=== PATIENT | female | born 1980 | race Caucasian/White ===

== ENCOUNTER 2025-04-09 23:18 | Emergency (ER) | payer BC, MEDICARE, SELFPAY ==
--- OUTSIDE RECORDS SUMMARY | 2024-07-14 05:30 | XMS_ITS ---
Author Organization The [facility] in [place] Address [address] [place] [address] Care Team Providers Care Payment Manager Name Role Phone Afshin Mclean MD Primary Care Provider Douglas Gilliam [phone] REASON FOR VISIT rt cath removal Encounters Encounter Location Date Provider Diagnosis [facility] [address] [place] [address] 07/14/2024 Douglas Morelos End stage chronic kidney disease N18.6 Assessments Encounter Date Diagnosis (ICD Code) Assessment Notes Treatment Notes Treatment Clinical Notes Section Notes 07/14/2024 End stage chronic kidney disease (ICD-10 - N18.6) Plan Of Treatment No Information Progress Notes * Sharifa MEHTA MDOB: (43 yo F)Acc No.[id number]:07/14/2024 Patient: Teetee KATZ Sharifa Luque Provider: Lala Morelos MD :1980 A ge:43 Y S ex:Female Date:07/14/2024 Address:[address] [place] [id number] Pcp:Afshin Mclean MD * * Sign off status: Completed Visit Status: P EN (Pending) true * Provider: Lala Morelos MD Date: 1 Generated for Printi ng/Faxing/eTransmitting on: 0 04/09/2025 11:32 PM EDT
--- OUTSIDE RECORDS SUMMARY | 2024-07-14 05:45 | XMS_ITS ---
Author Organization The [place] [facility] in [place] Address [address] [place] [address] Care Team Providers Care Fuller Brush Worker Name Role Phone Caridad TORREZ, Afshin Primary Care Provider Unavail able Provider, [facility] Unavailable [phone] Encounters Encounter Location Date Provider Diagnosis [facility] [address] [place] [address] 07/14/2024 [facility] Provider Plan Of Treatment No Information Progress Notes * Sharifa MEHTA MDOB: (44 yo F)Acc No.[id number]:07/14/2024 UNLOCKED PROGRESS NOTE Patient: Teetee BRITTONSharifa LUCIO Provider: Bashir PIPER Provider :1980 A ge:43 Y S ex:Female Date:07/14/2024 Address:[address] [place], [place] [phone] Pcp:Afshin Mclean MD Check In:08:47 AM EST * * Electronic signature of ASC Provider on 04/09/2025 at 11:31 PM EDT Sign off status: Pending Visit Status: A RR (Check-In) * Provider: A FELIZ Provider Date: Generated for Printi ng/Faxing/eTransmitting on: 0 04/09/2025 11:31 PM EDT
--- OUTSIDE RECORDS SUMMARY | 2024-08-28 10:12 | XMS_ITS ---
Author Organization The [facility] in [place] Address [address] [place] [address] Care Team Providers Care Mechanical Integrity Specialist Name Role Phone Afshin Mclean MD Primary Care Provider Yara Plaza [phone] REASON FOR VISIT Dialysis Discharge 07/24/24 Encounters Encounter Location Date Provider Diagnosis [facility] Nephrology [address] [address] 08/28/2024 Yara Church Plan Of Treatment No Information Progress Notes * Sharifa MEHTA MDOB: (43 yo F)Acc No.[id number]:08/28/2024 Patient: Sharifa PIKE :1980 A ge:43 Y S ex:Female Address:[address] [place] [address], [phone] * true * Date: Generated for Printi ng/Faxing/eTransmitting on: 0 04/09/2025 11:31 PM EDT
[2025-04-09 23:20] VITALS: BP 181/101; PULSE 82; TEMP 36.6; O2SAT 97; BMI 37.1
--- OUTSIDE RECORDS SUMMARY | 2025-04-09 23:31 | XMS_ITS | Encounter Summary ---
Author Organization [facility] Address [address] [place] [address] Care Team Providers Care Director Of Content And Programming Name Role Phone ChaoAfshin Primary Care Provider [phone] Teddy Diehl RN Unavailable Unavailable Kimberly Madrigal RN Unavailable Unavailable Source Comments In the event this information is protected by the Federal Confidentiality of Alcohol and Drug AbusePatient Records regulations: The Federal rules restrict any use of the information to criminally investigate or prosecute any alcohol or drug abuse patient.[facility] Encounter Details Date Type Department Care Team (Late st Contact Info) Description 09/03/2023 Patient Msg Transplant Center [address] [phone] Provider, [facility] Holiday updates! Happy Holidays! Social History Tobacco Use Types Packs/Day Years Used Date Smoking Tobacco: Former Cigarettes Smokeless Tobacco: Never Alcohol Use Standard Drinks/Week Comments Not Currently 0 (1 standard drink = 0.6 oz pur e alcohol) Area Deprivation Index Answer Date Justin rded National Score (1-100), lower number is lower ri sk 88 05/17/2023 State Score (1-10), lower number is lower risk 8 05/17/2023 Data from: https://www.neighborhoodatlas.medicine.[facility].edu/. Last address used for calculation [address] [facility] 05/17/2023 Comments No Sex and Gender Information Value Date Recorded Sex Assigned at Not on file Legal Sex Female 2:40 AM EDT Gender Identity Not on file Sexual Orientation Not on file documented as of this encounter Plan of Treatment Upcoming Encounters Date Type Department Care Team (Late st Contact Info) Description 05/06/2025 11:00 AM EDT Office Visit Transplant Center [address] [address] Clinic, Kidney Txp [address] [place] [address] Kid Txp - follow up appointment in Transplant clinic on 05/06/2025 documented as of this encounter Visit Diagnoses Not on filedocumented in this encounter Care Teams Director Of Content And Programming Relationship Specialty Start Date End Date Afshin Chao [address] [place] [address] PCP - General Family Medicine 05/14/23 Teddy Diehl, RN Registered Nurse Transplant Center 06/29/23 Kimberly Madrigal, RN Registered Nurse Transplant Center 03/12/25 [facility] 06/07/23 documented as of this encounter
--- OUTSIDE RECORDS SUMMARY | 2025-04-09 23:31 | XMS_ITS | Encounter Summary ---
Author Organization [facility] Address [address] [place] [address] Care Team Providers Care Medical Claims Assistant Name Role Phone arron Afshin Gavin Primary Care Provider [phone] Teddy iDehl RN Unavailable Unavailable Kimberly Madrigal RN Unavailable Unavailable Source Comments In the event this information is protected by the Federal Confidentiality of Alcohol and Drug AbusePatient Records regulations: The Federal rules restrict any use of the information to criminally investigate or prosecute any alcohol or drug abuse patient.[facility] Encounter Details Date Type Department Care Team (Late st Contact Info) Description 09/22/2024 Abstract Kidney Medicine [facility] [address] [phone] Cayla Pacheco MD [address] [place] [address] Social History Tobacco Use Types Packs/Day Years Used Date Smoking Tobacco: Former Cigarettes Smokeless Tobacco: Never Alcohol Use Standard Drinks/Week Comments Not Currently 0 (1 standard drink = 0.6 oz pur e alcohol) [facility] Utilities Answer Date Recorded In the past 12 months has [employer] electric, gas, oil, or water company threatened to shut off services in your home? No 08/11/2024 PHQ-2 Answer Date Recorded PHQ-2 score 0 01/02/2024 Hunger Vital Sign Answer Date Recorded Within the past 12 months, y ou worried that your food would run out before you got the money to buy more. Never true 08/11/20 24 Within the past 12 months, t he food you bought just didn't last and you didn't have money to get more. Never true 08/11/2024 PRAPARE - Transportation Answer Date Re corded In the past 12 months, has l ack of transportation kept you from medical appointments or from getting medications? No 07/19 In the past 12 months, has l ack of transportation kept you from meetings, work, or from getting things needed for daily living? No 08/11/2024 Housing Stability Vital Sign Answer Vinnie e Recorded In the last 12 months, was t here a time when you were not able to pay the mortgage or rent on time? No 08/11/2024 In the past 12 months, how m any times have you moved where you were living? 0 08/11/2024 At any time in the past 12 m [facility], were you homeless or living in a skilled nursing (including now)? No 08/11/2024 Area Deprivation Index Answer Date Justin rded National Score (1-100), lower number is lower ri sk 88 05/17/2023 State Score (1-10), lower number is lower risk 8 05/17/2023 Data from: https://www.neighborhoodatlas.medicine.[facility].edu/. Last address used for calculation [address] [place] [address] 05/17/2023 Comments No Sex and Gender Information Value Date Recorded Sex Assigned at Not on file Legal Sex Female 2:40 AM EDT Gender Identity Not on file Sexual Orientation Not on file documented as of this encounter Functional Status * Are you deaf or do you have serious difficulty hearing? Answer Date of Assessment Author No 08/12/2024 4:29 PM Sylwia Espinoza RN * Are you blind or do you have serious difficulty seeing, even when wearing glasses? Answer Date of Assessment Author No 08/12/2024 4:29 PM Sylwia Espinoza RN * Do you have serious difficulty walking or climbing stairs? Answer Date of Assessment Author No 08/12/2024 4:29 PM Sylwia Espinoza RN * Do you have difficulty dressing or bathing? Answer Date of Assessment Author No 08/12/2024 4:29 PM Sylwia Espinoza RN * Because of a physical, mental, or emotional condition, do you have difficulty doing errands alone such as visiting a doctor's office or shopping? Answer Date of Assessment Author No 08/12/2024 4:29 PM Sylwia Espinoza RN documented as of this encounter Mental Status * Because of a physical, mental, or emotional condition, do you have serious difficulty concentrating, remembering, or making decisions? Answer Entry Date Author No 08/12/2024 4:29 PM Sylwia Espinoza RN documented in this encounter Plan of Treatment Upcoming Encounters Date Type Department Care Team (Late st Contact Info) Description 05/06/2025 11:00 AM EDT Office Visit Transplant Center [address] [address] Clinic, Kidney Txp [address] [place] [address] Kid Txp - follow up appointment in Transplant clinic on 05/06/2025 documented as of this encounter Visit Diagnoses Not on filedocumented in this encounter Care Teams Medical Claims Assistant Relationship Specialty Start Date End Date Afshin Chao [address] [place] [address] PCP - General Family Medicine 05/14/23 Teddy Diehl, RN Registered Nurse Transplant Center 06/29/23 Kimberly Madrigal, MINAL Registered Nurse Transplant Center 03/12/25 [facility] [employer] [facility] 06/07/23 documented as of this encounter
--- OUTSIDE RECORDS SUMMARY | 2025-04-09 23:31 | XMS_ITS | Clinical Summary ---
Author Organization [employer] Address [id number] [address] [place] [address] Care Team Providers Care Mold Washer Name Role Phone Eric Malave MD Primary Care Provider [phone] Allergies Active Allergy Reactions Criticality Noted Date Comments Lisinopril Swelling Medium 11/29/2017 Medications blood-glucose meter [facility] Accu Chek Glucometer, Diagnosis: E11.9 1 each 11/06/19 19 Active blood sugar diagnostic (TRUE METRIX GLUCOSE TEST STRIP) strip USE TO TEST 2 TIMES DAILY. 100 strip 5 07/13/20 22 Active acetaminophen (TYLENOL EXTRA STRENGTH) 500 mg tablet Take 1 tablet (500 mg total) by mouth every 6 (six) hours as needed for pain or fever (For mild to moderate pain, fevers). Active tacrolimus (PROGRAF) 1 mg capsuleIndicat ions:preventio n of liver transplant rejection Take 3 capsules (3 mg total) by mouth every 12 (twelve) hours Indications: liver transplant rejection prevention. Take a total of 3 mg capsules in the morning and 3 capsules at bedtime Activ e ursodioL (ACTIGALL) 300 mg capsuleIndicat ions:cholelith iasis prevention Take 1 capsule (300 mg total) by mouth in the morning and 1 capsule (300 mg total) at noon and 1 capsule (300 mg total) in the evening. Take with meals. Indications: treatment to prevent gallstones. 270 capsule 3 09/18/19 24 Active magnesium oxide (MAGOX) 400 mg tablet Take 1 tablet (400 mg total) by mouth in the morning. 08/15/20 Active mycophenolate (CELLCEPT) 250 mg capsule Take 3 capsules (750 mg total) by mouth in the morning and 3 capsules (750 mg total) before bedtime. 08/15/20 Active predniSONE (DELTASONE) 5 mg tablet Take 1 tablet (5 mg total) by mouth in the morning and 1 tablet (5 mg total) before bedtime. 07/28/20 Active SITagliptin phosphate (JANUVIA) 100 mg tabletIndicati ons:Type 2 diabetes mellitus with obesity (CMS-HCC) Take 1 tablet (100 mg total) by mouth in the morning. 90 tablet 3 11/29/19 25 Active escitalopram (LEXAPRO) 10 mg tablet Take 1 tablet (10 mg total) by mouth in the morning. 90 tablet 3 11/29/19 25 Active pantoprazole (PROTONIX) 40 mg EC tabletIndicati ons:gastroesop hageal reflux disease Take 1 tablet (40 mg total) by mouth in the morning and 1 tablet (40 mg total) in the evening. Take before meals. Indications: gastroesophageal reflux disease. 180 tablet 3 11/29/19 Active metoprolol tartrate (LOPRESSOR) 25 mg tablet Take 1 tablet (25 mg total) by mouth in the morning and 1 tablet (25 mg total) before bedtime. 180 tablet 3 11/29/19 Active Active Problems Problem Noted Date Diagnosed Date Stage 5 chronic kidney disease on chronic dialys is 2024 Immunocompromised 2024 Malnutrition of mild degree 2024 Focal (segmental) acute (rev ersible) ischemia of small intestine 2024 Chronic heart failure with preserved ejection fr action 2024 Respiratory failure, post-operative 2024 Alcohol use disorder, severe, in early remission 2024 S/P kidney transplant 2024 S/P liver transplant 2024 NADER (acute kidney injury) 05/11/2023 Acute on chronic anemia 05/11/2023 Thrombocytopenia 05/11/2023 Coagulopathy 05/11/2023 Hyperammonemia 05/11/2023 Hypoproteinemia 05/11/2023 Anemia 10/21/2018 Prolonged emergence from general anesthesia 12/2018 Overview (10/21/2018): says had trouble waking up after GB surgery at [facility] 01/04/2018 Obstructive sleep apnea syndrome 01/04/2018 Diabetes mellitus type 2 in obese 01/04/2018 Overview (12/17/2023): replacing diagnoses that were inactivated after the 12/16 regulatory import Essential hypertension 11/29/2017 Tachycardia 11/29/2017 Resolved Problems Problem Noted Date Diagnosed Date Resolved Date Hepatic encephalopathy 11/28/202411/28 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/11/2023 2024 Gastroesophageal reflux dise ase without esophagitis 01/04/2018 05/16/2019 Diabetes mellitus without complication 11/29/2017 01/04/2018 Body mass index (BMI) 50.0-59.9, adult 11/29/2017 2024 Heart abnormality 11/29/2017 Encounters Date Type Department Care Team Description 03/18/2025 10:55 AM EDT - 03/18/2025 11:59 PM EDT Hospital Encounter [facility] - Mammography/DEXA Imaging [address] [place] [phone] Encounter for screening mammogram for malignant neoplasm of breast Discharge Disposition: Home 03/17/2025 Travel 02/13/2025 Orders Only [facility] [address] [place] [id number] External, Scanning Provider from Last 3 Months Immunizations Immunization Administration Dates Next Due Influenza Whole 07/18/2010,07/08/2009 Influenza, Injectable, Quadrivalent 08/16/2023 Influenza, Injectable, quadrivalent (PF) 020 Influenza, Unspecified 07/09/2018 Pneumococcal Conjugate 20-valent 05/19/2023 Tdap 05/19/2023,11/19/2013 Zoster Vaccine Recombinant 05/22/2023 Family History Medical History Relation Name Comments Diabetes Father Carlo Roberts Hypertension Father Carlo Roberts Anesthesia problems Mother Priti Roberts prolonge d emergence and N/V Arthritis Mother Priti Roberts Hypertension Mother Priti Roberts Breast cancer Neg Hx Relation Name Status Comments Father Carlo Roberts Alive Mother Priti Roberts Alive Paternal Grandfather Alive Paternal Grandmother Alive Social History Tobacco Use Types Packs/Day Years Used Date Smoking Tobacco: Former Cigarettes Smokeless Tobacco: Never Tobacco Cessation:Counseling Given: Not Answered Comments:quit 05/2018 occasional cigarette 2 per week Alcohol Use Standard Drinks/Week Comments Not Currently 0 (1 standard drink = 0.6 oz pure alcohol) Last drink December 23 2022 per patient report AUDIT-C Answer Date Recorded Frequency of Alcohol Consumption Monthly or less 12/19/2018 Average Number of Drinks 1 or 2 019 Frequency of Binge Drinking Never 12/2018 PHQ-2 Answer Date Recorded Total Score 0 2024 Childcare Answer Date Recorded Childcare Unknown 02/24/2019 Employment Answer Date Recorded Employment Unknown 02/24/2019 Hunger Screening Answer Date Recorded Within the past 12 months we worried whether our food would run out before we got money to buy more. Never True 2024 Within the past 12 months th e food we bought just didn't last and we didn't have money to get more. Never True 2024 Purpose - Life Answer Date Recorded Purpose and direction in life Unknown Comments No Sex and Gender Information Value Date Recorded Sex Assigned at Female 02/15/2025 1:29 PM EDT Legal Sex Female 11:25 AM EDT Gender Identity Female 02/15/2025 1:29 PM EDT Sexual Orientation Choose not to disclose 2024 1:29 PM EDT Last Filed Vital Signs Vital Sign Reading Time Taken Comments Blood Pressure 132/70 2024 9:58 AM EDT Pulse 55 2024 9:58 AM EDT Temperature 36.9 C (98.5 F) 05/14/2023 11:59 AM EDT Respiratory Rate 18 2024 9:58 AM EDT Oxygen Saturation 99% 2024 9:58 AM EDT Inhaled Oxygen Concentration - - Weight 99.8 kg (220 lb) 2024 9:58 AM EDT Height 165.1 cm (5' 5 ) 08/26/2024 10:10 AM EST Body Mass Index 36.61 08/26/2024 10:10 AM EST Plan of Treatment Upcoming Encounters Date Type Department Care Team (Late st Contact Info) Description 06/08/2025 9:30 AM EDT Office Visit [facility] [address] [place] [phone] Eric Malave MD [address] [place] [address] Health Maintenance Due Date Last Done Comments Adult BMI Follow Up Plan 11/27/1997 Diabetic Foot Exam 11/29/2018 11/29/2017 COVID-19 Vaccine (3 - 2023-2 5 season) 2024 03/03/2021, 02/10/2021 Influenza Vaccine 05/18/2025 08/16/2023, , 07/09/2018, Additional history exists Colonoscopy 10/30/2025 10/30/2022 Adult BMI Screening 2025 2024 Depression Screening 2025 2024 Tobacco Screening 2025 2024 Diabetic Ophthalmology Exam 02/13/2026 02/13/2025, 0 01/24/2021 Mammogram 03/18/2026 03/18/2025, 11/16, 04/24/2020 DTaP,Tdap and Td Vaccines (3 - Td or Tdap) 05/19/2033 05/19/2023, 11/19/2013 Pap Smear Discontinued 05/18/2023 Goals Goal Patient Goal Type Associated Problems Recent Progress Patient-Stated? Author abstain from alcohol General Yes Gaviota Wilson, LENORA Note: Evaluation of progress towards goal: Maintain sobriety Medical Devices Not on file Procedures Procedure Name Priority Date/Time Associated Diagnosis Comments MAMM SCREENING BILATERAL W CAD Routine 03/18/2025 11:08 AM EDT Encounter for screening mammogram for malignant neoplasm of breast DIABETES EYE EXAM Routine 02/13/2025 HM COLONOSCOPY WITH EGD Routine 10/30/2022 from Last 3 Months or Most Recently Relevant to Health Maintenance Results * Mammography screening bilateral with CAD (03/18/2025 11:08 AM EDT) Anatomical Region Laterality Modality Breast Bilateral Mammography 03/23/2025 8:18 AM EDT Narrative 03/23/2025 8:22 AM EDT SHARIFA Luque JANINE 1980 [id number] EXAM: MAMM SCREENING BILATERAL W CAD, 03/18/2025 10:56 AM CLINICAL INDICATIONS: Screening, Encounter for screening mammogram for malignant neoplasm of breast COMPARISON: 04/24/2020 and 12/10/2023 TECHNIQUE: Bilateral digital tomosynthesis MLO and CC views of the breasts were obtained, with creation of synthetic 2D views. Computer aided detection was utilized. FINDINGS: There are scattered areas of fibroglandular density. There are no suspicious masses, calcifications, or areas of architectural distortion. IMPRESSION: No mammographic evidence of malignancy. BI-RADS: BI-RADS 1 - Negative RECOMMENDATION: Routine screening mammogram in 1 year. RISK ASSESSMENT: TC Lifetime risk: 9.37%. The patient's reported personal and family medical history was used calculate their Tyrer-Cuzick lifetime risk of malignancy. Scores less than 20% are not considered high risk per ACR guidelines and patient should continue with the above recommendation. Finalized by Cristopher Shelley MD on 03/23/2025 8:22 AM 1 b MAMM 1 YR FDA Accredited Performing Facility: [facility] - Mammography/DEXA Imaging [address] [address] Procedure Note Cristopher Shelley MD - 03/23/2025 SHARIFA Luque JANINE 1980 [id number] EXAM: MAMM SCREENING BILATERAL W CAD, 03/18/2025 10:56 AM CLINICAL INDICATIONS: Screening, Encounter for screening mammogram formalignant neoplasm of breast COMPARISON: 04/24/2020 and 12/10/2023 TECHNIQUE: Bilateral digital tomosynthesis MLO and CC views of the breastswere obtained, with creation of synthetic 2D views. Computer aideddetection was utilized. FINDINGS: There are scattered areas of fibroglandular density. There are no suspicious masses, calcifications, or areas of architecturaldistortion. IMPRESSION: No mammographic evidence of malignancy. BI-RADS: BI-RADS 1 - Negative RECOMMENDATION: Routine screening mammogram in 1 year. RISK ASSESSMENT: TC Lifetime risk: 9.37%. The patient's reported personal and family medical history was usedcalculate their [facility] lifetime risk of malignancy. Scores less than20% are not considered high risk per ACR guidelines and patient shouldcontinue with the above recommendation. Finalized by Cristopher Shelley MD on 03/23/2025 8:22 AM 1 b MAMM 1 YR FDA Accredited Performing Facility: [facility] - Mammography/DEXA Imaging [address] [facility] [address] [place] Afshin Mclean MD IMG MAMMOGRAPHY ORDERABLES F inal Result * DIABETES EYE EXAM (02/13/2025) 02/13/2025 us Scanning Provider External HEALTH MAINTENANCE Fi nal Result Performing Organization Address [facility] Co de Phone Number MANUALLY TRANSCRIBED RESULTS * COLONOSCOPY WITH EGD (10/30/2022) 10/30/2022 Impressions MANUALLY TRANSCRIBED RESULTS - 10/30/2022 Per office repeat cscope in 3 yrs us Scanning Provider External HEALTH MAINTENANCE Ed ited Result - Final Performing Organization Address [facility] Co de Phone Number MANUALLY TRANSCRIBED RESULTS from Last 3 Months or Most Recently Relevant to Health Maintenance [place] [address] [place] [address] MEDICARE Advance Directives * Full Code (Latest Code Status on File) Date Activated Date Inactivated Comments 05/11/2023 12:44 PM 05/14/2023 5:32 PM * Full Code Date Activated Date Inactivated Comments 10/30/2018 6:40 PM 10/31/2018 7:52 PM Care Teams Mold Washer Relationship Specialty Start Date End Date Eric Malave MD [address] [place] [address] PCP - General Internal Medicine 02/13/25
--- OUTSIDE RECORDS SUMMARY | 2025-04-09 23:31 | XMS_ITS | Encounter Summary ---
Author Organization [facility] Address [id number] [address] [place] [address] Care Team Providers Care Senior Licensing Manager Name Role Phone Eric Malave MD Primary Care Provider [phone] Encounter Details Date Type Department Care Team (Late st Contact Info) Description 08/09/2020 [facility]phone [facility] [address] [place] [address] Afshin Mclean MD [address]. Provider retired 12/16/24 [place], [place] [id number] Social History Tobacco Use Types Packs/Day Years Used Date Smoking Tobacco: Some Days Cigarettes Smokeless Tobacco: Never Comments:quit 05/2018 occasio nal cigarette 2 per week Alcohol Use Standard Drinks/Week Comments Yes 1 (1 standard drink = 0.6 oz pur e alcohol) AUDIT-C Answer Date Recorded Frequency of Alcohol Consumption Monthly or less 12/19/2018 Average Number of Drinks 1 or 2 019 Frequency of Binge Drinking Never 12/2018 PHQ-2 Answer Date Recorded PHQ-2 Score 0 09/06/2018 Childcare Answer Date Recorded Childcare Unknown 02/24/2019 Employment Answer Date Recorded Employment Unknown 02/24/2019 Comments No Sex and Gender Information Value Date Recorded Sex Assigned at Female 02/15/2025 1:29 PM EDT Legal Sex Female 11:25 AM EDT Gender Identity Female 02/15/2025 1:29 PM EDT Sexual Orientation Choose not to disclose 2024 1:29 PM EDT COVID-19 Exposure Response Date Recorded In the last month, have you been in contact with someone who was confirmed or suspected to have Coronavirus / COVID-19? No / Unsure 07/21/2020 8:16 AM EST documented as of this encounter Plan of Treatment Upcoming Encounters Date Type Department Care Team (Late st Contact Info) Description 06/08/2025 9:30 AM EDT Office Visit [facility] [address] [place] [phone] Eric Malave MD [address] [place] [phone] documented as of this encounter Visit Diagnoses Not on filedocumented in this encounter Additional Health Concerns Infection Onset Date Last Indicated Resolved Time COVID-19 Rule-Out 07/05/2021 07/05/2021 07/06/2021 5:20 PM EDT Enteric Rule-Out 09/05/2023 09/05/2023 09/12/2023 11:12 PM EST Assessment Noted Time PHQ-9 Depression Total Score: 0 10/03/19 9:00 AM EST A Body Mass Index follow-up plan has been documented for the patient 12/19/2018 3:58 PM EDT documented as of this encounter Care Teams Senior Licensing Manager Relationship Specialty Start Date End Date Eric Malave MD [address] [place] [phone] PCP - General Internal Medicine 02/13/25 documented as of this encounter
--- OUTSIDE RECORDS SUMMARY | 2025-04-09 23:31 | XMS_ITS | Encounter Summary ---
Author Organization [facility] Address [address] [place] [id number] Care Team Providers Care Manager Imaging Name Role Phone ChaoAfshin Primary Care Provider [phone] Teddy Diehl RN Unavailable Unavailable Kimberly Madrigal RN Unavailable Unavailable Source Comments In the event this information is protected by the Federal Confidentiality of Alcohol and Drug AbusePatient Records regulations: The Federal rules restrict any use of the information to criminally investigate or prosecute any alcohol or drug abuse patient.[facility] Encounter Details Date Type Department Care Team (Late st Contact Info) Description 09/03/2023 Patient Msg Transplant [facility] [address] [phone] Provider, [facility] Holiday updates! Happy Holidays! Social [...] is lower risk 8 05/17/2023 Data from: https://www.neighborhoodatlas.medicine.[facility].edu/. Last address used for calculation [address] [facility] 05/17/2023 Comments No Sex and Gender Information Value Date Recorded Sex Assigned at Not on file Legal Sex Female 2:40 AM EDT Gender Identity Not on file Sexual Orientation Not on file documented as of this encounter Plan of Treatment Upcoming Encounters Date Type Department Care Team (Late st Contact Info) Description 05/06/2025 11:00 AM EDT Office Visit [facility] [address] [address] Clinic, Kidney Txp [address] [place] [address] Kid Txp - follow up appointment in Transplant clinic on 05/06/2025 documented as of this encounter Visit Diagnoses Not on filedocumented in this encounter Care Teams Manager Imaging Relationship Specialty Start Date End Date Afshin Chao [address] [place] [address] PCP - General Family Medicine 05/14/23 Teddy Diehl, RN Registered Nurse Trans[facility] Center 06/29/23 Kimberly Madrigal, RN Registered Nurse [facility] 03/12/25 [facility] [employer] [facility] 06/07/23 documented as of this encounter
--- OUTSIDE RECORDS SUMMARY | 2025-04-09 23:31 | XMS_ITS | Encounter Summary ---
Author Organization [email or web address] Address [id number] [address] [place] [address] Care Team Providers Care Groover And Striper Operator Name Role Phone Eric Malave MD Primary Care Provider [phone] Reason for Visit * Reason Onset Date Comments Med Refill 04/27/2020 Encounter Details Date Type Department Care Team (Late st Contact Info) Description 04/27/2020 Refill [facility] [address] [place] [phone] Keysha Calderon LPN Social History Tobacco Use Types Packs/Day Years [...] have Coronavirus / COVID-19? No / Unsure 04/24/2020 9:55 AM EDT documented as of this encounter Plan of Treatment Upcoming Encounters Date Type Department Care Team (Late st Contact Info) Description 06/08/2025 9:30 AM EDT Office Visit [facility] [address] [place] [phone] Eric Malave MD [address] [place] [address] [phone] documented as of this encounter Visit Diagnoses [...] documented as of this encounter Care Teams Groover And Striper Operator Relationship Specialty Start Date End Date Eric Malave MD [address] [place] [address] [phone] PCP - General Internal Medicine 02/13/25 documented as of this encounter
--- OUTSIDE RECORDS SUMMARY | 2025-04-09 23:31 | XMS_ITS | Encounter Summary ---
Author Organization [facility] Address [address] [place] [address] Care Team Providers Care Manager Coding Name Role Phone arron Afshin Gavin Primary Care Provider [phone] Teddy Diehl RN Unavailable Unavailable Kimberly Madrigal RN Unavailable Unavailable Source Comments In the event this information is protected by the Federal Confidentiality of Alcohol and Drug AbusePatient Records regulations: The Federal rules restrict any use of the information to criminally investigate or prosecute any alcohol or drug abuse patient.[facility] Encounter Details Date Type Department Care Team (Late st Contact Info) Description 08/13/2023 Lab Requisition [facility] [address] [place], [place] [phone] [place] [address] [place] [address] Social History Tobacco Use Types Packs/Day Years Used Date Smoking Tobacco: Former Cigarettes Smokeless Tobacco: Never Alcohol Use Standard Drinks/Week Comments Not Currently 0 (1 standard drink = 0.6 oz pur e alcohol) Area Deprivation Index Answer Date Justin rded National Score (1-100), lower number is lower ri sk 88 05/17/2023 State Score (1-10), lower number is lower risk 8 05/17/2023 Data from: https://www.neighborhoodatlas.[facility]/. Last address used for calculation [address] [facility] 05/17/2023 Comments No Sex and Gender Information Value Date Recorded Sex Assigned at Not on file Legal Sex Female 2:40 AM EDT Gender Identity Not on file Sexual Orientation Not on file documented as of this encounter Plan of Treatment Upcoming Encounters Date Type Department Care Team (Late st Contact Info) Description 05/06/2025 11:00 AM EDT Office Visit [facility] [address] [address] Clinic, Kidney Txp [address] [place] [address] Kid Txp - follow up appointment in Transplant clinic on 05/06/2025 documented as of this encounter Procedures Procedure Name Priority Date/Time Associated Diagnosis Comments COVID NAAT, UPPER RESPIRATORY, ROUTINE Routine 08/13/2023 12:01 AM EST documented in this encounter Results * COVID NAAT, UPPER RESPIRATORY, ROUTINE (08/13/2023 12:01 AM EST) SARS-CoV-2 (Agent of COVID-19) RNA Not detected See comment [facility] 08/14/2023 3:17 PM EST [facility] Comment: The method used is RT-PCR or an equivalent NAAT method. Reference Range (the expected result in uninfected individuals): Not detected Swab NASOPHARYNGEAL SWAB / Unknown 08/13/2023 12:01 AM EST 08/13/2023 9:36 AM EST Narrative [facility] - 08/14/2023 3:17 PM EST For upper respiratory tract samples, this test has been authorized by FDA under Emergenecy Use Authorization (EUA). For lower respiratory tract samples, this test was developed and its performance characteristics determined by [facility]'s [facility] ([facility]). It has not been cleared or approved by the FDA. [facility] is regulated under CLIA as qualified to perform high-complexity testing. This test is used for clinical purposes. It should not be regarded as investigational or for research. Test performed by [facility], [facility], [address] [place] [address]. [place] Judson Perez DO MICROBIOLOGY Final Result [facility] [address] [place] [address] [place] [address], documented in this encounter Visit Diagnoses Not on filedocumented in this encounter Care Teams Manager Coding Relationship Specialty Start Date End Date Afshin Chao [address] [place] [address] PCP - General Family Medicine 05/14/23 Teddy Diehl, RN Registered Nurse [facility] 06/29/23 Kimberly Madrigal, RN Registered Nurse [facility] Center 03/12/25 [facility] [employer] [facility] 06/07/23 documented as of this encounter
--- OUTSIDE RECORDS SUMMARY | 2025-04-09 23:31 | XMS_ITS | Encounter Summary ---
Author Organization [facility] Address [address] [place] [address] Care Team Providers Care Passenger Interline Clerk Name Role Phone arron Afshin Gavin Primary Care Provider [phone] Teddy Diehl RN Unavailable Unavailable Kimberly Madrigal RN Unavailable Unavailable Source Comments In the event this information is protected by the Federal Confidentiality of Alcohol and Drug AbusePatient Records regulations: The Federal rules restrict any use of the information to criminally investigate or prosecute any alcohol or drug abuse patient.[facility] Encounter Details Date Type Department Care Team (Late st Contact Info) Description 07/06/2023 Lab Requisition [facility] [address] [place], [place] [phone] [place] [address] [place] [address] Social History Tobacco Use Types [...] is lower risk 8 05/17/2023 Data from: https://www.neighborhoodatlas.[facility].edu/. Last address used for calculation [address] 05/17/2023 Comments No Sex and Gender Information Value Date Recorded Sex Assigned at Not on file Legal Sex Female 2:40 AM EDT Gender Identity Not on file Sexual Orientation Not on file documented as of this encounter Plan of Treatment Upcoming Encounters Date Type Department Care Team (Late st Contact Info) Description 05/06/2025 11:00 AM EDT Office Visit [facility] [address] [address] Clinic, Kidney Txp [address] [place] [address] Kid Txp - follow up appointment in Transplant clinic on 05/06/2025 documented as of this encounter Procedures Procedure Name Priority Date/Time Associated Diagnosis Comments BACTERIAL CULTURE, BLOOD Routine 07/06/2023 12:18 PM EDT CDIFF PCR W/RFLX EIA IF POSITIVE Routine 07/06/2023 6:00 AM EDT URINALYSIS, WITH MICROSCOPIC STAT 07/06/2023 3:20 AM EDT documented in this encounter Results * BLOOD CULTURE (07/06/2023 12:18 PM EDT) Culture, Blood No growth 5 days 07/11/2023 12:52 PM EDT [facility] Blood BLOOD SPECIMEN / Unknown Port - Continuous Access Dev. / Unknown 07/06/2023 12:18 PM EDT 07/06/2023 2:47 PM EDT Judson Perez DO MICROBIOLOGY Final Result [facility] [address] [facility] Desk [address] [address], * CDIFF PCR W/RFLX EIA IF POSITIVE (07/06/2023 6:00 AM EDT) C. difficile PCR Negative for C. difficile toxin by PCR Negative for C. difficile toxin by PCR [employer] GENEXPERT COVID19 07/06/2023 5:14 PM EDT [facility] Stool STOOL SPECIMEN / Unknown Non Blood / Unknown 07/06/2023 6:00 AM EDT 07/06/2023 9:52 AM EDT us Maura Cohen MD LABORATORY Final Result [facility] [address] [facility] Des[address] [id number], * (ABNORMAL) URINALYSIS, WITH MICROSCOPIC (07/06/2023 3:20 AM EDT) Color Yellow Yellow 07/06/2023 10:02 AM EDT [facility] Clarity Dense Turbid(A) Clear 07/06/2023 10:02 AM EDT [facility] Glucose, Urine Negative Trace, Negative 07/06/2023 10:02 AM EDT [facility] Bilirubin, Urine Negative Negative 07/06/20 10:02 AM EDT [facility] Ketones, Urine Negative Negative, Trace 07/06/2023 10:02 AM EDT [facility] Specific [place], Ur 1.010 1.005 - 1.030 07/06/2023 10:02 AM EDT [facility] Hemoglobin/Blood ,Ur 1+(A) Negative, Trace 07/06/2023 10:02 AM EDT [facility] pH, Urine 6.0 5.0 - 8.0 07/06/2023 10:02 AM EDT [facility] Protein, Urine Trace Trace, Negative 07/06/2023 10:02 AM EDT [facility] Urobilinogen Negative Negative 07/06/2023 10:02 AM EDT [facility] Nitrites Negative Negative 07/06/2023 10:02 AM EDT [facility] Leuk Esterase 500 Leonor/uL(A) Negative, 25 Leonor/uL 07/06/2023 10:02 AM EDT [facility] WBC, Urine >25 /HPF(A) 0-5 /HPF 07/06/2023 10:02 AM EDT [facility] RBC, Urine 0-3 /HPF 0-3 /HPF 07/06/2023 10:02 AM EDT [facility] Bacteria Few(A) None Seen /HPF 07/06/2023 10:02 AM EDT [facility] Urine Random URINE SPECIMEN OBTAINED BY CLEAN CATCH PROCEDURE / Unknown Non Blood / Unknown 07/06/2023 3:20 AM EDT 07/06/2023 9:20 AM EDT us Judson Perez DO LABORATORY Final Result [facility] [address] documented in this encounter Visit Diagnoses Not on filedocumented in this encounter Additional Health Concerns Infection Onset Date Last Indicated Resolved Time COVID-19 Rule-Out 07/23/2023 07/23/2023 07/23/2023 2:25 AM EST Respiratory Rule-Out 07/23/2023 07/23/2023 023 2:25 AM EST COVID-19 Confirmed 07/23/2023 07/23/2023 8:51 PM EST documented as of this encounter Care Teams Passenger Interline Clerk Relationship Specialty Start Date End Date Afshin Chao [address] [place] [address] PCP - General Family Medicine 05/14/23 Teddy Diehl, RN Registered Nurse [facility] 06/29/23 Kimberly Madrigal, RN Registered Nurse Transplant Center 03/12/25 [employer] [facility] 06/07/23 documented as of this encounter
--- OUTSIDE RECORDS SUMMARY | 2025-04-09 23:32 | XMS_ITS | Clinical Summary ---
Author Organization 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 endorses intolerance to adhesive telemetry adhesives Lisinopril Swelling High 11/29/2017 Medications acetaminophen (TYLENOL) 500 MG tablet Take 1 tablet (500 mg total) by mouth every 6 (six) hours as needed for mild pain, moderate pain or Temp > or equal to 101F (38.3C). 3 Active acyclovir (ZOVIRAX) 400 MG tabletIndications :Medical prophylaxis Take 1 tablet (400 mg total) by mouth in the morning and 1 tablet (400 mg total) before bedtime. Indications: Medical prophylaxis. 3 Active epoetin rubén-epbx (RETACRIT) 50982 UNIT/ML solution injection Inject 1 mL (10,000 Units total) under the skin once a week. AT DIALYSIS 3 Active midodrine (PROAMATINE) 5 MG tablet 1 tablet (5 mg total) by PO/Per Tube route 3 (three) times a day as needed (SBP less than 90). 3 Active pantoprazole (PROTONIX) 40 MG EC/DR tablet Take 1 tablet (40 mg total) by mouth in the morning and 1 tablet (40 mg total) in the evening. Take before meals. 3 Active renal multivitamin (renal MVI) Tab/Cap tab/cap Take 1 each (1 capsule total) by mouth nightly. 3 Active sulfamethoxazole- trimethoprim (BACTRIM) 800-160 MG per tabletIndications :Prophylaxis Take 1 tablet by mouth 3 (three) times a week Indications: Prophylaxis. 3 Active tacrolimus (PROGRAF) 1 MG capsule Take 3 capsules (3 mg total) by mouth in the morning and 3 capsules (3 mg total) before bedtime. 3 Active ursodiol (ACTIGALL) 300 MG capsule Take 1 capsule (300 mg total) by mouth in the morning and 1 capsule (300 mg total) at noon and 1 capsule (300 mg total) in the evening. Take with meals. 3 Active Active Problems Problem Noted Date Diagnosed Date Mycosis 07/28/2023 Overview (07/30/2023): Last Assessment & Plan: 07/22 UA : +250 LE 07/22 UCX: >100 K yeast (done via straight cath) Patient is asymptomatic for UTI, makes very little urine So symptoms of vaginal yeast infection Plan Discussed with Dr. Dailey, no need to treat given no symptoms of UTI or vaginal yeast infecton COVID-19 07/23/2023 Overview (07/30/2023): Last Assessment & Plan: Assessment: Patient admitted from [place] with reported fever, weakness, COVID positive Patient reports feeling OK - reports previous small cough and runny nose. Continues with no resp complaints, satting well on RA Plan: -Txp ID following, appreciate recs. Completed course of Remdesevir (last dose 07/25). Continue dapto/zosyn while awaiting cultures from abd collection that was aspirated on 07/26 Dependence on renal dialysis 07/10/2023 Overview (07/30/2023): Last Assessment & Plan: Assessment: NADER-D, dialysis M, W, F Last HD session; 07/27, 2L removed Plan: -Nephrology consulted, appreciate recommendations for management and dialysis. Critical illness myopathy 06/30/2023 At increased risk for falls 06/27/2023 Impaired mobility 06/27/2023 Fever 06/26/2023 Overview (07/30/2023): Last Assessment & Plan: Assessment: Tmax 37.4 RVP 06/26-negative CT chest 06/26- Mixed changes with overall increase of dependent and basilar consolidative opacities with volume loss suggesting atelectasis. Superimposed secondary process such as infection/aspiration pneumonitis is not excluded. Patchy perihilar groundglass opacities with volume loss increased as well, possibly atelectatic. Superimposed edema, inflammation or hemorrhage cannot be entirely excluded. Mild increase of partially loculated small right pleural effusion. Persistent elevation of right hemidiaphragm. No other significant interval change. CT abdomen 06/26- No significant change in the low-attenuation regions in the liver transplant likely secondary to infarction. Mildly increased fluid along the right paracolic gutter and increased loculated small volume fluid in the pelvis since 06/13/2023. No foci of gas present within the fluid. Stable to slightly increased size of the poorly organized right upper quadrant subcutaneous shantelle-incisional fluid with new internal foci of gas. Plan: blood cultures NGTD Follow-up wound culture from right lateral angie removed monitor vitals Abnormal gait 06/18/2023 Physical deconditioning 06/18/2023 Leukocytosis 06/14/2023 Tube feeding diet 06/12/2023 Complication of transplanted liver 06/11/2023 Encephalopathy 06/07/2023 Acute posthemorrhagic anemia 06/06/2023 Overview (07/30/2023): Last Assessment & Plan: Assessment: - Patient was transfused during the transplant with 9 PRBC, 5 cryo, 4 PLT, 732 cells saver, 2 L albumin - On 06/06, RTOR for hematoma evacuation, washout and closure of fascia and skin. Patient received 1 units PRBCs, 1 units PLTs, 250 cc albumin, 900 cc crystalloid ~ 2 hours prior to incision and closure. - After RTOR on 06/06, patient required increased dose of pressors and was started on IVF. Patient given a total of 3 units of PRBCs - On 06/08, patient required 1 units PRBCs and she responded appropriately. 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 MELD prior to transplant: 32 - Prior to transplant, patient had urinary colonization of enterobacter cloacae (Zosyn resistant). Per ID, patient started on Meropenem. Cultures from transplant surgery and the subsequent washout were both negative. - On 06/03, the patient returned to the OR for an abdominal washout. - 06/04 LVUS: patent hepatic vasculature with appropriately directed flow. Increased diastolic flow in the main hepatic artery and its right sided branches, similar to prior exam. Stable postoperative perihepatic collection. Small perisplenic collection. - 06/05 LVUS: patent hepatic vasculature with appropriately directed flow. Peritransplant and perisplenic collections, not significantly changed. - 06/06 LVUS: patent hepatic vasculature with appropriately directed flow. Similar high diastolic flow in the hepatic arteries. Stable peritransplant collections. - On 06/06, RTOR for hematoma evacuation, washout and closure of fascia and skin. Patient received 1 units PRBCs, 1 units PLTs, 250 cc albumin, 900 cc crystalloid ~ 2 hours prior to incision and closure. - 06/07 LVUS in AM: patent hepatic vasculature with appropriately directed flow. Tardus parvus hepatic arterial waveforms compatible with impaired arterial inflow, likely stenosis at the hepatic arterial anastomosis. (Of note, afternoon LVUS on 06/07 showed the same results) - Patient was extubated on 06/07 - 06/08 LVUS: patent hepatic vasculature with appropriately directed flow. Persistent tadus parvus arterial waveforms, compatible with anastomotic stenosis. - WBC count remains elevated following RTOR on 06/06. Lactate down-trended to 1.2 on 06/08. - Patient passed a bedside swallow evaluation on 06/08 - Started midodrine 5 mg TID po/feeding tube on 06/08 in view of hypotension. - Patient started on ursodiol 300 mg po TID on 06/10/23. - 06/11 LVUS: patent hepatic vasculature with appropriately directed flow. Slight decrease in size of perihepatic fluid collections - CMV DNA 06/11: not detected - 06/12, WBC count up-trended to 23.01 and CRP up-trended from 12.3 to 14.8. A blood culture was ordered to r/o infection in the setting of previous colonization of enterobacter cloacae - As of 06/14, WBC count has slightly increased to 24.46, CRP remains stagnant at 13.3. Blood cultures are negative to date. - 06/12 LVUS: patent vasculature with appropriately directed flow - CT abd, pelvis w/o IV contrast 06/13: heterogeneous low-attenuation in the transplant liver right hepatic dome and lateral left lobe, likely related to areas of hepatic infarction. Peritransplant high attenuation fluid/blood produces as described, similar to recent ultrasounds. Poorly organized 10.4 x 3.9 x 6.7 cm RUQ SQ shantelle-incisional fluid. No internal gas. US liver 06/26-PATENT HEPATIC VASCULATURE WITH APPROPRIATELY DIRECTED FLOW. STABLE SONOGRAPHIC APPEARANCE OF THE TRANSPLANT LIVER, WITH AREAS OF PARENCHYMAL INFARCT AND PERITRANSPLANT HEMATOMA Plan: - CMP qAM, trend LFTs - Continue Acyclovir, Bactrim. Micafungin prophylaxis completed on 06/23) - Continue Heparin prophylaxis and Aspirin 81 mg po daily - Continue midodrine 5 mg TID - Small portion of lateral incision opened at bedside today- sent for culture. Pack w/ wet to dry kerlix BID Last Assessment & Plan: Assessment: 06/02/23-DBD-OLT (organox perfusion), piggyback, dCHA (GDA patch) - rCHA (left/right KING patch), Main PV - Main PV, quia-cz-meul US liver 07/10-patent hepatic vasculature with elevated hepatic arterial velocity, heterogeneous liver transplant parenchyma likely related to ischemia/infarct Plan: monitor liver function daily reviewed US liver done on 07/10 and no further intervention, continue to monitor Last Assessment & Plan: Assessment: 06/02/23-DBD-OLT (organox perfusion), piggyback, dCHA (GDA patch) - rCHA (left/right KING patch), Main PV - Main PV, [id number] CT abdomen 07/08-small to moderate bilateral pleural effusions with right lower lobe consolidative airspace opacities and mild atelectasis/infiltrate. diffusely fatty and mildly heterogeneous transplant liver, small right posterior subcapsular fluid and mild perihepatic ascites, diffuse subcutaneous emphysema along the midline abdominal wall incision extending to the 2.5cm right mid anterolateral abdominal wall subcutaneous air fluid collection medial to the skin angie, 7.8 X 2.4 X 5.5 CM right mid lateral abdominal wall fluid collection. diffuse soft tissue anasarca of the abdomen and pelvic side caballero -->patient followed by ID during previous admission (07/08-07/12) and completed course of Cipro, Flagyl, Zyvox on 07/18. Was scheduled for Txp ID f/y with soft tissue abd US on 07/25. LVUS 07/23: Patent hepatic vasculature with appropriately directed flow. Improved main hep arterial velocity since the prior. Stable heterogenous liver transplant parenchyma, likely related to infarct. Stable peritransplant collection US soft tissue abd 07/24: Right abdominal wall heterogeneous collection, similar to CT 07/08/2023, possibly representing remote hematoma. 07/26 s/p image guided drainage right abdominal wall fluid collection, culture growing rare VRE LFTs stable Plan: -CMP qAM - right/lateral side of incision drained on 07/26, follow-up cultures -Wound care for right open part of incision--> aquacel dressing to be changed once daily -ID following, appreciate recs. Continue dapto/zosyn today and discuss final plan for oral antibiotics with ID tomorrow -Continue ppx acyclovir, bactrim, PPI Last Assessment & Plan: Assessment: prograf 4mg BID myfortic 360mg BID prograf level is pending Plan: no changes in immunosuppression monitor prograf levels daily Last Assessment & Plan: Assessment: Flow Cytometry T and B Cell crossmatches negative Donor Specific Antibody detected to B44. Current IS: FK 5 mg BID FK level: 13 Plan: -hold dose of tacrolimus tonight and start 4/4 tomorrow -Daily FK level -Myfortic on hold d/t Covid Acute postoperative pain 06/02/2023 Overview (07/30/2023): Last Assessment & Plan: Assessment: - Current pain regimen: - Tylenol 500 mg oral q6h PRN - Oxycodone 5 mg q6h prn Plan: - continue current pain medications Postprocedural respiratory failure 06/02/2023 Overview (07/30/2023): Last Assessment & Plan: Assessment: Arrived to SICU intubated post OLT 06/02. Back to OR 06/03 for continuous AMELIE drain output, hemodynamically unstable. 06/07: Extubated 06/09: 2L NC Plan: - BPH, OOB - Albuterol prn - Wean oxygen as able Irritant contact dermatitis 05/31/2023 Hypervolemia 05/27/2023 Adjustment disorder with mixed anxiety and depre ssed mood 05/25/2023 Overview (07/30/2023): Last Assessment & Plan: Assessment: - Patient has a hx of adjustment disorder with mixed anxiety and depression. - Home med: duloxetine - Txp Psych was consulted and diagnosed the patient with multifactorial encephalopathy. There were additional concerns for paranoia. Recommendations included Abilify 5 mg TID prn and Precedex for sleep if hemodynamically tolerable. - Patient was started on Quetiapine and Remeron at bedtime. Home med Duloxetine was resumed. - Duloxetine and Quetiapine discontinued and patient was started on Abilify 2 mg TID prn per Txp Psych. - On 06/12 Txp Psych recommended scheduled Abilify 2 mg TID for agitation/anxiety and to continue Abilify 2 mg TID prn for breakthrough agitation/anxiety. - CT abd, pelvis w/o IV contrast 06/13: heterogeneous low-attenuation in the transplant liver right hepatic dome and lateral left lobe, likely related to areas of hepatic infarction. Peritransplant high attenuation fluid/blood produces as described, similar to recent ultrasounds. Poorly organized 10.4 x 3.9 x 6.7 cm RUQ SQ shantelle-incisional fluid. No internal gas. - CT of chest w/o IV contrast 06/13: Extensive atelectasis with near complete collapse/volume loss of the right middle and lower lobes. Subsegmental atelectases in the lingula and left lower lobe. Interval resolution of previously seen bilateral upper lobe ground glass opacities. Trace right pleural effusion. No thoracic lymphadenopathy. - CT brain 06/16 negative for acute process Plan: - Continue to monitor patient for sxs - Continue scheduled Abilify 2 mg TID and Abilify 2 mg TID prn for breakthrough anxiety/agitation. Also on Remeron 7.5 mg qhs - Txp Psych is following, recommendations appreciated - BC 06/13-NTD Metabolic acidosis 05/25/2023 Overview (07/30/2023): Last Assessment & Plan: Resolved Liver disease 05/24/2023 Overview (07/30/2023): Last Assessment & Plan: Assessment: CT abdomen 07/08-small to moderate bilateral pleural effusions with right lower lobe consolidative airspace opacities and mild atelectasis/infiltrate. diffusely fatty and mildly heterogeneous transplant liver, small right posterior subcapsular fluid and mild perihepatic ascites, diffuse subcutaneous emphysema along the midline abdominal wall incision extending to the 2.5cm right mid anterolateral abdominal wall subcutaneous air fluid collection medial to the skin angie, 7.8 X 2.4 X 5.5 CM right mid lateral abdominal wall fluid collection. diffuse soft tissue anasarca of the abdomen and pelvic side caballero Plan: infectious disease on consult, appreciate recommendations wound care for open portion of incision no further surgical intervention at this time Adjustment disorder with anxious mood 05/23/2023 Alcohol use disorder, severe, in early remission 05/23/2023 Eruption 05/22/2023 Hepatorenal syndrome 05/22/2023 Pruritus 05/22/2023 Pulmonary hypertension 05/22/2023 Overview (07/30/2023): Last Assessment & Plan: Assessment: - 05/15/23 ECHO: estimated right ventricular systolic pressure of 48 mmHg consistent with mild pulmonary hypertension. - 05/24/23 Stress ECHO Dobutamine: major resting echocardiographic findings were comparable to 05/15/23 ECHO - ECHO on 06/12/23: RVSP unable to be measured. Consider repeat ECHO as an outpatient Plan: - Continue to monitor Body mass index 40+ - severely obese 05/18/2023 Heart failure with normal ejection fraction 09/2022 Overview (07/30/2023): Last Assessment & Plan: Assessment: Patient with HFpEF noted in problem list, on metoprolol and valsartan FIELD MANAGER ECHO 05/24/23: CONCLUSIONS: - Technically difficult exam due to suboptimal positioning. - Exam indication: Pre-op for liver transplant - The dobutamine stress echo was negative for ischemia at 86 % of MPHR. - The left ventricle is normal in size. Left ventricular systolic function is normal. EF = 70 5% (2D biplane) Definity contrast used for endocardial border detection. - The right ventricle is normal in size. Right ventricular systolic function is normal. - The left atrial cavity is dilated. - Exam was compared with the prior CC echocardiographic exam performed on 05/15/2023. On direct comparison, the major resting echocardiographic findings are comparable. ECHO 06/12/23 Left ventricular systolic function is normal. EF = 63 5% (2D 4-ch.) Left ventricular diastolic function was not evaluated. - The right ventricle is normal in size. Right ventricular systolic function is normal. Plan: -Continue to monitor Skin cancer screening 05/18/2023 Morbid obesity 05/16/2023 Dysphagia 05/15/2023 Malnutrition of moderate degree 05/15/2023 Overview (07/30/2023): Last Assessment & Plan: Assessment: alcohol cirrhosis s/p OLT. Plan: - Nutrition on board - Advance Tube feeds Acute nontraumatic kidney injury 05/11/2023 Overview (12/21/2023): Last Assessment & Plan: Assessment: - Baseline Cr 0.5-1.0 - On admission, Cr was 2.43. - US on 05/15 showed no hydronephrosis - On 05/26, the patient was started on CRRT. - On 06/09, the patient received 100 mg IV lasix and 50 g albumin - Hannon catheter was removed on 06/09 - Patient was on CVVHD following liver txp. CVVHD was discontinued and iHD was attempted. The patient failed to tolerate iHD d/t hypotension on 06/09. Per Nephrology, iHD will be attempted again with administration of midodrine 10 mg prn. - Patient tolerated iHD on 06/11 and remains on iHD. - Patient is currently not making much urine Plan: - Nephrology is following, appreciate recommendations and dialysis management -IHD Sunday, Sunday and Sunday - Midodrine 10 mg prn with dialysis per Nephrology recs - Continue Midodrine 5 mg TID - Daily CMP to continue monitoring electrolytes - Continue to monitor I/Os Last Assessment & Plan: Assessment: Baseline creatinine 0.5-1.0. Patient arrived to hospital with Cr 2.43. - 05/15 US kidney showed no hydronephrosis - Started on CRRT 05/26 - Did not tolerate iHD on 06/08 or 06/09 Plan: - Listed for PIRRT vs iHD per nephrology - Nephrology on board - Monitor electrolytes - Midodrine with dialysis per nephrology December SNOMED Diagnostic import Blood coagulation disorder 05/11/2023 Cirrhosis of liver 05/11/2023 Hyperammonemia 05/11/2023 Hypoproteinemia 05/11/2023 Thrombocytopenia 05/11/2023 Chronic anemia 10/21/2018 Weakness 01/04/2018 Obstructive sleep apnea syndrome 01/04/2018 Overview (07/30/2023): Last Assessment & Plan: Assessment: Patient with hx of REGINALD, reportedly no CPAP at home on room air Plan: -monitor respiratory status -See resp insufficiency Type 2 diabetes mellitus 01/04/2018 Overview (07/30/2023): Last Assessment & Plan: Assessment: - Home meds: Metformin and Novolog 7 units TID with meals. - 05/14 A1C was 4.3% Plan: - Continue to hold home meds - endocrinology consulted, signed off on 06/16/23 - hold SSI and monitor AM BS level (06/22) Essential hypertension 11/29/2017 Tachycardia 11/29/2017 Immunizations Immunization Administration Dates Next Due Pfizer SARS-CoV-2 Vaccination (Bivalent) Pfizer SARS-CoV-2 Vaccination (Vivar Cap) 021 Social History Tobacco Use Types Packs/Day Years Used Date Smoking Tobacco: Former Cigarettes Smokeless Tobacco: Never Tobacco Cessation:Counseling Given: Not Answered Alcohol Use Standard Drinks/Week Comments Not Currently 0 (1 standard drink = 0.6 oz pur e alcohol) Comments Unknown Sex and Gender Information Value Date Recorded Sex Assigned at Not on file Legal Sex Female 11:03 AM EDT Gender Identity Not on file Sexual Orientation Not on file Last Filed Vital Signs Vital Sign Reading Time Taken Comments Blood Pressure 118/76 08/16/2023 8:00 AM EST Pulse 119 08/16/2023 8:00 AM EST Temperature 35.9 C (96.6 F) 08/16/2023 8:00 AM EST Respiratory Rate 16 08/16/2023 8:00 AM EST Oxygen Saturation 100% 08/16/2023 8:00 AM EST Inhaled Oxygen Concentration - - Weight 91.1 kg (200 lb 14.4 oz) 08/16/2023 4:00 AM EST Height 165.1 cm (5' 5 ) 08/01/2023 11:4 9 AM EST Body Mass Index 33.43 08/01/2023 11:49 AM EST Plan of Treatment Health Maintenance Due Date Last Done Comments CT Colonography 1979 Colonoscopy 1979 Colorectal Cancer Screening 1979 FIT-DNA (Cologuard) 1979 FIT 1979 FOBT 1979 HPV/PAP 1979 Hemoglobin A1C 1979 Sigmoidoscopy 1979 Annual Visit Topic 11/27/1980 MMR Vaccines (1 of 1 - Standard series) 11/27/1980 Ophthalmology Exam 11/27/1989 Urine Microalbumin 11/27/1989 Hepatitis A Vaccines (1 of 2 - Risk 2-dose series) 11/27/1998 Hepatitis B Vaccines (1 of 3 - 19+ 3-dose series) 11/27/1998 08/13/2023, 07/05/2023 Pap Smear 11/27/2000 Cervical Cancer Screening 11/27/2009 HPV/Cotest 11/27/2009 HPV 11/27/2009 Mammogram 2019 DTaP/Tdap/Td Vaccines (3 - T d or Tdap) 05/19/2033 05/19/2023, 11/19/2013 Hepatitis C Screening Completed 07/05/2023 HIB Vaccines Aged Out No longer eligi ble based on patient's age to complete this topic HPV Vaccines Aged Out No longer eligi ble based on patient's age to complete this topic IPV Vaccines Aged Out No longer eligi ble based on patient's age to complete this topic Meningococcal Vaccine Aged Out No kathia jarod eligible based on patient's age to complete this topic Pneumococcal Vaccine: Pediatrics (0 to 5 years) and At-Risk Patients (6 to 64 Years) Aged Out No longer eligible b ased on patient's age to complete this topic Procedures Procedure Name Priority Date/Time Associated Diagnosis Comments HEPATITIS B CORE ANTIBODY, IGM Routine 08/13/2023 5:40 AM EST HEPATITIS C RNA, QUANTITATIVE, PCR Routine 07/05/2023 5:50 AM EDT from Last 3 Months or Most Recently Relevant to Health Maintenance Results * Hepatitis B core antibody, IgM (08/13/2023 5:40 AM EST) Hep B C IgM Interp Negative Negative 08/13/2023 5:09 PM EST [facility] Comment:No evidence of recen t infection with Hepatitis B virus. Should recent infection be suspected, repeat testing may be considered 3-4 weeks after this draw. Blood (Blood, Venous) 08/13/2023 5:40 AM EST 08/13/2023 1:18 PM EST [facility] BLOOD ORDERABLES Final R esult Performing Organization Address [facility] Co de Phone Number [facility] [employer] [address] [place] [address] [facility] [address] [address] * HEPATITIS C RNA, QUANTITATIVE, PCR (07/05/2023 5:50 AM EDT) HCV RNA Quant by PCR, interp HCV RNA not detected by PCR. HCV RNA not detected by PCR. 07/06/2023 5:29 AM EDT [facility] Blood (Blood, Venous) 07/05/2023 5:50 AM EDT 07/05/2023 5:32 PM EDT [facility] BLOOD ORDERABLES Final R esult Performing Organization Address City/[facility] Co de Phone Number [facility] [employer] [address] [place] [address] [facility] [address] [place] [phone] from Last 3 Months or Most Recently Relevant to Health Maintenance Advance Directives * Full Resuscitation (Latest Code Status on File) Date Activated Date Inactivated Comments 07/31/2023 5:24 PM 08/16/2023 11:08 AM Will asse ss at admit. Full code in hospital. Question Answer Comments I have discussed this order with the patient or his/her surrogate and have received informed consent. Yes * Full Resuscitation Date Activated Date Inactivated Comments 07/12/2023 6:45 PM 07/23/2023 4:33 AM Question Answer Comments I have discussed this order with the patient or his/her surrogate and have received informed consent. Yes * Full Resuscitation Date Activated Date Inactivated Comments 06/30/2023 2:45 PM 07/08/2023 10:43 PM Question Answer Comments I have discussed this order with the patient or his/her surrogate and have received informed consent. Yes
--- OUTSIDE RECORDS SUMMARY | 2025-04-09 23:32 | XMS_ITS | Encounter Summary ---
Author Organization [facility] Address [facility] [place] [address] Care Team Providers Care Him Coder Name Role Phone ChaoAfshin Primary Care Provider [phone] Teddy Diehl RN Unavailable Unavailable Kimberly Madrigal RN Unavailable Unavailable Source Comments In the event this information is protected by the Federal Confidentiality of Alcohol and Drug AbusePatient Records regulations: The Federal rules restrict any use of the information to criminally investigate or prosecute any alcohol or drug abuse patient.[facility] Encounter Details Date Type Department Care Team (Late st Contact Info) Description 09/16/2024 Patient Msg Angio [address] [id number] Provider, Ccf Instructions for Sanjuanita removal scheduled on Sunday09/23/23 Social History Tobacco Use Types Packs/Day Years Used Date Smoking Tobacco: Former Cigarettes Smokeless Tobacco: Never Alcohol Use Standard Drinks/Week Comments Not Currently 0 (1 standard drink = 0.6 oz pur e alcohol) [facility] Utilities Answer Date Recorded In the past 12 months has e electric, gas, oil, or water company threatened [...] any time in the past 12 m [facility], were you homeless or living in a group home (including now)? No 08/11/2024 Area Deprivation Index Answer Date Justin rded National Score (1-100), lower number is lower [place] 88 05/17/2023 State Score (1-10), lower number is lower risk 8 05/17/2023 Data from: https://www.neighborhoodatlas.medicine.[facility].edu/. Last address used for calculation [address] [facility] 05/17/2023 Comments No Sex and Gender [...] Assessment Author No 08/12/2024 4:29 PM Sylwia Espinoza, MINAL * Do you have serious difficulty walking [...] AM EDT Office Visit Transplant Center [address] [address] Clinic, Kidney Txp [address] [place] [employer], [place] [id number] Kid Txp - follow up appointment in Transplant clinic on 05/06/2025 documented as of this encounter Visit Diagnoses Not on filedocumented in this encounter Care Teams Him Coder Relationship Specialty Start Date End Date Afshin Chao [address] [place] [address] PCP - General Family Medicine 05/14/23 Teddy Diehl, RN Registered Nurse Transplant Center 06/29/23 Kimberly Madrigal, RN Registered Nurse Transplant Center 03/12/25 YAIR Muniz [facility] Community Resource 06/07/23 documented as of this encounter
--- OUTSIDE RECORDS SUMMARY | 2025-04-09 23:32 | XMS_ITS | Encounter Summary ---
Author Organization [facility] Address [address] [place] [address] Care Team Providers Care Fur Blower Operator Name Role Phone arron Afshin Gavin Primary Care Provider [phone] [phone] Teddy Diehl RN Unavailable Unavailable Kimberly Madrigal RN Unavailable Unavailable Source Comments In the event this information is protected by the Federal Confidentiality of Alcohol and Drug AbusePatient Records regulations: The Federal rules restrict any use of the information to criminally investigate or prosecute any alcohol or drug abuse patient.[facility] Encounter Details Date Type Department Care Team (Late st Contact Info) Description 07/22/2023 Lab Requisition [facility] [address] [place] [address] Maura Cohen MD [address] [facility] [address] [place] [address] Social History Tobacco Use Types Packs/Day Years Used Date Smoking Tobacco: Former Cigarettes Smokeless Tobacco: Never Alcohol Use Standard Drinks/Week Comments Not Currently 0 (1 standard drink = 0.6 oz pur e alcohol) Area Deprivation Index Answer Date Justin rded National Score (1-100), lower number is lower [place] [address] 05/17/2023 State Score (1-10), lower number is lower risk 8 05/17/2023 Data from: https://www.neighborhoodatlas.medicine.[facility].edu/. Last address used for calculation [address] 05/17/2023 Comments No Sex and Gender Information Value Date Recorded Sex Assigned at Not on file Legal Sex Female 2:40 AM EDT Gender Identity Not on file Sexual Orientation Not on file documented as of this encounter Plan of Treatment Upcoming Encounters Date Type Department Care Team (Late st Contact Info) Description 05/06/2025 11:00 AM EDT Office Visit Transplant Center [address] [address] Clinic, Kidney Txp [address] [place], [place] [id number] Kid Txp - follow up appointment in Transplant clinic on 05/06/2025 documented as of this encounter Procedures Procedure Name Priority Date/Time Associated Diagnosis Comments PROCALCITONIN STAT 07/22/2023 7:52 AM EST RENAL FUNC PANL STAT 07/22/2023 7:52 AM EST HEP FUNC PANL STAT 07/22/2023 7:52 AM EST CBC + DIFF STAT 07/22/2023 7:52 AM EST URINALYSIS AUTO WO SCPE STAT 07/22/2023 12:59 AM EDT BACTERIAL CULTURE, URINE STAT 07/22/2023 12:59 AM EDT documented in this encounter Results * (ABNORMAL) CBC + DIFF (07/22/2023 7:52 AM EST) WBC 8.29 3.70 - 11.00 k/uL 07/22/2023 9:58 AM EST [facility] RBC 3.18(L) 3.90 - 5.20 m/uL 07/22/2023 9:58 AM EST [facility] Hemoglobin 10.1(L) 11.5 - 15.5 g/dL 07/22/2023 9:58 AM [facility] Hematocrit 31.6(L) 36.0 - 46.0 % 07/22/2023 9:58 AM [facility] MCV 99.4 80.0 - 100.0 fL 07/22/2023 9:58 AM [facility] MCH 31.8 26.0 - 34.0 pg 07/22/2023 9:58 AM [facility] MCHC 32.0 30.5 - 36.0 g/dL 07/22/2023 9:58 AM [facility] RDW-CV 19.6(H) 11.5 - 15.0 % 07/22/2023 9:58 AM [facility] Platelet Count 162 150 - 400 k/uL 07/22/2023 9:58 AM [facility] MPV 10.2 9.0 - 12.7 fL 07/22/2023 9:58 AM [facility] Neutrophils % 52.8 % 07/22/2023 9:58 AM [facility] Abs Neut 4.38 1.45 - 7.50 k/uL 07/22/2023 9:58 AM [facility] Lymphocytes % 18.0 % 07/22/2023 9:58 AM [facility] Abs Lymph 1.49 1.00 - 4.00 k/uL 07/22/2023 9:58 AM [facility] Monocytes % 19.3 % 07/22/2023 9:58 AM [facility] Abs Limestone 1.60(H) <0.87 k/uL 07/22/2023 9:58 AM [facility] Eosinophils % 7.2 % 07/22/2023 9:58 AM [facility] Abs Eosin 0.60(H) <0.46 k/uL 07/22/2023 9:58 AM [facility] Basophils % 1.6 % 07/22/2023 9:58 AM [facility] Abs Baso 0.13(H) <0.11 k/uL 07/22/2023 9:58 AM [facility] Immature Granulocytes % 1.1 % 07/22/2023 9:58 AM [facility] Abs Immature Gran 0.09 <0.10 k/uL 07/22/2023 9:58 AM [facility] NRBC 0.0 /100 WBC 07/22/2023 9:58 AM [facility] Absolute nRBC <0.01 <0.01 k/uL 07/22/2023 9:58 AM [facility] Diff Type Auto 07/22/2023 9:58 AM [facility] Blood BLOOD SPECIMEN / Unknown Venipuncture / Unknown 07/22/2023 7:52 AM EST 07/22/2023 9:52 AM EST us Wagner Crews MD LABORATORY Final Result Performing Organization Address City/[facility]/ZIP Co de Phone Number [facility] [address] [facility] [place] [address], [place] * (ABNORMAL) HEPATIC FUNCTION PNL (07/22/2023 7:52 AM EST) Albumin 2.8(L) 3.9 - 4.9 g/dL 07/22/2023 10:11 AM [facility] Bilirubin, Total 0.7 0.2 - 1.3 mg/dL 07/22/2023 10:11 AM [facility] Bilirubin, Direct 0.4(H) <0.2 mg/dL 07/22/2023 10:11 AM [facility] Alkaline Phosphatase 240(H) 34 - 123 U/L 07/22/2023 10:11 AM [facility] AST 29 13 - 35 U/L 07/22/2023 10:11 AM [facility] ALT 8 7 - 38 U/L 07/22/2023 10:11 AM [facility] Protein, Total 6.0(L) 6.3 - 8.0 g/dL 07/22/2023 10:11 AM [facility] Blood BLOOD SPECIMEN / Unknown 07/22/2023 7:52 AM EST 07/22/2023 9:52 AM EST us Wagner Crews MD LABORATORY Final Result [facility] [address] [facility] [place] [address], [place] * (ABNORMAL) PROCALCITONIN (LAB) (07/22/2023 7:52 AM EST) Procalcitonin 1.42(H) <0.09 ng/mL 07/22/2023 10:24 AM EST [facility] Comment:For a guided interpr etation of test results, please visit the Change in Procalcitonin Calculator, [email or web address]. Blood BLOOD SPECIMEN / Unknown 07/22/2023 7:52 AM EST 07/22/2023 9:52 AM EST us Wagner Crews MD LABORATORY Final Result Performing Organization Address [facility]/ZIP Co de Phone Number [facility] [address] [facility] [place] [address], [place] * (ABNORMAL) RENAL FUNCTION PANEL (07/22/2023 7:52 AM EST) Albumin 2.8(L) 3.9 - 4.9 g/dL 07/22/2023 10:11 AM [facility] Calcium, Total 8.5 8.5 - 10.2 mg/dL 07/22/2023 10:11 AM [facility] Phosphorus 2.2(L) 2.7 - 4.8 mg/dL 07/22/2023 10:11 AM [facility] Glucose 101(H) 74 - 99 mg/dL 07/22/2023 10:11 AM [facility] Comment: The [place] Diabetes Association (ADA) provides guidance for cutoff values for fasting glucose and random glucose. The ADA defines fasting as no caloric intake for at least 8 hours. Fasting plasma glucose results between 100 to 125 mg/dL indicate increased risk for diabetes (prediabetes). Fasting plasma glucose results greater than or equal to 126 mg/dL meet the criteria for diagnosis of diabetes. In the absence of unequivocal hyperglycemia, results should be confirmed by repeat testing. In a patient with classic symptoms of hyperglycemia or hyperglycemic crisis, random plasma glucose results greater than or equal to 200 mg/dL meet the criteria for diagnosis of diabetes. Reference: Standards of Medical Care in Diabetes 2016, [place] Diabetes Association. Diabetes Care. 2016.39(Suppl 1). BUN 12 7 - 21 mg/dL 07/22/2023 10:11 AM [facility] Creatinine 3.58(H) 0.58 - 0.96 mg/dL 07/22/2023 10:11 AM [facility] Sodium 136 136 - 144 mmol/L 07/22/2023 10:11 AM [facility] Potassium 3.7 3.7 - 5.1 mmol/L 07/22/2023 10:11 AM [facility] Chloride 98 97 - 105 mmol/L 07/22/2023 10:11 AM [facility] CO2 25 22 - 30 mmol/L 07/22/2023 10:11 AM [facility] Anion Gap 13 9 - 18 mmol/L 07/22/2023 10:11 AM [facility] Estimated Glomerular Filtration Rate 16(L) >=60 mL/min/1. 73m 07/22/2023 10:11 AM [facility] Comment:Estimated Glomerular Filtration Rate (eGFR) is calculated using the 2020 CKD-EPI creatinine equation. This equation utilizes serum creatinine, sex, and age as parameters. The creatinine assay has traceable calibration to isotope dilution- mass spectrometry. Refer to KDIGO guidelines for clinical interpretation. In patients with unstable renal function, e.g. those with acute kidney injury, the eGFR may not accurately reflect actual GFR. Blood BLOOD SPECIMEN / Unknown 07/22/2023 7:52 AM EST 07/22/2023 9:52 AM EST us Wagner Crews MD LABORATORY Final Result [facility] [address] [facility] [place] [address], [place] * (ABNORMAL) URINE CULTURE (07/22/2023 12:59 AM EDT) Culture, Urine >=100,000 CFU/ml Yeast(A) 07/31/2023 11:14 AM EST [facility] Comment: ITS2 and D2 sequencing identified this yeast as most closely related to the genus Groenewaldozyma tartarivorans (previously known as Lacie tartarivorans). It is considered to be an environmental yeast and is not typically described as an agent of h uman disease. Culture, Urine 50,000-<1 00,000 CFU/ml Yeast(A) 07/31/2023 11:14 AM EST [facility] Comment: ITS2 and D2 sequencing identified this yeast as most closely related to the genus Groenewaldozyma tartarivorans (previously known as Lacie tartarivorans). It is considered to be an environmental yeast and is not typically described as an agent of h uman disease. Morphology 2 Urine Random URINE SPECIMEN / Unknown 07/22/2023 12:59 AM EDT 07/22/2023 4:59 AM EST Narrative [facility] - 07/31/2023 11:14 AM EST No susceptibility testing done. This test was developed and its performance characteristics determined by the [facility] [place] ([facility]). It has not been cleared or approved by the FDA. [facility] is regulated under CLIA as qualified to perform high-complexity testing. This test is used for clinical purposes. It should not be regarded as investigational or for research. Maura Cohen MD MICROBIOLOGY Final Result [facility] [address] [place] [address], [place] * (ABNORMAL) URINALYSIS, DIPSTICK ONLY (07/22/2023 12:59 AM EDT) Color Mcintosh(A) Yellow 07/22/2023 5:20 AM EST [facility] Clarity Turbid(A) Clear 07/22/2023 5:20 AM EST [facility] Glucose, Urine Negative Trace, Negative 07/22/2023 5:20 AM [facility] Bilirubin, Urine Negative Negative 07/22/20 5:20 AM [facility] Ketones, Urine Negative Negative, Trace 07/22/2023 5:20 AM [facility] Specific Donnellson, Ur 1.027 1.005 - 1.030 07/22/2023 5:20 AM EST [facility] Hemoglobin/Blood ,Ur 1+(A) Negative, Trace 07/22/2023 5:20 AM EST [facility] pH, Urine 5.5 5.0 - 8.0 07/22/2023 5:20 AM EST [facility] Protein, Urine 2+(A) Trace, Negative 07/22/2023 5:20 AM EST [facility] Urobilinogen Negative Negative 07/22/2023 5:20 AM EST [facility] Nitrites Negative Negative 07/22/2023 5:20 AM EST [facility] Leuk Esterase 250 Leonor/uL(A) Negative, 25 Leonor/uL 07/22/2023 5:20 AM EST [facility] Urine Random URINE SPECIMEN / Unknown 07/22/2023 12:59 AM EDT 07/22/2023 4:59 AM EST us Maura Cohen MD LABORATORY Final Result Performing Organization Address City/State/[facility] Co de Phone Number [facility] [address] documented in this encounter Visit Diagnoses Not on filedocumented in this encounter Additional Health Concerns Infection Onset Date Last Indicated Resolved Time COVID-19 Rule-Out 07/23/2023 07/23/2023 07/23/2023 2:25 AM EST Respiratory Rule-Out 07/23/2023 07/23/2023 023 2:25 AM EST COVID-19 Confirmed 07/23/2023 07/23/2023 3 8:51 PM EST documented as of this encounter Care Teams Fur Blower Operator Relationship Specialty Start Date End Date Afshin Chao [address] [place] [address] PCP - General Family Medicine 05/14/23 Teddy Diehl, RN Registered Nurse Transplant Center 06/29/23 Kimberly Madrigal, RN Registered Nurse Transplant Center 03/12/25 YAIR Muniz [facility] Community Resource 06/07/23 documented as of this encounter
--- OUTSIDE RECORDS SUMMARY | 2025-04-09 23:32 | XMS_ITS | Encounter Summary ---
Author Organization [facility] Address [address] [place] [address] Care Team Providers Care Eeo Officer Name Role Phone Chao Afshin Ugarte Primary Care Provider [phone] Teddy Diehl RN Unavailable Unavailable Kimberly Madrigal RN Unavailable Unavailable Source Comments In the event this information is protected by the Federal Confidentiality of Alcohol and Drug AbusePatient Records regulations: The Federal rules restrict any use of the information to criminally investigate or prosecute any alcohol or drug abuse patient.[facility] Encounter Details Date Type Department Care Team (Late st Contact Info) Description 09/15/2024 Patient Msg Infectious Disease [address] [id number] Provider, Ccf central line removal Social History Tobacco Use Types Packs/Day Years Used Date Smoking Tobacco: Former Cigarettes Smokeless Tobacco: Never Alcohol Use Standard Drinks/Week Comments Not Currently 0 (1 standard drink = 0.6 oz pur e alcohol) [facility] Utilities Answer Date Recorded In the [...] any time in the past 12 m [facility], were you homeless or living in a longterm (including now)? No 08/11/2024 Area Deprivation Index Answer Date Justin rded National Score (1-100), lower number is lower [place] 88 05/17/2023 State Score (1-10), lower number is lower risk 8 05/17/2023 Data from: https://www.neighborhoodatlas.medicine.[facility].edu/. Last address used for calculation [address] [facility] 05/17/2023 Comments No Sex and [...] AM EDT Office Visit Transplant Center [address] [address] Clinic, Kidney Txp [address] [place], [place] [id number] Kid Txp - follow up appointment in Transplant clinic on 05/06/2025 documented as of this encounter Visit Diagnoses Not on filedocumented in this encounter Care Teams Eeo Officer Relationship Specialty Start Date End Date Afshin Chao [address] [place] [address] PCP - General Family Medicine 05/14/23 Teddy Diehl, RN Registered Nurse Transplant Center 06/29/23 Kimberly Madrigal, RN Registered Nurse Transplant Center 03/12/[address] [facility] Community Resource 06/07/23 documented as of this encounter
--- OUTSIDE RECORDS SUMMARY | 2025-04-09 23:32 | XMS_ITS ---
Author Organization [facility] Address [address] [place], [place] [id number] Care Team Providers Care Button Reclaimer Name Role Phone Afshin Chao Primary Care Provider [phone] [phone] Teddy Diehl RN Unavailable Unavailable Kimberly Madrigal RN Unavailable Unavailable Transplant Episode Kidney Recipient [facility] ([place], [place]) [facility] Organ Received: Left Kidney Transplanted on 07/24/2024 Marked as Active Follow-up on 07/24/2024 Kidney CoordinatorKimberly Madrigal RN Phone: N/A Fax: N/A Email: N/A [place] Organ Diagnosis Organ Primary Contributory Kidney Hepatorenal Syndrome Infection History Noted Survival Infection Treatment Organism Resolved 08/08/2024 15 days Staph aureus infection Donor Information Organ ABO Source Meets Risk Criteria HLA Match Mismatches Cross Match Left Kidney Transplanted O DBD No A: B: DR: Left Kidney Donor Serology Results Anti-CMV CMV IgG: Negative EBV IgG EBV VCA IgG: Negative Anti-HBcAb HBC Total: Negative HBsAg HBsAg: Negative HBV DNA No results on file Anti-HCV HCV: Negative Anti-HIV I/II HIV-1: Negative HIV Ag/Ab Combo Assay: Not Done Anti-HTLV I/II HTLV: Not Done RPR/VDRL RPR: Negative EBV IgM EBV VCA IgM: Negative HBsAb HBsAb: Not Done EBNA No results on file Toxoplasma Toxoplasma IgG: Positive Quantiferon TB No results on file HSV 1 No results on file HSV 2 No results on file Care Team Name Role Phone Fax Email Kimberly Madrigal RN Kidney Coordinator N/A N/A N/A Wenceslao Sabillon MD Referring [phone] N/A Events Post-Transplant Pre-Transplant Admitted: 07/24/2024 Referred: 10/15/2023 Transplanted: 07/24/2024 Evaluation began: 4 Discharged: 07/28/2024 Committee: 02/01/2024 UNOS qualified: 09/18/2023 Center waitlisted: 4 Appointments (03/10/2025 - 05/10/2025) When With Visit Type Description 05/06/2025 [facility] [place] - Clinic, K Office Vst Kid Txp - follow up appointment in Transplant clinic on 05/06/2025 Dialysis History Dialysis History Start End Type Comments Center 09/18/2023 07/24/2024 In-center Hemodialysis t,th,sa [facility] Dialysis [facility] Information Center Phone Fax Address [facility] [phone] [address] [place] [address]
--- OUTSIDE RECORDS SUMMARY | 2025-04-09 23:32 | XMS_ITS | Encounter Summary ---
Author Organization [facility] Address [address] [place] [address] Care Team Providers Care Algorithm Design Engineer Name Role Phone arron Afshin Gavin Primary Care Provider [phone] Teddy Diehl RN Unavailable Unavailable Kimberly Madrigal RN Unavailable Unavailable Source Comments In the event this information is protected by the Federal Confidentiality of Alcohol and Drug AbusePatient Records regulations: The Federal rules restrict any use of the information to criminally investigate or prosecute any alcohol or drug abuse patient.[facility] Encounter Details Date Type Department Care Team (Late st Contact Info) Description 02/24/2025 Results Follow-Up Transplant Center [address] [place] [address] Dianne Naidu, MINAL Social History Tobacco Use Types Packs/Day Years Used Date Smoking Tobacco: Former Cigarettes Smokeless Tobacco: Never Alcohol Use Standard Drinks/Week Comments Not Currently 0 (1 standard drink = 0.6 oz pur e alcohol) [facility] Utilities Answer Date Recorded In the [...] any time in the past 12 m [facility], were you homeless or living in a long term (including now)? No 08/11/2024 Area Deprivation Index Answer Date Justin rded National Score (1-100), lower number is lower [place] 88 05/17/2023 State Score (1-10), lower number is lower risk 8 05/17/2023 Data from: https://www.neighborhoodatlas.medicine.[facility].edu/. Last address used for calculation [address] [facility] 05/17/2023 Comments No Sex and Gender [...] AM EDT Office Visit Transplant Center [address] [address] Clinic, Kidney Txp [address] [place], [place] [phone] Kid Txp - follow up appointment in Transplant clinic on 05/06/2025 documented as of this encounter Visit Diagnoses Not on filedocumented in this encounter Care Teams Algorithm Design Engineer Relationship Specialty Start Date End Date Afshin Chao [address] [place] [address] PCP - General Family Medicine 05/14/23 Teddy Diehl, RN Registered Nurse Transplant Center 06/29/23 Kimberly Madrigal, RN Registered Nurse Transplant Center 03/12/25 YAIR [place] Community Resource 06/07/23 documented as of this encounter
--- OUTSIDE RECORDS SUMMARY | 2025-04-09 23:32 | XMS_ITS | Encounter Summary ---
Author Organization [facility] Address [address] [place] [address] Care Team Providers Care Bakery Machine Mechanic Supervisor Name Role Phone Afshin Chao Primary Care Provider [phone] Teddy Diehl RN Unavailable Unavailable Kimberly Madrigal RN Unavailable Unavailable Source Comments In the event this information is protected by the Federal Confidentiality of Alcohol and Drug AbusePatient Records regulations: The Federal rules restrict any use of the information to criminally investigate or prosecute any alcohol or drug abuse patient.[facility] Encounter Details Date Type Department Care Team (Late st Contact Info) Description 12/01/2024 Patient Msg Transplant Center [address] [place] [address] Cassia Garrido, RN KIDNEY NIGHT- JOIN US ON ZOOM Social History Tobacco Use Types Packs/Day Years Used Date Smoking Tobacco: Former Cigarettes Smokeless Tobacco: Never Alcohol Use Standard Drinks/Week Comments Not Currently 0 (1 standard drink = 0.6 oz pur e alcohol) [facility] Utilities Answer Date Recorded In the [...] any time in the past 12 m [facility], were you homeless or living in a fdc (including now)? No 08/11/2024 Area Deprivation Index Answer Date Justin rded National Score (1-100), lower number is lower ri sk 88 05/17/2023 State Score (1-10), lower number is lower risk 8 05/17/2023 Data from: https://www.neighborhoodatlas.medicine.[facility].edu/. Last address used for calculation [address] [facility] 05/17/2023 Comments No Sex and Gender [...] AM EDT Office Visit Transplant Center [address] [address] Clinic, Kidney Txp [address] [place], [place] [phone] Kid Txp - follow up appointment in Transplant clinic on 05/06/2025 documented as of this encounter Visit Diagnoses Not on filedocumented in this encounter Care Teams Bakery Machine Mechanic Supervisor Relationship Specialty Start Date End Date Afshin Chao [address] [place] [address] PCP - General Family Medicine 05/14/23 Teddy Diehl, RN Registered Nurse Transplant Center 06/29/23 Kimberly Madrigal, MINAL Registered Nurse Transplant Center 03/12/25 Y[facility]IR [facility] 06/07/23 documented as of this encounter
--- OUTSIDE RECORDS SUMMARY | 2025-04-09 23:32 | XMS_ITS | Encounter Summary ---
Author Organization [facility] Address [address] [place] [address] Care Team Providers Care Biomedical Equipment Support Specialist Name Role Phone Chao Afshin Torito Primary Care Provider [phone] Teddy Diehl RN Unavailable Unavailable Kimberly Madrigal RN Unavailable Unavailable Source Comments In the event this information is protected by the Federal Confidentiality of Alcohol and Drug AbusePatient Records regulations: The Federal rules restrict any use of the information to criminally investigate or prosecute any alcohol or drug abuse patient.[facility] Encounter Details Date Type Department Care Team (Late st Contact Info) Description 08/25/2024 Patient Msg Endocrinology [address] [place] [phone] Provider, [facility] Approval Girma Social History Tobacco Use Types Packs/Day Years Used Date Smoking Tobacco: Former Cigarettes Smokeless Tobacco: Never Alcohol Use Standard Drinks/Week Comments Not Currently 0 (1 standard drink = 0.6 oz pur e alcohol) [facility] Utilities Answer Date Recorded In the [...] any time in the past 12 m [facility], were you homeless or living in a assisted (including now)? No 08/11/2024 Area Deprivation Index Answer Date Justin rded National Score (1-100), lower number is lower ri sk 88 05/17/2023 State Score (1-10), lower number is lower risk 8 05/17/2023 Data from: https://www.neighborhoodatlas.medicine.[facility].edu/. Last address used for calculation [address] [facility] 05/17/2023 Comments No Sex and Gender [...] AM EDT Office Visit Transplant Center [address] [address] Clinic, Kidney Txp [address] [place], [place] [phone] Kid Txp - follow up appointment in Transplant clinic on 05/06/2025 documented as of this encounter Visit Diagnoses Not on filedocumented in this encounter Care Teams Biomedical Equipment Support Specialist Relationship Specialty Start Date End Date Afshin Chao [address] [place] [address] PCP - General Family Medicine 05/14/23 Teddy Diehl, RN Registered Nurse Transplant Center 06/29/23 Kimberly Madrigal, RN Registered Nurse Transplant Center 03/12/[address] [facility] Community Resource 06/07/23 documented as of this encounter
--- OUTSIDE RECORDS SUMMARY | 2025-04-09 23:32 | XMS_ITS | Encounter Summary ---
Author Organization [employer] Address [id number] [address] [place] [address] Care Team Providers Care Guest Services Representative Name Role Phone Eric Malave MD Primary Care Provider [phone] Reason for Visit * Reason Onset Date Comments Transition Of Care 07/29/2024 Encounter Details Date Type Department Care Team (Late st Contact Info) Description 07/29/2024 Telephone [facility] [address] [place] [id number] Chinyere Stevens, MINAL Transition Of Care Social History Tobacco Use Types Packs/Day Years Used Date Smoking Tobacco: Former Cigarettes Smokeless Tobacco: Never Comments:quit 05/2018 occasio nal cigarette 2 per week Alcohol Use Standard Drinks/Week Comments Not Currently 1 (1 standard drink = 0.6 oz pure alcohol) Last drink December 23 2022 per patient report AUDIT-C Answer Date Recorded Frequency of Alcohol Consumption Monthly or less 12/19/2018 Average Number of Drinks 1 or 2 019 Frequency of Binge Drinking Never 12/2018 PHQ-2 Answer Date Recorded Total Score 14 07/11/2024 Childcare Answer Date Recorded Childcare Unknown 02/24/2019 Employment Answer Date Recorded Employment Unknown 02/24/2019 Hunger Screening Answer Date Recorded Within the past 12 months we worried whether our food would run out before we got money to buy more. Never True 07/11/2024 Within the past 12 months th e food we bought just didn't last and we didn't have money to get more. Never True 07/11/2024 Purpose - Life Answer Date Recorded Purpose and direction in life Unknown Comments No Sex and Gender Information Value Date Recorded Sex Assigned at Female 02/15/2025 1:29 PM EDT Legal Sex Female 11:25 AM EDT Gender Identity Female 02/15/2025 1:29 PM EDT Sexual Orientation Choose not to disclose 2024 1:29 PM EDT documented as of this encounter Miscellaneous Notes * Telephone Encounter - Chinyere Stevens RN - 07/29/2024 8:13 AM EST Transition of Care Additional Questions/Concerns Requiring PCP Follow-Up: EDGAR would need to be prior to 08/08/24. Patient has multiple follow up appts at [facility] with the transplant team. This documentation is being used for Transition of Care purposes: Yes Goal: Patient will demonstrate a safe transition from hospital to home. Diagnosis on Discharge: ESRD- Kidney Transplant Discharge Specialty: Nephrology Name of Discharging Facility: [facility] Date of Facility Discharge: 07/24/24 - 07/28/24 Date of Interactive Contact and Name of Cane Burner: Unable to reach x 2 Medication Review Completed: No Medication Reconciliation Questions/Concerns: Humalog 12 units with meals - hold if meal is skipped Humalog sliding scale as below three times daily If Blood Glucose (mg/dL) is <110 Give 0 units 111-150 Give 0 units 151-200 Give 2 unit 201-250 Give 4 units 251-300 Give 6 units 301-350 Give 8 units 351-400 Give 10 units Check blood sugars Three times a Day predniSONE (DELTASONE) 5 mg tablet Please follow the prednisone taper outlined in your discharge paperwork 200 tablet 3 07/28/2024 ferrous sulfate (IRON) 325 mg (65 mg iron) tablet Take 1 tablet by mouth every other day. 15 bsmsok9107/28/2024 08/27/2024 sulfamethoxazole-trimethoprim (BACTRIM DS) 800-160 mg per tablet Take 1 tablet by mouth every Sunday, Sunday, and Sunday. 12 tablet 2 07/30/2024 10/28/2024 mycophenolate mofetil (CELLCEPT) 250 mg capsule Take 3 capsules by mouth two times a day. 180 capsule 2 07/28/2024 10/26/2024 furosemide (LASIX) 40 mg tablet Take 1 tablet by mouth two times a day. 180 tablet 07/28/2024 10/26/2024 docusate sodium (COLACE) 100 mg capsule Take 1 capsule by mouth two times a day. 60 capsule 07/28/2024 08/27/2024 acyclovir (ZOVIRAX) 400 mg tablet Take 1 tablet by mouth two times a day. 60 tablet 07/28/2024 08/27/2024 tacrolimus IR (PROGRAF) 1 mg capsule Take 8 capsules by mouth two times a day. 480 capsule 2 07/28/2024 10/26/2024 acetaminophen (TYLENOL) 325 mg tablet Take 2 tablets by mouth every 6 hours as needed for pain for up to 14 days. 30 tablet 07/28/2024 08/11/2024 alcohol swabs (ALCOHOL PADS) Apply 120 Each to affected area three times a day. 13247 Each 2 07/28/2024 07/28/2024 Insulin [place], Disposable, (BD ULTRA-FINE YU PEN NEEDLE) 32 gauge x 5/32 Use 100 each three times a day. 9000 Each 2 07/28/2024 07/28/2024 Follow Up Appointments with Providers: Primary: Afshin Gonzalez MD Specialty: Future Appointments Date Time Provider Department Center 07/31/2024 9:00 AM Clinic, Kidney Txp [facility] 07/31/2024 10:00 AM Kellen Negron MD [facility] 08/04/2024 10:40 AM Clinic, Kidney Txp [facility] 08/04/2024 11:20 AM John Crews, [facility] 08/07/2024 8:20 AM Clinic, Kidney Txp [facility] 08/07/2024 8:40 AM Kellen Negron MD [facility] 08/11/2024 9:00 AM Clinic, Kidney Txp [facility] 08/11/2024 9:40 AM Sabrina Galindo, [facility] 08/13/2024 9:20 AM Clinic, Kidney Txp [facility] 08/18/2024 9:00 AM Clinic, Kidney Txp [facility] 08/18/2024 9:20 AM John Crews, RPh [facility] 08/21/2024 8:40 AM Clinic, Kidney Txp [facility] 08/21/2024 9:20 AM Kellen Negron MD [facility] Specialty: FUTURE scheduled with transplant team 12/04/2024 9:30 AM EDT [facility] Transplant Center [address] [address] [facility] 12/05/2024 8:45 AM EDT Office Visit Transplant Center [address] [place] [address] Coordinators, Kidney Txp [address] [place] [address] [facility] 12/05/2024 9:30 AM EDT Office Visit Transplant Center [address] [address] List, Urology Wait [address] [place] [address] [facility] 12/05/2024 10:00 AM EDT Office Visit Transplant Center [address] [place] [address] [facility] 12/05/2024 10:30 AM EDT Office Visit Transplant Center [address] [place] [address] Coordinators, Kidney Txp [address] [place] [address] [facility] 12/05/2024 11:15 AM EDT Social Work Transplant Center [address] [address] Mary Alice Garrido LISW [address] [place] [address] [facility] 12/05/2024 12:15 PM EDT Results Only Cardiology [address] [place] [address] [facility] 12/05/2024 12:40 PM EDT Appointment Radiology [address] [place] [address] [facility] 12/05/2024 1:00 PM EDT Results Only [place] [facility] [address] [place] [address] Review of Pending Lab/Diagnostic Tests and Plan for Completion: -Operations During Hospitalization: Kidney Transplant -BE SURE TO RECORD ALL OF THE FOLLOWING, DAILY, AND BRING WITH YOU TO YOUR FOLLOW UP APPOINTMENTS: Blood pressure, Weight, Temperature, ALL Output from Hannon Catheter & AMELIE Drain (if applicable) Assessment and Support of Treatment Regimen Adherence and Medication Management: Not able to assess Education Provided by ACN to Support Self-Management, Independent Living and ADLs: Extensive DC instructions provided to patient. Communication with Home Health Agencies and Other Services Utilized/Needed by the Patient: documented in this encounter Plan of Treatment Upcoming Encounters Date Type Department Care Team (Late st Contact Info) Description 06/08/2025 9:30 AM EDT Office Visit [facility] [address] [place] [phone] Eric Malave MD [address] [place] [address] documented as of this encounter Goals Goal Patient Goal Type Associated Problems Recent Progress Patient-Stated? Author abstain from alcohol General Yes Gaviota Wilson LSW Note: Evaluation of progress towards goal: Maintain sobriety documented as of this encounter Visit Diagnoses Not on filedocumented in this encounter Additional Health Concerns Assessment Noted Time PHQ-9 Depression Total Score: 14 024 7:00 AM EDT A Body Mass Index follow-up plan has been documented for the patient 12/19/2018 3:58 PM EDT documented as of this encounter Care Teams Guest Services Representative Relationship Specialty Start Date End Date Eric Malave MD [address] [place] [address] PCP - General Internal Medicine 02/13/25 documented as of this encounter
--- OUTSIDE RECORDS SUMMARY | 2025-04-09 23:32 | XMS_ITS | Patient Health Record ---
Author Organization [facility] Address [address] [place] [address] Care Team Providers Care Testing And Regulating Technician Name Role Phone Afshin Mclean MD Primary Care Provider Unavail able Provider, ASC Unavailable [phone] Jethro Douglas Unavailable [phone] Yara Church Unavailable [phone] Allergies Allergen (clinical drug ingredient) Drug/Non Drug Allergy documented on EMR Reaction Allergy Type Onset Date Status lisinopril Lisinopril Unknown Drug Allergy Activ e Reason For Referral No Information Medications Medication SIG (Take, Route, Frequency, Duration) Notes Start Date End Date Status Protonix 40 MG 1 tablet Orally Once a day Unknown Tacrolimus ER 1 MG as directed Orally Unknown hydrOXYzine HCl 25 MG/ML as directed Intramuscular Unknown Lexapro 5 MG 1 tablet Orally Once a day Unknown Ursodiol 300 MG 1 capsule Orally Twi ce a day Unknown Xphozah 30 MG 1 tablet immediately before meals Orally Twice a day Unknown Calcium Acetate 667 MG 1 tablet with carol ls Orally Three times a day Unknown Dialyvite 800/Zinc 0.8 MG 1 tablet Orally Once a day Unknown Aspirin 81 81 MG 1 tablet Orally Once a day Unknown Bactrim DS 800-160 MG 1 tablet Orally Th ree times a Week Unknown Social History Tobacco Use: Social History Observation Description Date Details (start date - stop date) Former Smoker NA - NA Tobacco Control (Standard) Question Answer Notes Tobacco use: Former smoker Problems Problem Type SNOMED Code ICD Code Onset Dates Problem Status W/U Status Risk Notes Problem [id number] Arteriovenous fistula, acquired (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) Active confirmed Problem End stage renal disease (86222160) End stage renal disease (N18.6) Active confirmed Problem End stage renal disease (32423043) End stage chronic kidney disease (N18.6) Active confirmed Vital Signs Heart Rate 69 /min 05/20/2024 Oximetry 98 % 05/20/2024 Blood pressure diastolic 77 mm Hg 05/20/2024 Blood pressure systolic 129 mm Hg 05/20/2024 Encounters Encounter Location Date Provider Diagnosis Interventional Nephrology [facility] [address] [place] [address] 04/29/2024 Douglas Jethro Arteriovenous fistula, acquired I77.0 Interventional Nephrology [facility] [address] [place] [address] 05/20/2024 Douglas Jethro Arteriovenous fistula, acquired I77.0 [facility] [address] [place] [address] 07/14/2024 Douglas Jethro End stage chronic kidney disease N18.6 [facility] [address] [facility] [address] [place] [address] 07/14/2024 [facility] Provider [facility] Nephrology [place] [address] [place] [address] 08/28/2024 Yara Church Assessments Encounter Date Diagnosis (ICD Code) Assessment Notes Treatment Notes Treatment Clinical Notes Section Notes 04/29/2024 Arteriovenous fistula, acquired (ICD-10 - I77.0) pt seen, avf maturing well. Will continue to let avf mature for 1 more month,despite having a sizeable side branch I don't believe cannulation should be an issue. Will schedule follow up 05/20/2024 Arteriovenous fistula, acquired (ICD-10 - I77.0) Pt seen, avf matured well. OK TO CANNULATE. Area of cannulation marked, there are side branches above and below the marked area so please stay in the marked zone. When cannulation successful please refer back for TDC removal. 07/14/2024 End stage chronic kidney disease (ICD-10 - N18.6) Plan Of Treatment No Information Insurance Providers Payer Name Payer Address Payer Phone Subscriber Number Group Number Insured Name Patient Relationship to Insured Coverage Start Date Coverage End Date [employer] ACCESS PPO PLUS LOCAL PLAN [address] [place] [address] [id number] [place] Jamison Hunt Spouse - patient is the spouse of the insured 2 [place] [address] [place] [address] [id number] Sharifa Hunt Self - patient is the insured 4 Medical (General) History Medical History History ICD Code End stage chronic kidney disease N18.6
--- OUTSIDE RECORDS SUMMARY | 2025-04-09 23:32 | XMS_ITS | Encounter Summary ---
Author Organization [facility] Address [address] [place] [address] Care Team Providers Care Braid Cutter Name Role Phone arron Afshin [place] Primary Care Provider [phone] Teddy Diehl RN Unavailable Unavailable Kimberly Madrigal RN Unavailable Unavailable Source Comments In the event this information is protected by the Federal Confidentiality of Alcohol and Drug AbusePatient Records regulations: The Federal rules restrict any use of the information to criminally investigate or prosecute any alcohol or drug abuse patient.[facility] Encounter Details Date Type Department Care Team (Late st Contact Info) Description 07/05/2023 Lab Requisition [facility] [address] [place], [place] [phone] [place] [address] [place] [address] Social History Tobacco Use Types Packs/Day Years Used Date Smoking Tobacco: Former Cigarettes Smokeless Tobacco: Never Alcohol Use Standard Drinks/Week Comments Not Currently 0 (1 standard drink = 0.6 oz pur e alcohol) Area Deprivation Index Answer Date Justin rded National Score (1-100), lower number is lower ri 88 05/17/2023 State Score (1-10), lower number is lower risk 8 05/17/2023 Data from: https://www.neighborhoodatlas.medicine.[facility].edu/. Last address used for calculation [address] [facility] 05/17/2023 Comments No Sex and Gender Information Value Date Recorded Sex Assigned at Not on file Legal Sex Female 2:40 AM EDT Gender Identity Not on file Sexual Orientation Not on file documented as of this encounter Plan of Treatment Upcoming Encounters Date Type Department Care Team (Late st Contact Info) Description 05/06/2025 11:00 AM EDT Office Visit Transplant Center [address] [address] Clinic, Kidney Txp [address] [place] [address] Kid Txp - follow up appointment in Transplant clinic on 05/06/2025 documented as of this encounter Procedures Procedure Name Priority Date/Time Associated Diagnosis Comments BACTERIAL CULTURE, BLOOD Routine 07/05/2023 11:30 AM EDT documented in this encounter Results * BLOOD CULTURE (07/05/2023 11:30 AM EDT) Culture, Blood No growth 5 days 07/10/2023 11:01 PM EDT [facility] Blood BLOOD SPECIMEN / Unknown 07/05/2023 11:30 AM EDT 07/05/2023 6:09 PM EDT us Judson Perez DO MICROBIOLOGY Final Result [facility] [address] [facility] [address] [place] [address], documented in this encounter Visit Diagnoses Not on filedocumented in this encounter Additional Health Concerns Infection Onset Date Last Indicated Resolved Time COVID-19 Rule-Out 07/23/2023 07/23/2023 07/23/2023 2:25 AM EST Respiratory Rule-Out 07/23/2023 07/23/2023 023 2:25 AM EST COVID-19 Confirmed 07/23/2023 07/23/202308/02/202 3 8:51 PM EST documented as of this encounter Care Teams Braid Cutter Relationship Specialty Start Date End Date Afshin Chao [address] [place] [address] PCP - General Family Medicine 05/14/23 Teddy Diehl, RN Registered Nurse Transplant Center 06/29/23 Kimberly Madrigal, RN Registered Nurse Transplant Center 03/12/[address] [facility] Community Resource 06/07/23 documented as of this encounter
--- OUTSIDE RECORDS SUMMARY | 2025-04-09 23:32 | XMS_ITS | Encounter Summary ---
Author Organization [employer] Address [id number] [address] [place] [address] Care Team Providers Care Metal Spray Operator Name Role Phone Eric Malave MD Primary Care Provider [phone] Encounter Details Date Type Department Care Team (Late st Contact Info) Description 02/13/2025 Orders Only [facility] [address] [place] [phone] External, Scanning Provider Social History Tobacco Use Types Packs/Day Years [...] PM EDT documented as of this encounter Plan of Treatment Upcoming Encounters Date Type Department Care Team (Late st Contact Info) Description 06/08/2025 9:30 AM EDT Office Visit [facility] [address] [place] [phone] [place] [address] [place] [phone] documented as of this encounter Goals Goal Patient Goal Type Associated Problems Recent Progress Patient-Stated? Author abstain from alcohol General Yes Gaviota Wilson LSW Note: Evaluation of progress towards goal: Maintain sobriety documented as of this encounter Procedures Procedure Name Priority Date/Time Associated Diagnosis Comments DIABETES EYE EXAM Routine 02/13/2025 documented in this encounter Results * DIABETES EYE EXAM (02/13/2025) 02/13/2025 us Scanning Provider External HEALTH MAINTENANCE Fi nal Result MANUALLY TRANSCRIBED RESULTS documented in this encounter Visit Diagnoses Not on filedocumented in this encounter Additional Health Concerns Assessment Noted Time PHQ-9 Depression Total Score: 0 11/29/19 25 10:01 AM EDT A Body Mass Index follow-up plan has been documented for the patient 12/19/2018 3:58 PM EDT documented as of this encounter Care Teams Metal Spray Operator Relationship Specialty Start Date End Date Eric Malave MD [address] [place] [phone] PCP - General Internal Medicine 02/13/25 documented as of this encounter
--- OUTSIDE RECORDS SUMMARY | 2025-04-09 23:32 | XMS_ITS | Encounter Summary ---
Author Organization [facility] Address [address] [place] [address] Care Team Providers Care Php Consultant Name Role Phone Afshin Chao Primary Care Provider [phone] Teddy Diehl RN Unavailable Unavailable Kimberly Madrigal RN Unavailable Unavailable Source Comments In the event this information is protected by the Federal Confidentiality of Alcohol and Drug AbusePatient Records regulations: The Federal rules restrict any use of the information to criminally investigate or prosecute any alcohol or drug abuse patient.[facility] Encounter Details Date Type Department Care Team (Late st Contact Info) Description 04/06/2025 Patient Msg Transplant Center [address] [place] [address] Kimberly Madrigal, MINAL Vitamin d deficiency Social History Tobacco Use Types Packs/Day Years Used Date Smoking Tobacco: Former Cigarettes Smokeless Tobacco: Never Alcohol Use Standard Drinks/Week Comments Not Currently 0 (1 standard drink = 0.6 oz pur e alcohol) [facility] Utilities Answer Date Recorded In the [...] any time in the past 12 m [facility], were you homeless or living in a assisted (including now)? No 08/11/2024 Area Deprivation Index Answer Date Justin rded National Score (1-100), lower number is lower [place] 88 05/17/2023 State Score (1-10), lower number is lower risk 8 05/17/2023 Data from: https://www.neighborhoodatlas.medicine.[facility].edu/. Last address used for calculation [...] AM EDT Office Visit Transplant Center [address] [address] Clinic, Kidney Txp [address] [place], [place] [phone] Kid Txp - follow up appointment in Transplant clinic on 05/06/2025 documented as of this encounter Visit Diagnoses Not on filedocumented in this encounter Care Teams Php Consultant Relationship Specialty Start Date End Date Afshin Chao [address] [place] [address] PCP - General Family Medicine 05/14/23 Teddy Diehl, RN Registered Nurse Transplant Center 06/29/23 Kimberly Madrigal, RN Registered Nurse Transplant Center 03/12/25 YAIR Lagunas Community Resource 06/07/23 documented as of this encounter
--- OUTSIDE RECORDS SUMMARY | 2025-04-09 23:32 | XMS_ITS | Encounter Summary ---
Author Organization [facility] Address [address] [place] [address] Care Team Providers Care Railroad Conductor Name Role Phone arron Afshin Gavin Primary Care Provider [phone] Teddy Diehl RN Unavailable Unavailable Kimberly Madrigal RN Unavailable Unavailable Source Comments In the event this information is protected by the Federal Confidentiality of Alcohol and Drug AbusePatient Records regulations: The Federal rules restrict any use of the information to criminally investigate or prosecute any alcohol or drug abuse patient.[facility] Encounter Details Date Type Department Care Team (Late st Contact Info) Description 03/31/2025 Results Follow-Up Transplant Center [address] [place] [address] Teddy Diehl, MINAL Social History Tobacco Use Types Packs/Day Years Used Date Smoking Tobacco: Former Cigarettes Smokeless Tobacco: Never Alcohol Use Standard Drinks/Week Comments Not Currently 0 (1 standard drink = 0.6 oz pur e alcohol) [facility] Utilities Answer Date Recorded In the past [...] any time in the past 12 m [facility], were you homeless or living in a fci (including now)? No 08/11/2024 Area Deprivation Index Answer Date Justin rded National Score (1-100), lower number is lower ri sk 88 05/17/2023 State Score (1-10), lower number is lower risk 8 05/17/2023 Data from: https://www.neighborhoodatlas.medicine.[facility].edu/. Last address used for calculation [address] [facility] 05/17/2023 Comments No Sex and Gender Information [...] Sylwia Espinoza RN documented in this encounter Miscellaneous Notes * Result Encounter Note - Teddy Diehl RN - 04/01/2025 11:04 AM EDT Labs reviewed and stable with previous. Teddy Diehl RN, BSN Post Liver Fruit Culler * Result Encounter Note - Teddy Diehl RN - 03/31/2025 12:31 PM EDT Labs reviewed and stable with previous. Teddy Diehl RN, BSN Post Liver Fruit Culler documented in this encounter Plan of Treatment Upcoming Encounters Date Type Department Care Team (Late st Contact Info) Description 05/06/2025 11:00 AM EDT Office Visit Transplant Center [address] [address] Clinic, Kidney Txp [address] [place] [address] Kid Txp - follow up appointment in Transplant clinic on 05/06/2025 documented as of this encounter Visit Diagnoses Not on filedocumented in this encounter Care Teams Railroad Conductor Relationship Specialty Start Date End Date Afshin Chao [address] [place] [address] PCP - General Family Medicine 05/14/23 Teddy Diehl RN Registered Nurse Transplant Center 06/29/23 Kimberly Madrigal, RN Registered Nurse Transplant Center 03/12/25 YAIR [facility]iz [employer] Community Resource 06/07/23 documented as of this encounter
--- OUTSIDE RECORDS SUMMARY | 2025-04-09 23:32 | XMS_ITS | Encounter Summary ---
Author Organization [employer] Address [id number] [address] [place] [address] Care Team Providers Care Pantry Cook Name Role Phone Eric Malave MD Primary Care Provider [phone] Encounter Details Date Type Department Care Team (Late st Contact Info) Description 04/28/2021 Orders Only [facility] [address] [place] [phone] Afshin Mclean MD [address]. Provider retired 12/16/24 [place], [place] [id number] Social History Tobacco Use Types Packs/Day Years [...] PHQ-2 Answer Date Recorded Total Score 0 11/16/2020 Childcare Answer Date Recorded Childcare Unknown 02/24/2019 Employment Answer Date Recorded Employment Unknown 02/24/2019 Purpose - Life Answer Date Recorded Purpose [...] EDT Office Visit [facility] [address] [place] [phone] Eric Malave MD [address] [place] [phone] documented as of this encounter Visit Diagnoses Not on filedocumented in this encounter Additional Health Concerns Infection Onset Date Last Indicated Resolved Time COVID-19 Rule-Out 07/05/2021 07/05/2021 07/06/2021 5:20 PM EDT Enteric Rule-Out 09/05/2023 09/05/2023 09/12/2023 11:12 PM EST Assessment Noted Time PHQ-9 Depression Total Score: 0 11/17/19 21 2:00 PM EST A Body Mass Index follow-up plan has been documented for the patient 12/19/2018 3:58 PM EDT documented as of this encounter Care Teams Pantry Cook Relationship Specialty Start Date End Date Eric Malave MD [address] [place] [phone] PCP - General Internal Medicine 02/13/25 documented as of this encounter
--- OUTSIDE RECORDS SUMMARY | 2025-04-09 23:32 | XMS_ITS | Encounter Summary ---
Author Organization [facility] Address [address] [place] [address] Care Team Providers Care Consumer Sales Representative Name Role Phone ChaoAfshin Primary Care Provider [phone] Teddy Diehl RN Unavailable Unavailable Kimberly Madrigal RN Unavailable Unavailable Source Comments In the event this information is protected by the Federal Confidentiality of Alcohol and Drug AbusePatient Records regulations: The Federal rules restrict any use of the information to criminally investigate or prosecute any alcohol or drug abuse patient.[facility] Encounter Details Date Type Department Care Team (Latest Contact Info) Description 03/31/2025 Travel Social History Tobacco Use Types Packs/Day Years Used Date Smoking Tobacco: Former Cigarettes Smokeless Tobacco: Never Alcohol Use Standard Drinks/Week Comments Not Currently 0 (1 standard drink = 0.6 oz pur e alcohol) [facility] Utilities Answer Date Recorded In the past 12 months has th e electric, gas, oil, or water company [...] any time in the past 12 m [facility], were you homeless or living in a correction (including now)? No 08/11/2024 Area Deprivation Index Answer Date Justin rded National Score (1-100), lower number is lower ri sk 88 05/17/2023 State Score (1-10), lower number is lower risk 8 05/17/2023 Data from: https://www.neighborhoodatlas.medicine.[facility].edu/. Last address used for calculation [address] [facility] 05/17/2023 Comments No Sex and Gender Information [...] Sylwia Espinoza, MINAL * Do you have difficulty dressing or bathing? Answer Date of Assessment Author No 08/12/2024 4:29 PM Sylwia Espinoza, MINAL * Because of a physical, mental, or [...] EDT Office Visit Transplant Center [address] [address] Clinic, Kidney Txp [address] [place] [address] Kid Txp - follow up appointment in Transplant clinic on 05/06/2025 documented as of this encounter Visit Diagnoses Not on filedocumented in this encounter Care Teams Consumer Sales Representative Relationship Specialty Start Date End Date Afshin Chao [address] [place] [address] PCP - General Family Medicine 05/14/23 Teddy Diehl, RN Registered Nurse Transplant Center 06/29/23 Kimberly Madrigal, RN Registered Nurse Transplant Center 03/12/25 YAIR [facility] Community Resource 06/07/23 documented as of this encounter
--- OUTSIDE RECORDS SUMMARY | 2025-04-09 23:32 | XMS_ITS | Encounter Summary ---
Author Organization [employer] Address [id number] [address] [place] [address] Care Team Providers Care Tree Deadener Name Role Phone Eric Malave MD Primary Care Provider [phone] Reason for Visit * Reason Comments Med Refill Encounter Details Date Type Department Care Team (Late st Contact Info) Description 01/23/2020 Refill [facility] [address] [place] [phone] Afshin Mclean MD [address]. Provider retired 12/16/24 [place] [address] Social History Tobacco Use Types Packs/Day Years [...] EDT Office Visit [facility] [address] [place] [phone] Eric Malave MD [address] [place] [address] [phone] documented as of this encounter Visit Diagnoses [...] documented as of this encounter Care Teams Tree Deadener Relationship Specialty Start Date End Date Eric Malave MD [address] [place] [address] [phone] PCP - General Internal Medicine 02/13/25 documented as of this encounter
--- OUTSIDE RECORDS SUMMARY | 2025-04-09 23:32 | XMS_ITS | Encounter Summary ---
Author Organization [facility] Address [address] [place] [address] Care Team Providers Care International Affairs Vice President Name Role Phone arron Afshin Gavin Primary Care Provider [phone] Teddy Diehl RN Unavailable Unavailable Kimberly Madrigal RN Unavailable Unavailable Source Comments In the event this information is protected by the Federal Confidentiality of Alcohol and Drug AbusePatient Records regulations: The Federal rules restrict any use of the information to criminally investigate or prosecute any alcohol or drug abuse patient.[facility] Encounter Details Date Type Department Care Team (Late st Contact Info) Description 07/21/2023 Lab Requisition [facility] [address] [place] [address] Maura Cohen MD [address] [facility] [address] [place] [address] Social History Tobacco Use Types Packs/Day Years Used Date Smoking Tobacco: Former Cigarettes Smokeless Tobacco: Never Alcohol Use Standard Drinks/Week Comments Not Currently 0 (1 standard drink = 0.6 oz pur e alcohol) Area Deprivation Index Answer Date Justin rded National Score (1-100), lower number is lower [place] [id number] 05/17/2023 State Score (1-10), lower number is lower risk 8 05/17/2023 Data from: https://www.neighborhoodatlas.medicine.[facility].edu/. Last address used for calculation [address] 05/17/2023 Comments No Sex and Gender Information Value Date Recorded Sex Assigned at Not on file Legal Sex Female 2:40 AM EDT Gender Identity Not on file Sexual Orientation Not on file documented as of this encounter Plan of Treatment Upcoming Encounters Date Type Department Care Team (Late st Contact Info) Description 05/06/2025 11:00 AM EDT Office Visit Transplant Center [address] [address] Clinic, Kidney Txp [address] [place] [address] Kid Txp - follow up appointment in Transplant clinic on 05/06/2025 documented as of this encounter Procedures Procedure Name Priority Date/Time Associated Diagnosis Comments BACTERIAL CULTURE, BLOOD STAT 07/21/2023 11:49 PM EDT documented in this encounter Results * BLOOD CULTURE (07/21/2023 11:49 PM EDT) Culture, Blood No growth 5 days 07/27/2023 2:01 PM EST [facility] Blood BLOOD SPECIMEN / Unknown 07/21/2023 11:49 PM EDT 07/22/2023 5:01 AM EST us Maura Cohen MD MICROBIOLOGY Final Result [facility] [address] [facility] [address] [place] [address], documented in this encounter Visit Diagnoses Not on filedocumented in this encounter Additional Health Concerns Infection Onset Date Last Indicated Resolved Time COVID-19 Rule-Out 07/23/2023 07/23/2023 07/23/2023 2:25 AM EST Respiratory Rule-Out 07/23/2023 07/23/2023 023 2:25 AM EST COVID-19 Confirmed 07/23/2023 07/23/2023 3 8:51 PM EST documented as of this encounter Care Teams International Affairs Vice President Relationship Specialty Start Date End Date Afshin Chao [address] [place] [address] PCP - General Family Medicine 05/14/23 Teddy Diehl, RN Registered Nurse Transplant Center 06/29/23 Kimberly Madrigal, RN Registered Nurse Transplant Center 03/12/25 YAIR Muniz [facility] Community Resource 06/07/23 documented as of this encounter
--- OUTSIDE RECORDS SUMMARY | 2025-04-09 23:32 | XMS_ITS | Encounter Summary ---
Author Organization [employer] Address [id number] [address] [place] [address] Care Team Providers Care Loan Auditor Name Role Phone Eric Malave MD Primary Care Provider [phone] Encounter Details Date Type Department Care Team (Late st Contact Info) Description 11/25/2020 Orders Only [facility] [address] [place] [phone] Afshin Mclean MD [address]. Provider retired 12/16/24 [place], [place] [phone] Diabetes mellitus type 2 in obese ([facility]) (Primary Dx) Social History Tobacco Use Types Packs/Day Years [...] have Coronavirus / COVID-19? No / Unsure 11/16/2020 1:57 PM EST documented as of this encounter Plan of Treatment Upcoming Encounters Date Type Department Care Team (Late st Contact Info) Description 06/08/2025 9:30 AM EDT Office Visit [facility] [address] [place] [phone] Eric Malave MD [address] [place] [address] documented as of this encounter Visit Diagnoses Diagnosis Diabetes mellitus type 2 in obese- Primary Type II or unspecified type diabetes mellitus without mention of complication, not stated as uncontrolled documented in this encounter Additional Health Concerns Infection [...] documented as of this encounter Care Teams Loan Auditor Relationship Specialty Start Date End Date Eric Malave MD [address] [place] [address] [phone] PCP - General Internal Medicine 02/13/25 documented as of this encounter
--- OUTSIDE RECORDS SUMMARY | 2025-04-09 23:32 | XMS_ITS | Encounter Summary ---
Author Organization [facility] Address [address] [place] [address] Care Team Providers Care Audio Production Instructor Name Role Phone ChaoAfshin Primary Care Provider [phone] Teddy Diehl RN Unavailable Unavailable Kimberly Madrigal RN Unavailable Unavailable Source Comments In the event this information is protected by the Federal Confidentiality of Alcohol and Drug AbusePatient Records regulations: The Federal rules restrict any use of the information to criminally investigate or prosecute any alcohol or drug abuse patient.[facility] Encounter Details Date Type Department Care Team (Late st Contact Info) Description 03/24/2025 [place] [address] Provider, Ccf Sign up to manage your digestive symptoms in between visits, covered by insurance Social History Tobacco Use Types Packs/Day Years Used Date Smoking Tobacco: Former Cigarettes Smokeless Tobacco: Never Alcohol Use Standard Drinks/Week Comments Not Currently 0 (1 standard drink = 0.6 oz pur e alcohol) [facility] Utilities Answer Date Recorded In the [...] any time in the past 12 m [facility], were you homeless or living in a long term (including now)? No 08/11/2024 Area Deprivation Index Answer Date Justin rded National Score (1-100), lower number is lower ri sk 88 05/17/2023 State Score (1-10), lower number is lower risk 8 05/17/2023 Data from: https://www.neighborhoodatlas.medicine.[facility].edu/. Last address used for calculation [address] [place] [address] 05/17/2023 Comments No Sex and Gender Information Value Date Recorded Sex Assigned at Not on file Legal Sex Female 2:40 AM EDT Gender Identity Not on file Sexual Orientation Not on file documented as of this encounter Functional Status * Are you deaf or do you have serious difficulty hearing? Answer Date of Assessment Author No 08/12/2024 4:29 PM Sylwia Espinoza, MINAL * Are you blind or do you [...] Assessment Author No 08/12/2024 4:29 PM Sylwia sEpinoza RN * Because of a physical, mental, [...] EDT Office Visit Transplant Center [address] [address] Clinic, Kidney Txp [address] [place] [address] Kid Txp - follow up appointment in Transplant clinic on 05/06/2025 documented as of this encounter Visit Diagnoses Not on filedocumented in this encounter Care Teams Audio Production Instructor Relationship Specialty Start Date End Date Afshin Chao [address] [place] [address] PCP - General Family Medicine 05/14/23 Teddy Diehl, RN Registered Nurse Transplant Center 06/29/23 Kimberly Madrigal, RN Registered Nurse Transplant Center 03/12/25 YAIR Muniz [facility] Community Resource 06/07/23 documented as of this encounter
--- OUTSIDE RECORDS SUMMARY | 2025-04-09 23:32 | XMS_ITS | Encounter Summary ---
Author Organization [facility] Address [address] [place] [address] Care Team Providers Care Lozenge Dough Mixer Name Role Phone Afshin Chao Primary Care Provider [phone] Teddy Diehl RN Unavailable Unavailable Kimberly Madrigal RN Unavailable Unavailable Source Comments In the event this information is protected by the Federal Confidentiality of Alcohol and Drug AbusePatient Records regulations: The Federal rules restrict any use of the information to criminally investigate or prosecute any alcohol or drug abuse patient.[facility] Encounter Details Date Type Department Care Team (Late st Contact Info) Description 09/18/2024 Get Medical Advice Transplant Center [address] [place] [address] Kimberly Madrigal, MINAL Labs Social History Tobacco Use Types Packs/Day Years [...] any time in the past 12 m [facility], were you homeless or living in a custodial (including now)? No 08/11/2024 Area Deprivation Index Answer Date Justin rded National Score (1-100), lower number is lower ri sk 88 05/17/2023 State Score (1-10), lower number is lower risk 8 05/17/2023 Data from: https://www.neighborhoodatlas.medicine.[facility].edu/. Last address used for calculation [address] [facility] 05/17/2023 Comments No Sex and Gender [...] AM EDT Office Visit Transplant Center [address] [address] Clinic, Kidney Txp [address] [place], [place] [phone] Kid Txp - follow up appointment in Transplant clinic on 05/06/2025 documented as of this encounter Visit Diagnoses Not on filedocumented in this encounter Care Teams Lozenge Dough Mixer Relationship Specialty Start Date End Date Afshin Chao [address] [place] [address] PCP - General Family Medicine 05/14/23 Teddy Diehl, RN Registered Nurse Transplant Center 06/29/23 Kimberly Madrigal, RN Registered Nurse Transplant Center 03/12/25 YAIR [facility] Community Resource 06/07/23 documented as of this encounter
--- OUTSIDE RECORDS SUMMARY | 2025-04-09 23:32 | XMS_ITS ---
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 Infection History Noted Survival Infection Treatment Organism Resolved 07/28/2023 56 days Fungus present in urine 07/23/2023 51 days COVID 06/04/2023 2 days Infection due to Enterobacter species Donor Information Organ ABO Source Meets Risk Criteria HLA Match Mismatches Cross Match Liver Transplanted O DBD No A: B: DR: Liver Donor Serology Results Anti-CMV CMV IgG: Negative EBV IgG EBV VCA IgG: Positive Anti-HBcAb HBC Total: Negative HBsAg HBsAg: Negative HBV DNA No results on file Anti-HCV HCV: Negative Anti-HIV I/II HIV-1: Negative HIV Ag/Ab Combo Assay: Not Done Anti-HTLV I/II HTLV: Not Done RPR/VDRL RPR: Negative EBV IgM EBV VCA IgM: Negative HBsAb HBsAb: Not Done EBNA No results on file Toxoplasma Toxoplasma IgG: Negative HSV 1 No results on file HSV 2 No results on file Quantiferon TB No results on file Measles No results on file Mumps No results on file SARS CoV-2 No results on file anti-HBc No results on file Chagas No results on file WNVNAT No results on file HBV PEBBLES No results on file HCV PEBBLES HCV PEBBLES: Negative Strongyloides No results on file Care Team Name Role Phone Fax Email Teddy Diehl RN Liver Coordinator N/A N/A N/A Fabio Walter MD Surgeon [phone] [email or web address] VARINDER Dale Parliamentary Librarian N/A N/A N/A Julio Cesar Khoury MD Anesthesiologist [phone] N/A VARINDER Voss Parliamentary Librarian [phone] N/A Victoriano Stacy MD Referring Transplant Physician [phone] N/A Events Post-Transplant Pre-Transplant Admitted: 05/14/2023 Referred: 05/16/2023 Transplanted: 06/02/2023 Evaluation began: 3 Discharged: 06/30/2023 Committee: 05/30/2023 Center waitlisted: 3 Dialysis History Dialysis History Start End Type Comments Center 09/18/2023 07/24/2024 In-center Hemodialysis t,th,sa [facility] Dialysis Center Information Center Phone Fax Address [facility] [phone] [address] [place] [address]
--- OUTSIDE RECORDS SUMMARY | 2025-04-09 23:32 | XMS_ITS | Encounter Summary ---
Author Organization [facility] Address [address] [place] [address] Care Team Providers Care Retail Sales Associate Seasonal Name Role Phone arron Afshin Gavin Primary Care Provider [phone] Teddy Diehl RN Unavailable Unavailable Kimberly Madrigal RN Unavailable Unavailable Source Comments In the event this information is protected by the Federal Confidentiality of Alcohol and Drug AbusePatient Records regulations: The Federal rules restrict any use of the information to criminally investigate or prosecute any alcohol or drug abuse patient.[facility] Encounter Details Date Type Department Care Team (Late st Contact Info) Description 12/10/2024 [place] [address] Provider, Ccf Important information about your scheduled Allergy and Immunology appointment Social History Tobacco Use Types Packs/Day Years Used Date Smoking Tobacco: Former Cigarettes Smokeless Tobacco: Never Alcohol Use Standard Drinks/Week Comments Not Currently 0 (1 standard drink = 0.6 oz pur e alcohol) [facility] Utilities Answer Date Recorded In the past [...] any time in the past 12 m onths, were you homeless or living in a fdc (including now)? No 08/11/2024 Area Deprivation Index Answer Date Justin rded National Score (1-100), lower number is lower ri sk 88 05/17/2023 State Score (1-10), lower number is lower risk 8 05/17/2023 Data from: https://www.neighborhoodatlas.medicine.[facility].edu/. Last address used for calculation [address] [facility] 05/17/2023 Comments No Sex and Gender [...] AM EDT Office Visit Transplant Center [address] [address] Clinic, Kidney Txp [address] [place] [address] Kid Txp - follow up appointment in Transplant clinic on 05/06/2025 documented as of this encounter Visit Diagnoses Not on filedocumented in this encounter Care Teams Retail Sales Associate Seasonal Relationship Specialty Start Date End Date Afshin Chao [address] [place] [address] PCP - General Family Medicine 05/14/23 Teddy Diehl, RN Registered Nurse Transplant Center 06/29/23 Kimberly Madrigal, RN Registered Nurse Transplant Center 03/12/[address] [facility] Community Resource 06/07/23 documented as of this encounter
--- OUTSIDE RECORDS SUMMARY | 2025-04-09 23:32 | XMS_ITS | Encounter Summary ---
Author Organization [employer] Address [id number] [address] [place] [address] Care Team Providers Care Brigadier Name Role Phone Eric Malave MD Primary Care Provider [phone] Reason for Visit * Reason Comments Med Refill Encounter Details Date Type Department Care Team (Late st Contact Info) Description 01/19/2020 Refill [facility] [address] [place] [phone] Afshin Mclean MD [address]. Provider retired 12/16/24 [place] [address] Social History Tobacco Use Types Packs/Day Years [...] EDT Office Visit [facility] [address] [place] [phone] Eric Malave MD [address] [place] [address] [phone] documented as of this encounter Visit Diagnoses [...] documented as of this encounter Care Teams Brigadier Relationship Specialty Start Date End Date Eric Malave MD [address] [place] [address] [id number] PCP - General Internal Medicine 02/13/25 documented as of this encounter
--- OUTSIDE RECORDS SUMMARY | 2025-04-09 23:32 | XMS_ITS | Encounter Summary ---
Author Organization [facility] Address [facility] [place] [address] Care Team Providers Care Internet Marketing Analyst Name Role Phone arron Afshin Gavin Primary Care Provider [phone] Teddy Diehl RN Unavailable Unavailable Kimberly Madrigal RN Unavailable Unavailable Source Comments In the event this information is protected by the Federal Confidentiality of Alcohol and Drug AbusePatient Records regulations: The Federal rules restrict any use of the information to criminally investigate or prosecute any alcohol or drug abuse patient.[facility] Encounter Details Date Type Department Care Team (Late st Contact Info) Description 2024 Patient Msg Transplant Center [address] [place] [phone] Clinic, Kidney Txp [address] [place] [phone] Appointment Cancellation Request Social History Tobacco Use Types Packs/Day Years Used Date Smoking Tobacco: Former Cigarettes Smokeless Tobacco: Never Alcohol Use Standard Drinks/Week Comments Not Currently 0 (1 standard drink = 0.6 oz pur e alcohol) [facility] Utilities Answer Date Recorded In the past 12 months has [employer] electric, gas, oil, or water company threatened [...] any time in the past 12 m [facility], were you homeless or living in a custodial (including now)? No 08/11/2024 Area Deprivation Index Answer Date Justin rded National Score (1-100), lower number is lower ri sk 88 05/17/2023 State Score (1-10), lower number is lower risk 8 05/17/2023 Data from: https://www.neighborhoodatlas.medicine.[facility].edu/. Last address used for calculation [address] [place] [address] 05/17/2023 Comments No Sex and Gender Information [...] AM EDT Office Visit Transplant Center [address] [address] Clinic, Kidney Txp [address] [place] [address] Kid Txp - follow up appointment in Transplant clinic on 05/06/2025 documented as of this encounter Visit Diagnoses Not on filedocumented in this encounter Care Teams Internet Marketing Analyst Relationship Specialty Start Date End Date Afshin Chao [address] [place] [address] PCP - General Family Medicine 05/14/23 Teddy Diehl, RN Registered Nurse Transplant Center 06/29/23 Kimberly Madrigal, MINAL Registered Nurse Transplant Center 03/12/25 YAIR [facility] Community Resource 06/07/23 documented as of this encounter
--- OUTSIDE RECORDS SUMMARY | 2025-04-09 23:32 | XMS_ITS | Encounter Summary ---
Author Organization [email or web address] Address [facility] [id number] [address] [place] [address] Care Team Providers Care Electrostatic Paint Operator Name Role Phone Eric Malave MD Primary Care Provider [phone] Reason for Visit * Reason Onset Date Comments Transition Of Care 08/13/2024 Encounter Details Date Type Department Care Team (Late st Contact Info) Description 08/13/2024 Telephone [facility] [address] [place] [phone] Chinyere Stevens, MINAL Transition Of Care Social [...] Telephone Encounter - Chinyere Stevens RN - 08/13/2024 8:10 AM EST Transition of Care Additional Questions/Concerns Requiring PCP Follow-Up: Patient said she would call to schedule EDGAR. Patient will need it for home health with PCP to follow. Patient aware. This documentation is being used for Transition of Care purposes: Yes Goal: Patient will demonstrate a safe transition from hospital to home. Diagnosis on Discharge: Kidney replaced by transplant, ESRD At risk for infection [Z91.89] Discharge Specialty: Infectious Disease and Nephrology Name of Discharging Facility: [facility] Date of Facility Discharge: 08/08/24 - 08/12/24 Date of Interactive Contact and Name of Legal Mediator: Spoke with Sharifa on 1979 Medication Review Completed: No Medication Reconciliation Questions/Concerns: Humalog 4-4-2 units with meals - hold if not eating Check blood sugars Three times a Day Ordered Prescriptions Prescription Sig Dispensed Refills Start Date End Date insulin lispro (HUMALOG KWIKPEN) 100 unit/mL Inject 4 Units subcutaneously daily with breakfast AND4 Units daily with lunch AND 2 Units daily with dinner. Plus scale#2 with meals If Blood Glucose (mg/dL) is <110 Give 0 units 111-150 Give 0 units 151-200 Give 2 unit 201-250 Give 4 units 251-300 Give 6 units 301-350 Give 8 units 351-400 Give 10 units >400 Give 10 units and Call physician. Max daily dose: 40 units. 15 mL 08/12/2024 11/10/2024 furosemide (LASIX) 40 mg tablet Take 1 tablet by mouth once daily. 90 tablet 08/12/2024 11/10/2024 ursodiol (ACTIGALL) 300 mg capsule Take 1 capsule by mouth two times a day. 08/12/2024 insulin lispro (HUMALOG KWIKPEN) 100 unit/mL Inject 4 Units subcutaneously daily with breakfast AND4 Units daily with lunch AND 2 Units daily with dinner. Plus scale#2 with meals If Blood Glucose (mg/dL) is <110 Give 0 units 111-150 Give 0 units 151-200 Give 2 unit 201-250 Give 4 units 251-300 Give 6 units 301-350 Give 8 units 351-400 Give 10 units >400 Give 10 units and Call physician. Max daily dose: 40 units. 15 mL 08/12/2024 08/12/2024 furosemide (LASIX) 40 mg tablet Take 1 tablet by mouth once daily. 90 tablet 08/12/2024 08/12/2024 Follow Up Appointments with Providers: Primary: Afshin Gonzalez MD- nothing scheduled Specialty: 08/13/2024 9:20 AM KIDNEY TXP CLINIC Mn Q Bldg [phone] 08/18/2024 9:00 AM KIDNEY TXP CLINIC Nv Q Bldg [phone] 08/18/2024 9:20 AM SUNNY BARAHONA Nv Q Bldg [phone] 08/19/2024 10:00 AM ISAIAS WRIGHT Nv G Bldg [phone] 08/21/2024 8:40 AM KIDNEY TXP CLINIC Nv Q Bldg [phone] 08/21/2024 9:20 AM CEDRIC STAUFFER Nv Q Bldg [phone] 09/12/2024 2:30 PM RONAL KHAN Nv G Bldg [phone] Specialty: Specialty: Review of Pending Lab/Diagnostic Tests and Plan for Completion: Kidney Transplant 07/24/24 Keep log: Blood pressure, Weight, Temperature, ALL Output from [facility]annon Catheter & AMELIE Drain Assessment and Support of Treatment Regimen Adherence and Medication Management: Patient is feeling fine and denies any questions or concerns. She was not home to review medications and states that she is fine with them, including her insulin sliding scale. Good family support, no DME needs. Education Provided by [facility] to Support Self-Management, Independent Living and ADLs: Reviewed DC instructions Diet: Low Salt, Low Fat, Low Calorie, Low potassium Follow up with finisher hand and healthcare social worker as recommended. Patient will need follow-up with the kidney transplant team after discharge Important Phone Numbers: Kidney Transplant Office: [phone] (Option 3) Outpatient Lab: [phone] or [phone] Communication with Home Health Agencies and Other Services Utilized/Needed by the Patient: Home Health Care Agency [facility] Start of Care 08/18/24 Your first nursing visit will be next Sunday for line dressing change. Home Infusion Pharmacy Agency [facility] Phone/ /[phone] Start of Care 08/12/24 Pharmacy will deliver to your home this evening. documented in this encounter Plan of Treatment Upcoming Encounters Date Type Department Care Team (Late st Contact Info) Description 06/08/2025 9:30 AM EDT Office Visit [facility] [address] [place] [phone] Eric Malave MD [address] [place] [address] documented as of this encounter Goals [...] documented as of this encounter Care Teams Electrostatic Paint Operator Relationship Specialty Start Date End Date Eric Malave MD [address] [place] [address] PCP - General Internal Medicine 02/13/25 documented as of this encounter
--- OUTSIDE RECORDS SUMMARY | 2025-04-09 23:32 | XMS_ITS | Encounter Summary ---
Author Organization [facility] Address [facility] [place] [address] Care Team Providers Care Disk Sharpener Name Role Phone arron Afshin Gavin Primary Care Provider [phone] Teddy Diehl RN Unavailable Unavailable Kimberly Madrigal RN Unavailable Unavailable Source Comments In the event this information is protected by the Federal Confidentiality of Alcohol and Drug AbusePatient Records regulations: The Federal rules restrict any use of the information to criminally investigate or prosecute any alcohol or drug abuse patient.[facility] Encounter Details Date Type Department Care Team (Late st Contact Info) Description 2024 Patient Msg Transplant Center [address] [place] [phone] Clinic, Kidney Txp [address] [place] [phone] Appointment Cancellation Request Social History Tobacco Use Types Packs/Day Years Used Date Smoking Tobacco: Former Cigarettes Smokeless Tobacco: Never Alcohol Use Standard Drinks/Week Comments Not Currently 0 (1 standard drink = 0.6 oz pur e alcohol) [facility] Utilities Answer Date Recorded In the past 12 months has [employer] electric, gas, oil, or water company threatened [...] any time in the past 12 m [facility], were you homeless or living in a longterm (including now)? No 08/11/2024 Area Deprivation Index Answer Date Justin rded National Score (1-100), lower number is lower ri sk 88 05/17/2023 State Score (1-10), lower number is lower risk 8 05/17/2023 Data from: https://www.neighborhoodatlas.medicine.[facility].edu/. Last address used for calculation [address] [place] [address] 05/17/2023 Comments No Sex and Gender Information [...] EDT Office Visit Transplant Center [address] [address] Clinic, Kidney Txp [address] [place] [address] Kid Txp - follow up appointment in Transplant clinic on 05/06/2025 documented as of this encounter Visit Diagnoses Not on filedocumented in this encounter Care Teams Disk Sharpener Relationship Specialty Start Date End Date Afshin Chao [address] [place] [address] PCP - General Family Medicine 05/14/23 Teddy Diehl, RN Registered Nurse Transplant Center 06/29/23 Kimberly Madrigal, MINAL Registered Nurse Transplant Center 03/12/25 YAIR [facility] Community Resource 06/07/23 documented as of this encounter
--- OUTSIDE RECORDS SUMMARY | 2025-04-09 23:32 | XMS_ITS | Encounter Summary ---
Author Organization [facility] Address [address] [place] [address] Care Team Providers Care Home Health Care Worker Name Role Phone ChaoAfshin Primary Care Provider [phone] Teddy Diehl RN Unavailable Unavailable Kimberly Madrigal RN Unavailable Unavailable Source Comments In the event this information is protected by the Federal Confidentiality of Alcohol and Drug AbusePatient Records regulations: The Federal rules restrict any use of the information to criminally investigate or prosecute any alcohol or drug abuse patient.[facility] Encounter Details Date Type Department Care Team (Late st Contact Info) Description 08/27/2024 Patient Msg Transplant Center [address] [place] [address] Provider, Ccf Missing labs Social History Tobacco Use Types Packs/Day Years Used Date Smoking Tobacco: Former Cigarettes Smokeless Tobacco: Never Alcohol Use Standard Drinks/Week Comments Not Currently 0 (1 standard drink = 0.6 oz pur e alcohol) [facility] Utilities Answer Date Recorded In the past [...] any time in the past 12 m [facility], were you homeless or living in a long-term (including now)? No 08/11/2024 Area Deprivation Index Answer Date Justin rded National Score (1-100), lower number is lower ri sk 88 05/17/2023 State Score (1-10), lower number is lower risk 8 05/17/2023 Data from: https://www.neighborhoodatlas.medicine.[facility].edu/. Last address used for calculation [address] [place] [address] 05/17/2023 Comments No Sex and Gender Information [...] AM EDT Office Visit Transplant Center [address] [address] Clinic, Kidney Txp [address] [place] [address] Kid Txp - follow up appointment in Transplant clinic on 05/06/2025 documented as of this encounter Visit Diagnoses Not on filedocumented in this encounter Care Teams Home Health Care Worker Relationship Specialty Start Date End Date Afshin Chao [address] [place] [address] PCP - General Family Medicine 05/14/23 Teddy Diehl, RN Registered Nurse Transplant Center 06/29/23 Kimberly Mdarigal, RN Registered Nurse Transplant Center 03/12/25 YAIR Muniz [facility] Community Resource 06/07/23 documented as of this encounter
--- OUTSIDE RECORDS SUMMARY | 2025-04-09 23:32 | XMS_ITS | Encounter Summary ---
Author Organization [facility] Address [address] [place] [address] Care Team Providers Care Drywall Hanger Helper Name Role Phone Afshin Chao Primary Care Provider [phone] Teddy Diehl RN Unavailable Unavailable Kimberly Madrigal RN Unavailable Unavailable Source Comments In the event this information is protected by the Federal Confidentiality of Alcohol and Drug AbusePatient Records regulations: The Federal rules restrict any use of the information to criminally investigate or prosecute any alcohol or drug abuse patient.[facility] Reason for Visit * Reason Comments Rx Refills Encounter Details Date Type Department Care Team (Late st Contact Info) Description 04/06/2025 Refill Transplant Center [address] [place] [address] Kimberly Madrigal, MINAL Rx Refills Social History Tobacco Use Types Packs/Day Years Used Date Smoking Tobacco: Former Cigarettes Smokeless Tobacco: Never Alcohol Use Standard Drinks/Week Comments Not Currently 0 (1 standard drink = 0.6 oz pur e alcohol) [facility] Utilities Answer Date Recorded In the [...] any time in the past 12 m [facility], were you homeless or living in a intermediate (including now)? No 08/11/2024 Area Deprivation Index Answer Date Justin rded National Score (1-100), lower number is lower ri sk 88 05/17/2023 State Score (1-10), lower number is lower risk 8 05/17/2023 Data from: https://www.neighborhoodatlas.medicine.[facility].edu/. Last address used for calculation [address] [facility] 05/17/2023 Comments No Sex and Gender Information [...] documented in this encounter Miscellaneous Notes * Telephone Encounter - Kimberly Madrigal RN - 04/06/2025 5:03 PM EDT Patient needs prescription as follows: Requested Prescriptions Pending Prescriptions Disp Refills ergocalciferol 50,000 unit capsule (VITAMIN D2, DRISDOL) 12 capsule 0 Sig: Take 1 capsule by mouth one time a week. Please review and advise. Kimberly Madrigal RN documented in this encounter Plan of Treatment Upcoming Encounters Date Type Department Care Team (Late st Contact Info) Description 05/06/2025 11:00 AM EDT Office Visit Transplant Center [address] [address] Clinic, Kidney Txp [address] [place], [place] [phone] Kid Txp - follow up appointment in Transplant clinic on 05/06/2025 documented as of this encounter Visit Diagnoses Diagnosis Vitamin D deficiency- Primary Unspecified vitamin D deficiency documented in this encounter Care Teams Drywall Hanger Helper Relationship Specialty Start Date End Date Afshin Chao [address] [place] [address] PCP - General Family Medicine 05/14/23 Teddy Diehl RN Registered Nurse Transplant Center 06/29/23 Kimberly Madrigal RN Registered Nurse Transplant Center 03/12/25 Y[facility]IR [facility] Community Resource 06/07/23 documented as of this encounter
--- OUTSIDE RECORDS SUMMARY | 2025-04-09 23:32 | XMS_ITS | Clinical Summary ---
Author Organization [facility] Address [address] [place] [address] Care Team Providers Care Mold Cleaning And Storage Supervisor Name Role Phone Afshin Mclean MD Primary Care Provider [phone] Family History Medical History Relation Name Comments Diabetes Father Heart disease Father Hypertension Father Relation Name Status Comments Father Alive Mother Alive Social History Tobacco Use Types Packs/Day Years Used Date Smoking Tobacco: Former Cigarettes Smokeless Tobacco: Never Tobacco Cessation:Counseling Given: Not Answered Alcohol Use Standard Drinks/Week Comments Yes 0 (1 standard drink = 0.6 oz pur e alcohol) [facility] Answer Date Recorded Q1: How often do you have a drink containing alc ohol? 2-4 times a month 11/12/2023 Average Number of Drinks Not on file 024 Frequency of Binge Drinking Not on file 10/19 Comments Unknown Sex and Gender Information Value Date Recorded Sex Assigned at Female 11/22/2023 8:34 PM EST Legal Sex Female 7:13 PM EDT Gender Identity Female 11/22/2023 8:34 PM EST Sexual Orientation Straight 11/22/2023 8: 34 PM EST Last Filed Vital Signs Vital Sign Reading Time Taken Comments Blood Pressure 146/84 01/22/2018 12:00 PM EDT Pulse - - Temperature - - Respiratory Rate - - Oxygen Saturation - - Inhaled Oxygen Concentration - - Weight 120 kg (265 lb) 10/20/2020 12:00 PM EST Height 165.1 cm (5' 5 ) 10/20/2020 12:00 PM EST Body Mass Index 44.1 10/20/2020 12:00 PM EST Plan of Treatment Health Maintenance Due Date Last Done Comments CT Colonography 1979 Colonoscopy 1980 FIT-DNA 1979 FIT 1979 Sigmoidoscopy 1979 Pap Smear 11/27/2000 Mammogram 04/24/2021 04/24/2020 Colorectal Cancer Screening 05/11/2024 FOBT 05/11/2024 05/11/2023 Influenza Vaccine (#1) 2025 , 06/26/2020, 07/09/2018, Additional history exists Cervical Cancer Screening 05/18/2028 HPV/Cotest 05/18/2028 05/18/2023 Insurance BCBS Care Teams Mold Cleaning And Storage Supervisor Relationship Specialty Start Date End Date Afshin Mclean MD PCP - General Family Medicine 10/23/23
--- OUTSIDE RECORDS SUMMARY | 2025-04-09 23:32 | XMS_ITS | Encounter Summary ---
Author Organization [employer] Address [id number] [address] [place] [address] Care Team Providers Care Transport Analyst Name Role Phone Eric Malave MD Primary Care Provider [phone] Encounter Details Date Type Department Care Team ([facility] st Contact Info) Description 07/[facility]2024 [facility] [address] [place] [address] Afshin Mclean MD [address]. Provider retired 12/16/24 [place], [place] [phone] Social History Tobacco Use Types Packs/Day Years [...] encounter Miscellaneous Notes * Telephone Encounter - Afshin Mclean MD - 07/15/2024 3:54 PM EDT ----- Message from LILLI Chopra sent at 07/15/2024 3:38 PM EDT ----- Patient notified of test results and verbalizes understanding. Patient would [facility] referral to [facility] documented in this encounter Plan of Treatment Upcoming Encounters Date Type Department Care Team (Late st Contact Info) Description 06/08/2025 9:30 AM EDT Office Visit [facility] [address] [place] [address] Eric Malave MD [address] [place] [address] documented as of this encounter Goals [...] documented as of this encounter Care Teams Transport Analyst Relationship Specialty Start Date End Date Eric Malave MD [address] [place] [address] PCP - General Internal Medicine 02/13/25 documented as of this encounter
--- OUTSIDE RECORDS SUMMARY | 2025-04-09 23:32 | XMS_ITS | Encounter Summary ---
Author Organization [employer] [facility] tem Address [id number] [address] [place] [address] Care Team Providers Care Box Truck Driver Name Role Phone Eric Malave MD Primary Care Provider [phone] Encounter Details Date Type Department Care Team (Late Contact Info) Description 01/24/2021 [facility] [address] [place] [phone] External, Scanning Provider Social History Tobacco Use [...] Encounters Date Type Department Care Team (Late Contact Info) Description 06/08/2025 9:30 AM EDT Office Visit [facility] [address] [place] [address] Eric Malave MD [address] [place] [address] [phone] documented as of this encounter Procedures Procedure Name Priority Date/Time Associated Diagnosis Comments DIABETES EYE EXAM Routine 01/24/2021 documented in this encounter Results * DIABETES EYE EXAM (01/24/2021) 01/24/2021 us Scanning Provider External HEALTH MAINTENANCE Fi [...] documented as of this encounter Care Teams Box Truck Driver Relationship Specialty Start Date End Date Eric Malave MD [address] [place] [address] PCP - General Internal Medicine 02/13/25 documented as of this encounter
--- OUTSIDE RECORDS SUMMARY | 2025-04-09 23:32 | XMS_ITS | Encounter Summary ---
Author Organization [facility] Address [address] [place] [address] Care Team Providers Care Tier In Name Role Phone arron Afshin Gavin Primary Care Provider [phone] [phone] Teddy Diehl RN Unavailable Unavailable Kimberly Madrigal RN Unavailable Unavailable Source Comments In the event this information is protected by the Federal Confidentiality of Alcohol and Drug AbusePatient Records regulations: The Federal rules restrict any use of the information to criminally investigate or prosecute any alcohol or drug abuse patient.[facility] Encounter Details Date Type Department Care Team (Late st Contact Info) Description 01/13/2025 [place] [address] Provider, Ccf Important information about your scheduled Allergy and Immunology appointment Social History Tobacco Use Types Packs/Day Years Used Date Smoking Tobacco: Former Cigarettes Smokeless Tobacco: Never Alcohol Use Standard Drinks/Week Comments Not Currently 0 (1 standard drink = 0.6 oz pur e alcohol) [facility] Utilities Answer Date Recorded In the [...] were you homeless or living in a fpc (including now)? No 08/11/2024 Area Deprivation Index Answer Date Justin rded National Score (1-100), lower number is lower ri sk 88 05/17/2023 State Score (1-10), lower number is lower risk 8 05/17/2023 Data from: https://www.neighborhoodatlas.medicine.[facility].edu/. Last address used for calculation [address] [facility] 05/17/2023 Comments No Sex and Gender Information [...] AM EDT Office Visit Transplant Center [address] [address] Clinic, Kidney Txp [address] [place] [address] Kid Txp - follow up appointment in Transplant clinic on 05/06/2025 documented as of this encounter Visit Diagnoses Not on filedocumented in this encounter Care Teams Tier In Relationship Specialty Start Date End Date Afshin Chao [address] [place] [address] PCP - General Family Medicine 05/14/23 Teddy Diehl, RN Registered Nurse Transplant Center 06/29/23 Kimberly Madrigal, RN Registered Nurse Transplant Center 03/12/25 YAIR Muniz [facility] Community Resource 06/07/23 documented as of this encounter
--- OUTSIDE RECORDS SUMMARY | 2025-04-09 23:32 | XMS_ITS | Encounter Summary ---
Author Organization [facility] Address [address] [place] [address] Care Team Providers Care Elevator Constructor Name Role Phone ChaoAfshin Primary Care Provider [phone] Teddy Diehl RN Unavailable Unavailable Kimberly Madrigal RN Unavailable Unavailable Source Comments In the event this information is protected by the Federal Confidentiality of Alcohol and Drug AbusePatient Records regulations: The Federal rules restrict any use of the information to criminally investigate or prosecute any alcohol or drug abuse patient.[facility] Encounter Details Date Type Department Care Team (Late st Contact Info) Description 01/22/2025 Patient Msg Transplant Center [address] [place] [place] [id number] Provider, Ccf Upcoming [facility] for Transplant Recipients & Donor Families Social History Tobacco Use Types Packs/Day Years Used Date Smoking Tobacco: Former Cigarettes Smokeless Tobacco: Never Alcohol Use Standard Drinks/Week Comments Not Currently 0 (1 standard drink = 0.6 oz pur e alcohol) [facility] Utilities Answer Date Recorded In the past [...] any time in the past 12 m [facility], were you homeless or living in a snf (including now)? No 08/11/2024 Area Deprivation Index Answer Date Justin rded National Score (1-100), lower number is lower ri sk 88 05/17/2023 State Score (1-10), lower number is lower risk 8 05/17/2023 Data from: https://www.neighborhoodatlas.medicine.[facility].edu/. Last address used for calculation [address] [facility] 05/17/2023 Comments No Sex and Gender [...] AM EDT Office Visit Transplant Center [address] [address] Clinic, Kidney Txp [address] [place], [place] [id number] Kid Txp - follow up appointment in Transplant clinic on 05/06/2025 documented as of this encounter Visit Diagnoses Not on filedocumented in this encounter Care Teams Elevator Constructor Relationship Specialty Start Date End Date Afshin Chao [address] [place] [address] PCP - General Family Medicine 05/14/23 Teddy Diehl, RN Registered Nurse Transplant Center 06/29/23 Kimberly Madrigal, MINAL Registered Nurse Transplant Center 03/12/25 YAIR Muniz [facility] Community Resource 06/07/23 documented as of this encounter
--- OUTSIDE RECORDS SUMMARY | 2025-04-09 23:32 | XMS_ITS | Encounter Summary ---
Author Organization [facility] Address [facility] [place] [address] Care Team Providers Care Process Safety Specialist Name Role Phone ChaoAfshin Primary Care Provider [phone] Teddy Diehl RN Unavailable Unavailable Kimberly Madrigal RN Unavailable Unavailable Source Comments In the event this information is protected by the Federal Confidentiality of Alcohol and Drug AbusePatient Records regulations: The Federal rules restrict any use of the information to criminally investigate or prosecute any alcohol or drug abuse patient.[facility] Encounter Details Date Type Department Care Team (Late st Contact Info) Description 08/29/2024 Patient Msg Angio [address] [place] [address] Provider, Ccf Pre procedure instructions 09/01 Social History Tobacco Use Types Packs/Day Years Used Date Smoking Tobacco: Former Cigarettes Smokeless Tobacco: Never Alcohol Use Standard Drinks/Week Comments Not Currently 0 (1 standard drink = 0.6 oz pur e alcohol) [facility] Utilities Answer Date Recorded In [...] any time in the past 12 m [facility], were you homeless or living in a alf (including now)? No 08/11/2024 Area Deprivation Index Answer Date Justin rded National Score (1-100), lower number is lower ri sk 88 05/17/2023 State Score (1-10), lower number is lower risk 8 05/17/2023 Data from: https://www.neighborhoodatlas.medicine.[facility].edu/. Last address used for calculation [address] [facility] 05/17/2023 Comments No Sex and Gender Information [...] AM EDT Office Visit Transplant Center [address] [address] Clinic, Kidney Txp [address] [place] [address] Kid Txp - follow up appointment in Transplant clinic on 05/06/2025 documented as of this encounter Visit Diagnoses Not on filedocumented in this encounter Care Teams Process Safety Specialist Relationship Specialty Start Date End Date Afshin Chao [address] [place] [address] PCP - General Family Medicine 05/14/23 Teddy Diehl, RN Registered Nurse Transplant Center 06/29/23 Kimberly Madrigal, RN Registered Nurse Transplant Center 03/12/[address] [facility] Community Resource 06/07/23 documented as of this encounter
--- OUTSIDE RECORDS SUMMARY | 2025-04-09 23:32 | XMS_ITS | Encounter Summary ---
Author Organization [facility] Address [address] [place] [address] Care Team Providers Care Retail Stocker Name Role Phone arron Afshin Gavin Primary Care Provider [phone] Teddy Diehl RN Unavailable Unavailable Kimberly Madrigal RN Unavailable Unavailable Source Comments In the event this information is protected by the Federal Confidentiality of Alcohol and Drug AbusePatient Records regulations: The Federal rules restrict any use of the information to criminally investigate or prosecute any alcohol or drug abuse patient.[facility] Encounter Details Date Type Department Care Team (Late st Contact Info) Description 07/20/2023 Lab Requisition [facility] [place] [address] [place] [address] [place], [place] [id number] Social History Tobacco Use Types Packs/Day Years Used Date Smoking Tobacco: Former Cigarettes Smokeless Tobacco: Never Alcohol Use Standard Drinks/Week Comments Not Currently 0 (1 standard drink = 0.6 oz pur e alcohol) Area Deprivation Index Answer Date Justin rded National Score (1-100), lower number is lower ri sk 88 05/17/2023 State Score (1-10), lower number is lower risk 8 05/17/2023 Data from: https://www.neighborhoodatlas.[facility]/. Last address used for calculation [address] 05/17/2023 Comments No Sex and Gender Information Value Date Recorded Sex Assigned at Not on file Legal Sex Female 2:40 AM EDT Gender Identity Not on file Sexual Orientation Not on file documented as of this encounter Plan of Treatment Upcoming Encounters Date Type Department Care Team (Late st Contact Info) Description 05/06/2025 11:00 AM EDT Office Visit Transplant Center [address] [address] Clinic, Kidney Txp [address] [place], [place] [id number] Kid Txp - follow up appointment in Transplant clinic on 05/06/2025 documented as of this encounter Procedures Procedure Name Priority Date/Time Associated Diagnosis Comments RED BLOOD CELLS, ADULT Routine 07/20/2023 2:20 PM EDT TYPE + SCREEN Routine 07/20/2023 11:49 AM EDT documented in this encounter Results * RED BLOOD CELLS, ADULT (07/20/2023 2:20 PM EDT) XM RESULT Compatible [facility]LOOD [facility] Expiration Date [facility] Product Expiration Date 08/27/2023 23:59 [facility] ISBT Blood Type 5100 [facility]LO[facility] Unit Blood Type O Pos [facility] Unit Number [id number] [facility] BLOOD [facility] Status Information Issued Final [facility]LOOD [facility] Product Identification Red Blood Cells [facility] Product Code [id number] [facility]LOOD [facility] XM RESULT Compatible [facility]LOOD [facility] Expiration Date [facility]LOOD [facility] Product Expiration Date 08/27/2023 23:59 [facility]LOOD [facility] ISBT Blood Type 5100 [facility]LOOD [facility] Unit Blood Type O Pos [facility]LOOD [facility] Unit Number [id number] [facility] M AIN BLOOD B[facility] Status Information Issued Final [facility]LOOD [facility] Product Identification Red Blood Cells [facility]LOOD [facility] Product Code [id number] [facility]LOOD [facility] Issue Date/Time [id number] [facility]LOOD [facility] Issue Date/Time [id number] MAIN BLOOD BANK 07/20/2023 2:20 PM EDT [facility] PR[facility] Final Result Performing Organization Address [facility] de Phone Number CC MAIN BLOOD BANK [address] [place] [id number], * TYPE + SCREEN (07/20/2023 11:49 AM EDT) ABO O 07/20/2023 2:15 PM EDT [facility]LO[facility] Rh(D) Positive 07/20/2023 2:15 PM EDT [facility] Antibody Screen Negative 07/20/2023 2:15 PM EDT [facility]LO[facility] Type and Screen Expiration 07/23/2023 23:59 07/20/2023 2:15 PM EDT [facility]LOOD [facility] HIstorical Ab Scr Status NEGATIVE 07/20/2023 2:15 PM EDT [facility]LOOD [facility] Blood BLOOD SPECIMEN / Unknown 07/20/2023 11:49 AM EDT 07/20/2023 12:59 PM EDT [facility] Final Result Performing Organization Address [facility] de Phone Number MAIN BLOOD BANK [address] [place] [address], documented in this encounter Visit Diagnoses Not on filedocumented in this encounter Additional Health Concerns Infection Onset Date Last Indicated Resolved Time COVID-19 Rule-Out 07/23/2023 07/23/2023 07/23/2023 2:25 AM EST Respiratory Rule-Out 07/23/2023 07/23/2023 023 2:25 AM EST COVID-19 Confirmed 07/23/2023 07/23/2023 8:51 PM EST documented as of this encounter Care Teams Retail Stocker Relationship Specialty Start Date End Date Afshin Chao [address] [place] [address] PCP - General Family Medicine 05/14/23 Teddy Diehl, RN Registered Nurse Transplant Center 06/29/23 Kimberly Madrigal, RN Registered Nurse Transplant Center 03/12/25 YAIR [facility] Community Resource 06/07/23 documented as of this encounter
--- OUTSIDE RECORDS SUMMARY | 2025-04-09 23:32 | XMS_ITS | Encounter Summary ---
Author Organization [employer] Address [id number] [address] [place] [address] Care Team Providers Care Chief Radiation Therapist Name Role Phone Eric Malave MD Primary Care Provider [phone] Reason for Visit * Reason Onset Date Comments Med Refill 11/07/2018 Encounter Details Date Type Department Care Team ([facility] Contact Info) Description 11/07/2018 Refill [facility] [address] [place] [phone] Keysha Calderon LPN Social History Tobacco Use Types Packs/Day Years Used Date Smoking Tobacco: Former Cigarettes Smokeless Tobacco: Never Comments:quit 05/2018 occasio nal cigarette 2 per week Alcohol Use Standard Drinks/Week Comments Yes 1 (1 standard drink = 0.6 oz pur e alcohol) PHQ-2 Answer Date Recorded PHQ-2 Score 0 09/06/2018 Comments No Sex and Gender Information Value Date Recorded Sex Assigned at Female 02/15/2025 1:29 PM EDT Legal Sex Female 11:25 AM EDT Gender Identity Female 02/15/2025 1:29 PM EDT Sexual Orientation Choose not to disclose 2024 1:29 PM EDT documented as of this encounter Plan of Treatment Upcoming Encounters Date Type Department Care Team ([facility] Contact Info) Description 06/08/2025 9:30 AM EDT Office Visit [facility] [address] [place] [phone] Eric Malave MD [address] [place] [address] documented as of this encounter Visit Diagnoses Not on filedocumented in this encounter Additional Health Concerns Infection Onset Date Last Indicated Resolved Time COVID-19 Rule-Out 07/05/2021 07/05/2021 07/06/2021 5:20 PM EDT Enteric Rule-Out 09/05/2023 09/05/2023 09/12/2023 11:12 PM EST Assessment Noted Time PHQ-9 Depression Total Score: 0 08/14/20 18 10:00 AM EST A Body Mass Index follow-up plan has been documented for the patient 08/14/2018 10:39 AM EST documented as of this encounter Care Teams Chief Radiation Therapist Relationship Specialty Start Date End Date Eric Malave MD [address] [place] [address] PCP - General Internal Medicine 02/13/25 documented as of this encounter
--- OUTSIDE RECORDS SUMMARY | 2025-04-09 23:33 | XMS_ITS | Encounter Summary ---
Author Organization [employer] Address [id number] [address] [place] [address] Care Team Providers Care Drawer In Jacquard Loom Name Role Phone Eric Malave MD Primary Care Provider [phone] Encounter Details Date Type Department Care Team (Late st Contact Info) Description 10/02/2022 Telephone [facility] [address] [place] [phone] Keysha Calderon LPN Social History Tobacco Use [...] 12/2018 PHQ-2 Answer Date Recorded Total Score 8 09/15/2022 Childcare Answer Date Recorded Childcare Unknown 02/24/2019 [...] have Coronavirus / COVID-19? No / Unsure 09/15/2022 10:55 AM EST documented as of this encounter Miscellaneous Notes * Telephone Encounter - Keysha Calderon LPN - 10/02/2022 1:01 PM EST Patient wants to change her Novolog Insulin to the Novolog Pens 7 units tid. [facility] * Telephone Encounter - Afshin Mclean MD - 10/02/2022 1:01 PM EST done documented in this encounter Plan of Treatment Upcoming Encounters Date Type Department Care Team (Late st Contact Info) Description 06/08/2025 9:30 AM EDT Office Visit [facility] [address] [place] [phone] Eric Malave MD [address] [place] [address] documented as of this encounter Visit Diagnoses Not on filedocumented in this encounter Additional Health Concerns Infection Onset Date Last Indicated Resolved Time Enteric Rule-Out 09/05/2023 09/05/2023 09/12/2023 11:12 PM EST Assessment Noted Time PHQ-9 Depression Total Score: 8 09/15/20 7:00 AM EST A Body Mass Index follow-up plan has been documented for the patient 12/19/2018 3:58 PM EDT documented as of this encounter Care Teams Drawer In Jacquard Loom Relationship Specialty Start Date End Date Eric Malave MD [address] [place] [address] PCP - General Internal Medicine 02/13/25 documented as of this encounter
--- OUTSIDE RECORDS SUMMARY | 2025-04-09 23:33 | XMS_ITS | Encounter Summary ---
Author Organization [facility] Address [address] [place] [address] Care Team Providers Care Painting Contractor Name Role Phone ChaoAfshin Primary Care Provider [phone] Teddy Diehl RN Unavailable Unavailable Kimberly Madrigal RN Unavailable Unavailable Source Comments In the event this information is protected by the Federal Confidentiality of Alcohol and Drug AbusePatient Records regulations: The Federal rules restrict any use of the information to criminally investigate or prosecute any alcohol or drug abuse patient.[facility] Encounter Details Date Type Department Care Team (Late st Contact Info) Description 06/26/2024 Patient Msg Transplant Center [address] [phone] Provider, Ccf Liver Transplant Night with [facility] - Virtual Event Social History Tobacco Use Types Packs/Day Years Used Date Smoking Tobacco: Former Cigarettes Smokeless Tobacco: Never Alcohol Use Standard Drinks/Week Comments Not Currently 0 (1 standard drink = 0.6 oz pur e alcohol) PHQ-2 Answer Date Recorded PHQ-2 score 0 01/02/2024 Area Deprivation Index Answer Date Justin rded National Score (1-100), lower number is lower ri sk 88 05/17/2023 State Score (1-10), lower number is lower risk 8 05/17/2023 Data from: https://www.neighborhoodatlas.medicine.[facility]/. Last address used for calculation [address] [...] AM EDT Office Visit Transplant Center [address] [address] Clinic, Kidney Txp [address] [place] [address] Kid Txp - follow up appointment in Transplant clinic on 05/06/2025 documented as of this encounter Visit Diagnoses Not on filedocumented in this encounter Care Teams Painting Contractor Relationship Specialty Start Date End Date Afshin Chao [address] [place] [address] PCP - General Family Medicine 05/14/23 Teddy Diehl, RN Registered Nurse Transplant Center 06/29/23 Kimberly Madrigal, RN Registered Nurse Transplant Center 03/12/25 YAIR [facility] Community Resource 06/07/23 documented as of this encounter
--- OUTSIDE RECORDS SUMMARY | 2025-04-09 23:33 | XMS_ITS | Clinical Summary ---
Author Organization [facility] Address [address] [place] [id number] Care Team Providers Care Test Center Manager Name Role Phone Chao Afshin Ugarte Primary Care Provider [phone] Teddy Diehl RN Unavailable Unavailable Kimberly Madrigal RN Unavailable Unavailable Allergies Active Allergy Reactions Criticality Noted Date Comments Adhesive Tape-Silicones Intolerance 05/25/2023 Pt. endorses intolerance to adhesive telemetry adhesives Lisinopril Swelling High 05/14/2023 Medications * This document contains information received from the source organization and may not represent a complete record from that organization. aspirin 81 mg chewable tablet Take 1 tablet by mouth once daily. 30 tablet 11 09/19/19 24 Active Additional Information Patient taking differently:81 mg ORAL DAILY,Patient reports not consistently taking, Reason: Other (per patient report not consistently taking), Reported on 09/16/[address] (PROTONIX) 40 mg tablet Take 1 tablet by mouth two times a day before meals at 6 am and 4 pm. 60 tablet 3 09/19/19 24 Active escitalopram oxalate (LEXAPRO) 5 mg tablet Take 1 tablet by mouth once daily. 01/02/20 24 Active blood sugar diagnostic (TRUE METRIX GLUCOSE TEST STRIP) test strip Use with blood glucose test three times a day. Insulin Dep? Yes 50 Each 2 4 2:25 PM EST 07/28/20 24 Active Lancets Use with blood glucose test three times a day. Insulin Dep? Yes 100 Each 2 4 2:25 PM EST 07/28/20 24 Active ursodiol (ACTIGALL) 300 mg capsule Take 1 capsule by mouth two times a day. 08/12/20 24 Active sulfamethoxazole-t rimethoprim (BACTRIM) 400-80 mg per tabletIndications: 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),High risk medication use Take 1 tablet by mouth once daily. 90 tablet 3 5 8:42 AM EDT 08/19/20 24 Active mycophenolate mofetil (CELLCEPT) 250 mg capsuleIndications :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),Immunosuppre ssed status (HCC) Take 3 capsules by mouth two times a day. 180 capsule 11 09/16/20 24 Active predniSONE (DELTASONE) 5 mg tabletIndications: 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),Immunosuppre ssed status ([facility]) Take 1 tablet by mouth once daily. 90 tablet 3 09/27/19 25 Active SITagliptin phosphate (JANUVIA) 100 mg tabletIndications: Type 2 diabetes mellitus with hyperglycaemia ([facility]) Take 1 tablet by mouth once daily. 90 tablet 10/03/19 25 Active metoprolol succinate ER (TOPROL XL) 25 mg 24 hr tabletIndications: 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),Hypertension , unspecified type Take 1 tablet by mouth once daily. 90 tablet 3 12/10/19 25 Active tacrolimus IR (PROGRAF) 1 mg capsuleIndications :Immunosuppressed status (HCC),Transplanted kidney (HCC) Take 7 capsules by mouth two times a day. Take 12 hours apart 420 capsule 11 02/04/20 25 Active ergocalciferol 50,000 unit capsule (VITAMIN D2, DRISDOL)Indication s:Vitamin D deficiency Take 1 capsule by mouth one time a week. 12 capsule 04/06/20 25 Active Active Problems Patient Care Coordination No te Formatting of this note is d ifferent from the original. Indication for MICU Admission: CRRT and higher MAP goal for HRS Significant PMH/PSH: - Kirsten-en-Y bypass in 2019 - Hypertension - T2DM - REGINALD - GERD - Pulmonary hypertension - Anemia chronic disease - Recent diagnosis of alcoholic cirrhosis (December 2022) - Recent MICU admission 05/22 - 05/23 for NADER due to HRS requiring pressors Hospital Course: Originally presented to [facility] on 05/14 for a liver transplant eval after months of worsening malaise/weakness, mental fog, and jaundice. Hospital course complicated by acute anemia with no overt signs of bleeding (received 3 units), along with worsening NADER despite albumin challenge. Kidney fnc continued to decline with appropriate MAP. She transferred from hepatology service 05/25 for worsening NADER and need to start pressors per nephrology recommendations. Primary hepatology team noted decreased urine output (150 cc) over the previous 24 hours and worsening NADER (creatinine 3.09, with baseline 0.5-1.0 prior to initial hospital admission on 05/14. After discussion with nephrology, decision was made to transfer patient to [facility] in order to reinitiate pressors to augment renal blood flow. Upon arrival to [facility], patient was in no acute distress and satting 100% SPO2 on room air. She was started on CRRT on 05/26. Significant New Events Past 24 hrs: One pRBC for Hgb of 6.7 A/P of Major Active Problems: NEURO #Hepatic encephalopathy - resolved -No acute concerns. A&O x3 with no focal neurodeficits - Evidence of hepatic encephalopathy earlier this hospital course, with elevated ammonia 58 and altered mental status. -But mental status has improved back to baseline Plan: - lactulose 20 g TID and rifaximin 550 mg BID RESP # REGINALD # Pulmonary hypertension -History of REGINALD but patient does not wear CPAP at home. -05/15/2023 echo with estimated RVSP of 48 mmHg, consistent with mild pulmonary hypertension. - Brief respiratory distress while receiving blood transfusion 05/17, subsequent CXR with pleural effusion but resolved after lasix. - Does not appear to be in respiratory distress, no complaints of shortness of breath, SPO2 98-100% on room air. CXR with no signs of pleural effusion. Plan: - Encourage CPAP use at night - Monitor oxygenation CV #Hypertension - Home regimen: valsartan 320 mg and lopressor 25 daily Lopressor changed to propanolol at OSH due to cirrhosis - Valsartan held due to NADER - Systolic BPs run in the low 100s, with occasional lightheadedness. -MAPS have been in the 75-85 range Plan: - Patient continue to hold home valsartan - Discontinue midodrine - continue to hold propanolol ID -From initial presentation on 05/14 to 05/21, no evidence of leukocytosis. - ID consulted on 05/18 and 05/22 as part of pre liver transplant evaluation: No CI from transplant, recommended Shingrix vaccine. No mention of leukocytosis or concern for infection in either note. -Has remained afebrile and on room air since arrival to MICU. - Negative blood TB 05/18 -05/25 UA: Dark yellow and cloudy, 1+ bilirubin, 1+ protein, negative nitrite/leuk esterase, 3-5 RBCs - Urine culture showed enterobacter clocae - Negative nasal Staph aureus - WBC worsening from 21 from 18 - Blood cultures are negative - Afebrile - WBC 18.75 Plan: - Follow up blood culture GI #Decompensated alcohol related cirrhosis #GERD #Kirsten-en-Y bypass 2018 -Months of fatigue, weakness, abdominal distention, bilateral lower extremity edema, easy bruising, nausea/emesis, dyspnea on exertion, with scleral icterus and jaundice later presenting. - Diagnosed with fatty liver disease in October 2022. Later diagnosed with liver cirrhosis on imaging in December 2022 without a liver biopsy. She had an EGD/colonoscopy in December 2022, was found to have ulcers, 5 polyps which were removed - Started drinking at age 13, last drink was originally August 2022, but then relapsed in December 2022. -Presented from outside hospital for acute decompensation of cirrhosis due to acute anemia and liver transplant evaluation. -US ascites survey on 05/15 without adequate pocket for paracentesis. Attempted paracentesis on 05/24 but was not completed due to no identifiable fluid pocket. - LVUS 05/15 patent hepatic vasculature with appropriately directed flow. Coarse hepatic echotexture without other changes of cirrhosis - EGD 05/17/2023 showed no signs of varices or active bleeding. Patent Kirsten-en-Y anastomosis. -Currently undergoing liver transplant evaluation via multiple consulting services. -Multiple small BMs recently with no blood present - Breast exam was completed yesterday MELD 3.0: 30 at 05/30/2023 11:48 PM MELD-Na: 28 at 05/30/2023 11:48 PM Calculated from: Serum Creatinine: 1.59 mg/dL at 05/30/2023 11:48 PM Serum Sodium: 139 mmol/L (Using max of 137 mmol/L) at 05/30/2023 11:48 PM Total Bilirubin: 9.0 mg/dL at 05/30/2023 11:48 PM Serum Albumin: 2.7 g/dL at 05/30/2023 11:48 PM INR(ratio): 2.1 at 05/30/2023 11:48 PM Age at listin years Sex: Female at 05/30/2023 11:48 PM Plan: - Continue liver transplant evaluation, patient will be receiving RHC on Sunday, 05/30 AM - Octreotide d/c'd - Continue bowel regimen: Rifaximin, lactulose, MiraLAX - Folic acid 1mg daily NUTRITION RENAL/LYTES #Oliguric NADER #NAGMA -Baseline creatinine 0.5-1.0 prior to admission 05/14 - Creatinine on initial presentation 2.43 and continued to increase in subsequent days. - 05/15 US kidney with no hydronephrosis - 05/15: Urine sodium less than 20, urine osmolality 386 - Received 2 days of albumin challenge (05/15, 05/16) along with octreotide. Creatinine continued to increase despite this. Nephro consulted at this time and suggested etiology being either prerenal or HRS. - Transferred to ICU on 05/22 for Levophed versus terlipressin initiation in order to increase her maps and augments renal blood flow. Patient briefly started on Levophed, but was able to achieve maps of >70 with just midodrine. -Transferred back to our neph on 05/23, but even with maps >70, creatinine continues to increase, currently 3.08. - Patient has decreased urine output over the last few days -Nephrology evaluation 05/25 suggest multifactorial etiology of HRS in setting of decompensated cirrhosis along with acute anemia. Suggested increased MAP goal in order to augment renal blood flow with the help of Levophed. - Persistent NAGMA with bicarb as low as 12, currently 14. Multifactorial in setting of NADER and GI losses from BM - Electrolytes stable: mag 1.9, Phos 3.9, Na 137, K 5.0 - Nephrology saw the patient, they agree that patient likely needs CRRT - CRRT UF rate at 250 Plan: - Patient has tunneled dialysis catheter for continuation of CRRT with UF 250; approaching euvolemia - Continue peripheral levo with MAP goals 65-70 - Fluid restriction - D/c'd bicarb supplementation HEME #Acute blood loss anemia #Anemia of chronic disease - Initial Hgb 7.5 on day on presentation 05/14. - 05/14/23: Iron 84, TIBC <101, Tsat >83.2, ferritin 911, haptoglobin 11, suggestive of anemoa of chronic disease - 05/16, Hgb continues to drop until it reached 5.6. Received 3 units pRBCs and had appropriate response with Hgb 8.6. No overt signs of bleeding. - Smear mentioning fragments of RBC, but otherwise unremarkable - EGD 05/17/2023 showed no signs of varices or active bleeding. - Hgb has remained stable during hospital stay. Currently 8.0 Patient continues to deny overt signs of bleeding Plan: - Transfuse if Hgb <7 MSK # Rash and Nonspecific Skin eruption - Evaluated by dermatology, concern for diffuse eczematous rash with suspicion for acrodermatitis enteropathica - 05/25 Zinc level 15 Plan: - triamcinolone acetonide 0.1% ointment to affected areas - start hydrocortisone 2.5% ointment to face, groin, armpits BID PRN - zinc supplementation ENDO #T2DM - Home regimen : metformin and Novolog 7 units TID with meals - 05/14 A1C 4.3% Plan: -MICU SSI Barriers to transfer out of MICU: CRRT Problem Noted Date Diagnosed Date Iron deficiency anemia 08/11/2024 Insulin dose changed 08/09/2024 Staph aureus infection 08/08/2024 Obesity, Class I, BMI 30-34.9 07/27/2024 Type 2 diabetes mellitus with hyperglycemia 07/18 Hypokalemia 07/27/2024 Hypotension due to hypovolemia 07/25/2024 Immunosuppressive management encounter following kidney transplant 07/25/2024 Encounter for aftercare following kidney transpl ant 07/25/2024 -donor kidney transplant 07/24/2024 ESRD (end stage renal disease) 07/30/2023 Fungus present in urine 07/28/2023 Assessment & Plan (07/29/2023 5:16 PM EST): 07/22 UA : +250 LE 07/22 UCX: >100 K yeast (done via straight cath) Patient is asymptomatic for UTI, makes very little urine So symptoms of vaginal yeast infection Plan Discussed with Dr. Dailey, no need to treat given no symptoms of UTI or vaginal yeast infecton Assessment & Plan (07/29/2023 2:13 PM EST): 07/22 UA : +250 LE 07/22 UCX: >100 K yeast (done via straight cath) Patient is asymptomatic for UTI, makes very little urine Plan Will discuss with ID Assessment & Plan (07/28/2023 1:23 PM EST): 07/22 UA : +250 LE 07/22 UCX: >100 K yeast (done via straight cath) Patient is asymptomatic for UTI, makes very little urine Plan Will discuss with ID Immunosuppressive management encounter following liver transplant 07/24/2023 Assessment & Plan (07/30/2023 4:46 PM EST): Assessment: Flow Cytometry T and B Cell crossmatches negative Donor Specific Antibody detected to B44. Current IS: FK 4 mg BID FK level:10.9 Plan: -continue tacrolimus 4 mg BID -Daily FK level -Myfortic on hold d/t Covid Assessment & Plan (07/29/2023 2:08 PM EST): Assessment: Flow Cytometry T and B Cell crossmatches negative Donor Specific Antibody detected to B44. Current IS: FK 5 mg BID FK level: 13 Plan: -hold dose of tacrolimus tonight and start 4/4 tomorrow -Daily FK level -Myfortic on hold d/t Covid Assessment & Plan (07/28/2023 1:17 PM EST): Assessment: Flow Cytometry T and B Cell crossmatches negative Donor Specific Antibody detected to B44. Current IS: FK 6 mg BID FK level: 12 Plan: -Decrease tacrolimus to 5/5 -Daily FK level -Myfortic on hold d/t Covid Assessment & Plan (07/27/2023 2:26 PM EST): Assessment: Flow Cytometry T and B Cell crossmatches negative Donor Specific Antibody detected to B44. Current IS: FK 6 mg BID FK level: 11.5 Plan: -Continue FK 6 mg BID -Daily FK level -Myfortic on hold d/t Covid Assessment & Plan (07/26/2023 3:41 PM EST): Assessment: Flow Cytometry T and B Cell crossmatches negative Donor Specific Antibody detected to B44. Current IS: FK 6 mg BID FK level: 10.1 Plan: -Continue FK 6 mg BID -Daily FK level -Myfortic on hold d/t Covid Assessment & Plan (07/25/2023 3:13 PM EST): Assessment: Flow Cytometry T and B Cell crossmatches negative Donor Specific Antibody detected to B44. Current IS: FK 6 mg BID FK level: 12.2 Plan: -Continue FK 6 mg BID -Daily FK level -Myfortic on hold d/t Covid Assessment & Plan (07/24/2023 3:32 PM EST): Assessment: Flow Cytometry T and B Cell crossmatches negative Donor Specific Antibody detected to B44. Current IS: FK 6 mg BID FK level: in process Plan: -FK on hold d/t elevated level yesterday (not true trough) -Daily FK level -Myfortic on hold d/t Covid COVID 07/23/2023 Assessment & Plan (07/30/2023 4:45 PM EST): Assessment: Patient admitted from [place] with reported fever, weakness, COVID positive Patient reports feeling OK - reports previous small cough and runny nose. Continues with no resp complaints, satting well on RA Plan: -Txp ID following, appreciate recs. Completed course of Remdesevir (last dose 07/25). Assessment & Plan (07/29/2023 2:07 PM EST): Assessment: Patient admitted from [place] with reported fever, weakness, COVID positive Patient reports feeling OK - reports previous small cough and runny nose. Continues with no resp complaints, satting well on RA Plan: -Txp ID following, appreciate recs. Completed course of Remdesevir (last dose 07/25). Continue dapto/zosyn while awaiting cultures from abd collection that was aspirated on 07/26 Assessment & Plan (07/28/2023 1:14 PM EST): Assessment: Patient admitted from [place] with reported fever, weakness, COVID positive Patient reports feeling OK - reports previous small cough and runny nose. Continues with no resp complaints, satting well on RA Plan: -Txp ID following, appreciate recs. Completed course of Remdesevir (last dose 07/25). Continue dapto/zosyn while awaiting cultures from abd collection that was aspirated on 07/26 Assessment & Plan (07/27/2023 2:25 PM EST): Assessment: Patient admitted from [place] with reported fever, weakness, COVID positive Patient reports feeling OK - reports previous small cough and runny nose. Continues with no resp complaints, satting well on RA Plan: -Txp ID following, appreciate recs. Completed course of Remdesevir (last dose 07/25). Continue dapto/zosyn while awaiting cultures from abd collection that was aspirated on 07/26 Assessment & Plan (07/26/2023 3:40 PM EST): Assessment: Patient admitted from [place] with reported fever, weakness, COVID positive Patient reports feeling OK - reports previous small cough and runny nose. Continues with no resp complaints, satting well on RA Plan: -Txp ID following, appreciate recs. Completed course of Remdesevir (last dose 07/25). Will start dapto/zosyn while awaiting cultures from abd collection that was aspirated this AM Assessment & Plan (07/25/2023 3:12 PM EST): Assessment: Patient admitted from [place] with reported fever, weakness, COVID positive Patient reports feeling OK - reports previous small cough and runny nose. Continues with no resp complaints, satting well on RA Plan: -Txp ID following, appreciate recs. Complete course of Remdesevir (last dose today 07/25) Assessment & Plan (07/24/2023 3:29 PM EST): Assessment: Patient admitted from [place] with reported fever, weakness, COVID positive Patient reports feeling OK today- reports previous small cough and runny nose. Otherwise no resp complaints, satting well on RA Plan: -Txp ID following, appreciate recs. Complete course of Remdesevir Liver transplant recipient 07/23/2023 Assessment & Plan (07/30/2023 4:46 PM EST): Assessment: 06/02/23-DBD-OLT (organox perfusion), piggyback, dCHA (GDA patch) - rCHA (left/right KING patch), Main PV - Main PV, [id number] CT abdomen 07/08-small to moderate bilateral pleural effusions with right lower lobe consolidative airspace opacities and mild atelectasis/infiltrate. diffusely fatty and mildly heterogeneous transplant liver, small right posterior subcapsular fluid and mild perihepatic ascites, diffuse subcutaneous emphysema along the midline abdominal wall incision extending to the 2.5cm right mid anterolateral abdominal wall subcutaneous air fluid collection medial to the skin guzman, 7.8 X 2.4 X 5.5 CM right mid lateral abdominal wall fluid collection. diffuse soft tissue anasarca of the abdomen and pelvic side aguilar -->patient followed by ID during previous admission [...] rare VRE LFTs stable Plan: -CMP qAM -right/lateral side of incision drained on 07/26, cultures + VRE -Wound care for right open part of incision--> aquacel dressing to be changed once daily -ID following, appreciate recs. Transition Dapto and Zosyn to Cipro, Flagyl and Linezolid for a total of 14 days -Continue ppx acyclovir, bactrim, PPI Assessment & Plan (07/29/2023 2:13 PM EST): Assessment: 06/02/23-DBD-OLT (organox perfusion), piggyback, dCHA (GDA patch) - rCHA (left/right KING patch), Main PV - Main PV, [id number] CT abdomen 07/08-small to moderate bilateral pleural effusions with right lower lobe consolidative airspace opacities and mild atelectasis/infiltrate. diffusely fatty and mildly heterogeneous transplant liver, small right posterior subcapsular fluid and mild perihepatic ascites, diffuse subcutaneous emphysema along the midline abdominal wall incision extending to the 2.5cm right mid anterolateral abdominal wall subcutaneous air fluid collection medial to the skin guzman, 7.8 X 2.4 X 5.5 CM right mid lateral abdominal wall fluid collection. diffuse soft tissue anasarca of the abdomen and pelvic side aguilar -->patient followed by ID during previous admission [...] rare VRE LFTs stable Plan: -CMP qAM -right/lateral side of incision drained on 07/26, follow-up cultures -Wound care for right open part of incision--> aquacel dressing to be changed once daily -ID following, appreciate recs. Continue dapto/zosyn today and discuss final plan for oral antibiotics with ID tomorrow -Continue ppx acyclovir, bactrim, PPI Assessment & Plan (07/28/2023 1:16 PM EST): Assessment: 06/02/23-DBD-OLT (organox perfusion), piggyback, dCHA (GDA patch) - rCHA (left/right KING patch), Main PV - Main PV, [id number] CT abdomen 07/08-small to moderate bilateral pleural effusions with right lower lobe consolidative airspace opacities and mild atelectasis/infiltrate. diffusely fatty and mildly heterogeneous transplant liver, small right posterior subcapsular fluid and mild perihepatic ascites, diffuse subcutaneous emphysema along the midline abdominal wall incision extending to the 2.5cm right mid anterolateral abdominal wall subcutaneous air fluid collection medial to the skin guzman, 7.8 X 2.4 X 5.5 CM right mid lateral abdominal wall fluid collection. diffuse soft tissue anasarca of the abdomen and pelvic side aguilar -->patient followed by ID during previous admission [...] image guided drainage right abdominal wall fluid collectoin LFTs stable Plan: -CMP qAM -right/lateral side of incision drained on 07/26, follow-up cultures -Wound care for right open part of incision--> aquacel dressing to be changed once daily -ID following, appreciate recs. Continue dapto/zosyn per ID recs while awaiting culture from collection -Continue ppx acyclovir, bactrim, PPI Assessment & Plan (07/27/2023 2:26 PM EST): Assessment: 06/02/23-DBD-OLT (organox perfusion), piggyback, dCHA (GDA patch) - rCHA (left/right KING patch), Main PV - Main PV, [id number] CT abdomen 07/08-small to moderate bilateral pleural effusions with right lower lobe consolidative airspace opacities and mild atelectasis/infiltrate. diffusely fatty and mildly heterogeneous transplant liver, small right posterior subcapsular fluid and mild perihepatic ascites, diffuse subcutaneous emphysema along the midline abdominal wall incision extending to the 2.5cm right mid anterolateral abdominal wall subcutaneous air fluid collection medial to the skin guzman, 7.8 X 2.4 X 5.5 CM right mid lateral abdominal wall fluid collection. diffuse soft tissue anasarca of the abdomen and pelvic side aguilar -->patient followed by ID during previous admission [...] to CT 07/08/2023, possibly representing remote hematoma. LFTs stable Plan: -CMP qAM -right/lateral side of incision drained on 07/26, follow-up cultures -Wound care for right open part of incision--> aquacel dressing to be changed once daily -ID following, appreciate recs. Continue dapto/zosyn per ID recs while awaiting culture from collection -Continue ppx acyclovir, bactrim, PPI Assessment & Plan (07/26/2023 3:41 PM EST): Assessment: 06/02/23-DBD-OLT (organox perfusion), piggyback, dCHA (GDA patch) - rCHA (left/right KING patch), Main PV - Main PV, [id number] CT abdomen 07/08-small to moderate bilateral pleural effusions with right lower lobe consolidative airspace opacities and mild atelectasis/infiltrate. diffusely fatty and mildly heterogeneous transplant liver, small right posterior subcapsular fluid and mild perihepatic ascites, diffuse subcutaneous emphysema along the midline abdominal wall incision extending to the 2.5cm right mid anterolateral abdominal wall subcutaneous air fluid collection medial to the skin guzman, 7.8 X 2.4 X 5.5 CM right mid lateral abdominal wall fluid collection. diffuse soft tissue anasarca of the abdomen and pelvic side aguilar -->patient followed by ID during previous admission [...] to CT 07/08/2023, possibly representing remote hematoma. LFTs stable Plan: -CMP qAM -right/lateral side of incision drained today and culture sent. -Wound care for right open part of incision--> aquacel dressing to be changed once daily -ID following, appreciate recs. Will start dapto/zosyn per ID recs while awaiting culture from collection -Continue ppx acyclovir, bactrim, PPI Assessment & Plan (07/25/2023 3:13 PM EST): Assessment: 06/02/23-DBD-OLT (organox perfusion), piggyback, dCHA (GDA patch) - rCHA (left/right KING patch), Main PV - Main PV, [id number] CT abdomen 07/08-small to moderate bilateral pleural effusions with right lower lobe consolidative airspace opacities and mild atelectasis/infiltrate. diffusely fatty and mildly heterogeneous transplant liver, small right posterior subcapsular fluid and mild perihepatic ascites, diffuse subcutaneous emphysema along the midline abdominal wall incision extending to the 2.5cm right mid anterolateral abdominal wall subcutaneous air fluid collection medial to the skin guzman, 7.8 X 2.4 X 5.5 CM right mid lateral abdominal wall fluid collection. diffuse soft tissue anasarca of the abdomen and pelvic side aguilar -->patient followed by ID during previous admission [...] to CT 07/08/2023, possibly representing remote hematoma. LFTs stable Plan: -CMP qAM -Will plan to drain collection on right/lateral side of incision and send culture -Wound care for right open part of incision--> aquacel dressing to be changed once daily -ID following, appreciate recs -Continue ppx acyclovir, bactrim, PPI Assessment & Plan (07/24/2023 3:27 PM EST): Assessment: 06/02/23-DBD-OLT (organox perfusion), piggyback, dCHA (GDA patch) - rCHA (left/right KING patch), Main PV - Main PV, [id number] CT abdomen 07/08-small to moderate bilateral pleural effusions with right lower lobe consolidative airspace opacities and mild atelectasis/infiltrate. diffusely fatty and mildly heterogeneous transplant liver, small right posterior subcapsular fluid and mild perihepatic ascites, diffuse subcutaneous emphysema along the midline abdominal wall incision extending to the 2.5cm right mid anterolateral abdominal wall subcutaneous air fluid collection medial to the skin guzman, 7.8 X 2.4 X 5.5 CM right mid lateral abdominal wall fluid collection. diffuse soft tissue anasarca of the abdomen and pelvic side aguilar -->patient followed by ID during previous admission (07/08-07/12) and completed course of Cipro, Flagyl, Zyvox on 07/18. Was scheduled for Txp ID f/y with soft tissue abd US on 07/25. LVUS 07/23: Patent hepatic vasculature with appropriately directed flow. Improved main hep arterial velocity since the prior. Stable heterogenous liver transplant parenchyma, likely related to infarct. Stable peritransplant collection LFTs stable Plan: -CMP qAM -Wound care for right open part of incision--> aquacel dressing to be changed once daily -ID following, soft tissue abd US ordered today, will f/u -Continue ppx acyclovir, bactrim, PPI Dependence on intermittent renal dialysis 2022 Assessment & Plan (07/30/2023 4:45 PM EST): Assessment: NADER-D, dialysis M, W, F Last HD session; 07/30 Plan: -Nephrology consulted, appreciate recommendations for management and dialysis. Assessment & Plan (07/29/2023 2:07 PM EST): Assessment: NADER-D, dialysis M, W, F Last HD session; 07/27, 2L removed Plan: -Nephrology consulted, appreciate recommendations for management and dialysis. Assessment & Plan (07/28/2023 1:13 PM EST): Assessment: NADER-D, dialysis M, W, F Last HD session; 07/27, 2L removed Plan: -Nephrology consulted, appreciate recommendations for management and dialysis. Assessment & Plan (07/27/2023 2:24 PM EST): Assessment: NADER-D, dialysis M, W, F Last HD session today 07/27 Plan: -Nephrology consulted, appreciate recommendations for management and dialysis. Assessment & Plan (07/26/2023 3:40 PM EST): Assessment: NADER-D, dialysis M, W, F Plan: -Nephrology consulted, appreciate recommendations for management and dialysis. -Request for first round dialysis tomorrow Assessment & Plan (07/25/2023 3:11 PM EST): Assessment: NADER-D, dialysis M, W, F Plan: -Nephrology consulted, appreciate recommendations for management and dialysis. IHD today Assessment & Plan (07/24/2023 3:34 PM EST): Assessment: NADER-D, dialysis M, W, F Plan: -Nephrology consulted, appreciate recommendations for management and dialysis Assessment & Plan (07/11/2023 3:58 PM EDT): Assessment: on IHD M,W,F Plan: nephrology on consult bladder scan to assess for urine on 07/10 showed no urine continue to monitor for any urine output bladder scan as needed Assessment & Plan (07/10/2023 4:50 PM EDT): Assessment: on IHD M,W,F Plan: nephrology on consult bladder scan to assess for urine Debilitated 07/10/2023 Impaired functional mobility, balance, gait, and endurance 07/10/2023 Assessment & Plan (07/11/2023 4:00 PM EDT): Assessment: PT recommend AR Plan: continue PT and OT consult PM&R Assessment & Plan (07/10/2023 4:51 PM EDT): Assessment: PT recommend AR Plan: continue PT and OT consult PM&R Abdominal fluid collection 07/08/2023 Assessment & Plan (07/11/2023 3:58 PM EDT): Assessment: CT abdomen 07/08-small to moderate bilateral pleural effusions with right lower lobe consolidative airspace opacities and mild atelectasis/infiltrate. diffusely fatty and mildly heterogeneous transplant liver, small right posterior subcapsular fluid and mild perihepatic ascites, diffuse subcutaneous emphysema along the midline abdominal wall incision extending to the 2.5cm right mid anterolateral abdominal wall subcutaneous air fluid collection medial to the skin guzman, 7.8 X 2.4 X 5.5 CM right mid lateral abdominal wall fluid collection. diffuse soft tissue anasarca of the abdomen and pelvic side aguilar Plan: infectious disease on consult, appreciate recommendations wound care for open portion of incision no further surgical intervention at this time Assessment & Plan (07/10/2023 4:49 PM EDT): Assessment: CT abdomen 07/08-SMALL TO MODERATE BILATERAL PLEURAL EFFUSIONS WITH RIGHT LOWER LOBE CONSOLIDATIVE AIRSPACE OPACITIES AND MILD LEFT BASILAR ATELECTASIS/ INFILTRATE, WORSE SINCE 06/13/2023 DIFFUSELY FATTY AND MILDLY HETEROGENEOUS TRANSPLANT LIVER, IMPROVED SINCE 06/13/2023. SMALL RIGHT POSTERIOR SUBCAPSULAR FLUID AND MILD PERIHEPATIC ASCITES, IMPROVED SINCE 06/13/2023. DIFFUSE SUBCUTANEOUS EMPHYSEMA ALONG THE MIDLINE ABDOMINAL WALL INCISION EXTENDING TO THE 2.5 CM RIGHT MID ANTEROLATERAL ABDOMINAL WALL SUBCUTANEOUS AIR FLUID COLLECTION MEDIAL TO THE SKIN GUZMAN, NEW SINCE 06/13/2023. 7.8 X 2.4 X 5.5 CM RIGHT MID LATERAL ABDOMINAL WALL FLUID COLLECTION, IMPROVED SINCE 06/13/2023 DIFFUSE SOFT TISSUE ANASARCA/FLUID OF THE ABDOMEN AND PELVIC SIDE AGUILAR, WORSE SINCE 06/13/2023. Plan: infectious disease on consult, appreciate recommendations wound care for open portion of incision no further surgical intervention at this time Alteration in self-care ability 06/27/2023 Impaired mobility 06/27/2023 At risk for falls 06/27/2023 Fever 06/26/2023 Assessment & Plan (06/28/2023 5:39 PM EDT): Assessment: Tmax 37.4 RVP 06/26-negative CT chest [...] NGTD Follow-up wound culture from right lateral guzman removed monitor vitals Assessment & Plan (06/27/2023 2:46 PM EDT): Assessment: Tmax 37.4 RVP 06/26-negative CT chest [...] new internal foci of gas. Plan: blood cultures-pending plan to remove some guzman from the incision today due to subcutaneous fluid monitor vitals Assessment & Plan (06/26/2023 2:53 PM EDT): Assessment: Tmax 38.4 Plan: blood cultures check RVP CT abdomen and chest without contrast Physical deconditioning 06/18/2023 Weakness 06/18/2023 Impaired gait and mobility 06/18/2023 Leukocytosis 06/14/2023 Perihepatic fluid collection 06/14/2023 Type 2 diabetes mellitus wit h hyperglycemia, with long-term current use of insulin 06/13/2023 On tube feeding diet 06/12/2023 Current use of steroid medication 06/11/2023 Complication of transplanted liver 06/11/2023 Electrolyte and fluid disorder 06/11/2023 Recipient of liver transplantation 06/07/2023 Encephalopathy 06/07/2023 Malnutrition of mild degree 06/07/2023 Encounter for immunosuppress ion management after liver transplant 06/06/2023 Assessment & Plan (07/11/2023 4:00 PM EDT): Assessment: prograf 4mg BID myfortic 360mg BID prograf level is pending Plan: no changes in immunosuppression monitor prograf levels daily Assessment & Plan (07/10/2023 4:51 PM EDT): Assessment: prograf 3mg BID myfortic 360mg BID prograf level is 4.6 Plan: increase prograf 4mg BID monitor prograf levels daily Assessment & Plan (06/28/2023 5:38 PM EDT): Assessment: -Crossmatch negative, Induction with Simulect on 06/02, 06/06 - Tacrolimus 1 mg BID started on 06/04 PM. Current IS: - Myfortic 360mg BID - Tacrolimus 2.5 mg BID - FK level 9.3 Plan: - keep current dose of tacrolimus - myfortic 360mg every 12 hours - Check FK levels qAM prior to giving Tacrolimus Assessment & Plan (06/27/2023 2:41 PM EDT): Assessment: -Crossmatch negative, Induction with Simulect on 06/02, 06/06 - Tacrolimus 1 mg BID started on 06/04 PM. Current IS: - Myfortic 360mg BID - Tacrolimus 3mg BID - FK level 9.1 Plan: -decrease prograf to 2.5mg BID - myfortic 360mg every 12 hours - Check FK levels qAM prior to giving Tacrolimus Assessment & Plan (06/26/2023 2:46 PM EDT): Assessment: -Crossmatch negative, Induction with Simulect on 06/02, 06/06 - Tacrolimus 1 mg BID started on 06/04 PM. Current IS: - Myfortic 360mg BID - Tacrolimus 3mg BID - FK level 7.8 Plan: -no changes in immunosuppression - myfortic 360mg every 12 hours - Check FK levels qAM prior to giving Tacrolimus Assessment & Plan (06/25/2023 4:57 PM EDT): Assessment: -Crossmatch negative, Induction with Simulect on 06/02, 06/06 - Tacrolimus 1 mg BID started on 06/04 PM. Current IS: - Myfortic 360mg BID - Tacrolimus 3mg BID - FK level 7.2 Plan: -f/u FK level and adjust tacrolimus dose PRN - myfortic 360mg every 12 hours - Check FK levels qAM prior to giving Tacrolimus Assessment & Plan (06/24/2023 11:59 AM EDT): Assessment: -Crossmatch negative, Induction with Simulect on 06/02, 06/06 - Tacrolimus 1 mg BID started on 06/04 PM. Current IS: - Myfortic 360mg BID - Tacrolimus 3mg BID - FK level 7.3 Plan: -f/u FK level and adjust tacrolimus dose PRN - myfortic 360mg every 12 hours - Check FK levels qAM prior to giving Tacrolimus Assessment & Plan (06/22/2023 12:48 PM EDT): Assessment: -Crossmatch negative, Induction with Simulect on 06/02, 06/06 - Tacrolimus 1 mg BID started on 06/04 PM. Current IS: - Myfortic 360mg BID - Steroid taper - Tacrolimus 3mg BID - FK level 7 Plan: - Continue steroid taper - no changes in tacrolimus dose - cellcept to myfortic 360mg every 12 hours - Check FK levels qAM prior to giving Tacrolimus Assessment & Plan (06/21/2023 3:22 PM EDT): Assessment: -Crossmatch negative, Induction with Simulect on 06/02, 06/06 - Tacrolimus 1 mg BID started on 06/04 PM. Current IS: - Myfortic 360mg BID - Steroid taper - Tacrolimus 3mg BID - FK level 5.5 Plan: - Continue steroid taper - no changes in tacrolimus dose - cellcept to myfortic 360mg every 12 hours - Check FK levels qAM prior to giving Tacrolimus Assessment & Plan (06/20/2023 3:25 PM EDT): Assessment: -Crossmatch negative, Induction with Simulect on 06/02, 06/06 - Tacrolimus 1 mg BID started on 06/04 PM. Current IS: - Cellcept 1,000 mg BID - Steroid taper - Tacrolimus 3mg BID - FK level 6.6 Plan: - Continue steroid taper - no changes in tacrolimus dose -change cellcept to myfortic 360mg every 12 hours - Check FK levels qAM prior to giving Tacrolimus Assessment & Plan (06/19/2023 4:44 PM EDT): Assessment: -Crossmatch negative, Induction with Simulect on 06/02, 06/06 - Tacrolimus 1 mg BID started on 06/04 PM. Current IS: - Cellcept 1,000 mg BID - Steroid taper - Tacrolimus 2mg BID - FK level 4.9 Plan: - Continue Cellcept and steroid taper - increased prograf 3mg BID - Check FK levels qAM prior to giving Tacrolimus Assessment & Plan (06/18/2023 5:07 PM EDT): -Crossmatch negative, Induction with Simulect on 06/02, 06/06 - Tacrolimus 1 mg BID started on 06/04 PM. - Patient was given 3 mg Tacrolimus on 06/06 PM. 2 mg Tacrolimus started on 06/06 in AM. - A 1 time 2 mg dose of Tacrolimus was given on 06/07 and then 3 mg BID was started in the PM. Current IS: - Cellcept 1,000 mg BID - Steroid taper - Tacrolimus 2mg resumed 06/16 in PM after holding for elevated levels - FK level 5.5 Plan: - Continue Cellcept and steroid taper - no changes in immunosuppression - Check FK levels qAM prior to giving Tacrolimus Assessment & Plan (06/06/2023 3:36 PM EDT): Assessment: Crossmatch negative, Induction with Simulect on 06/02, 06/06 Current IS: - Cellcept 1,000 mg BID - Tacrolimus 1 mg BID started on 06/04 PM - Steroid taper FK level undetectable Plan: - Give 3 mg Tacrolimus tonight, will start Tacrolimus 2 mg BID tomorrow AM - Check FK levels qAM prior to giving Tacrolimus - Continue steroid taper, Cellcept Acute blood loss anemia 06/06/2023 Assessment & Plan (06/28/2023 5:38 PM EDT): Assessment: - Patient was transfused during the [...] and 1 units PLTs Last transfusion was 10/ 1u pRBC Plan: - Daily CBC - Continue to monitor for signs/symptoms of active bleeding - Transfuse if Hgb < 8: 1 unit given today Assessment & Plan (06/27/2023 2:39 PM EDT): Assessment: - Patient was transfused during the [...] active bleeding - Transfuse if Hgb < 7 Assessment & Plan (06/26/2023 2:41 PM EDT): Assessment: - Patient was transfused during the [...] active bleeding - Transfuse if Hgb < 7 Assessment & Plan (06/25/2023 4:56 PM EDT): Assessment: - Patient was transfused during the [...] and 1 units PLTs Last transfusion was 10 1u pRBC Plan: - Daily CBC - Continue to monitor for signs/symptoms of active bleeding - Transfuse if Hgb < 7 Assessment & Plan (06/24/2023 12:00 PM EDT): Assessment: - Patient was transfused during the [...] and 1 units PLTs Last transfusion was 06/10/23, 10 1u pRBC Plan: - Daily CBC - Continue to monitor for signs/symptoms of active bleeding - Transfuse if Hgb < 7 Assessment & Plan (06/22/2023 12:56 PM EDT): Assessment: - Patient was transfused during the [...] and 1 units PLTs Last transfusion was 06/10/23, 10/6 1u pRBC Plan: - Daily CBC - Continue to monitor for signs/symptoms of active bleeding - Transfuse if Hgb < 7 Assessment & Plan (06/21/2023 3:24 PM EDT): Assessment: - Patient was transfused during the [...] and 1 units PLTs Last transfusion was 06/10/23 Plan: - Daily CBC - Continue to monitor for signs/symptoms of active bleeding - Transfuse if Hgb < 7 (hgb 6.7, transfuse 1u pRBC) Assessment & Plan (06/20/2023 3:04 PM EDT): Assessment: - Patient was transfused during the [...] and 1 units PLTs Last transfusion was 06/10/23 Plan: - Daily CBC - Continue to monitor for signs/symptoms of active bleeding - Transfuse if Hgb < 7 Assessment & Plan (06/19/2023 4:34 PM EDT): Assessment: - Patient was transfused during the transplant with 9 PRBC, 5 cryo, 4 PLT, 732 cells saver, 2 L albumin - On 06/03 the patient received 3 PRBC, 2 FFP, 1 PLT, 1 Cryo. RTOR on 06/03 for washout d/t bleeding - On 06/05, the patient received 1 unit PRBCs overnight in view of Hgb of 7.6. Additionally, the patient received 1 units of cryo. - On 06/06 patient given 1 unit of cryo - On 06/06, RTOR for hematoma evacuation, [...] 1 units PRBCs and 1 units PLTs Plan: - Daily CBC - Continue to monitor for signs/symptoms of active bleeding - Continue to monitor color/output of AMELIE drains. - Transfuse if Hgb < 7 Assessment & Plan (06/18/2023 5:02 PM EDT): - Patient was transfused during the transplant with 9 PRBC, 5 cryo, 4 PLT, 732 cells saver, 2 L albumin - On 06/03 the patient received 3 PRBC, 2 FFP, 1 PLT, 1 Cryo. RTOR on 06/03 for washout d/t bleeding - On 06/05, the patient received 1 unit PRBCs overnight in view of Hgb of 7.6. Additionally, the patient received 1 units of cryo. - On 06/06 patient given 1 unit of cryo - On 06/06, RTOR for hematoma evacuation, [...] 1 units PRBCs and 1 units PLTs Plan: - Daily CBC - Continue to monitor for signs/symptoms of active bleeding - Continue to monitor color/output of AMELIE drains. - Transfuse if Hgb < 7 Assessment & Plan (06/09/2023 3:56 PM EDT): Hgb 7.6 from 8.9 on 06/09 Plan - Monitor Hgb Assessment & Plan (06/08/2023 11:10 AM EDT): Given 2 units pRBC overnight for >1L bloody AMELIE drain output overnight causing hypotension likely 2/2 hemorrhagic shock Lactate from 1.9 --> 2.3 -->2.4 Starting on LR 100cc/hour UF on CRRT decreased from 150 to 50 Plan - Monitor Hgb Assessment & Plan (06/07/2023 11:53 AM EDT): Given 2 units pRBC overnight for >1L bloody AMELIE drain output overnight causing hypotension likely 2/2 hemorrhagic shock Lactate from 1.9 --> 2.3 -->2.4 Starting on LR 100cc/hour UF on CRRT decreased from 150 to 50 Plan - recheck 1400 CBC - Monitor Hgb - Lactate stabilizing; continue resuscitation Assessment & Plan (06/06/2023 3:42 PM EDT): Assessment: - Patient was transfused during the transplant with 9 PRBC, 5 cryo, 4 PLT, 732 cells saver, 2 L albumin - On 06/03 the patient received 3 PRBC, 2 FFP, 1 PLT, 1 Cryo. RTOR on 06/03 for washout d/t bleeding - On 06/05, the patient received 1 unit PRBCs overnight in view of Hgb of 7.6. Additionally, the patient received 1 units of cryo. - On 06/06 patient given 1 unit of cryo - No current signs of active bleeding - CBC stable today, INR 1.3 Plan: - Continue to closely monitor CBC with CBC twice daily or more frequently as needed for concern of bleeding - Daily INR - Continue to monitor for signs/symptoms of active bleeding - Please notify liver txp team prior to blood transfusions Alteration in skin integrity due to moisture Friction injury to skin 06/05/2023 Infection due to Enterobacter species 06/04/2023 Immunocompromised 06/04/2023 Liver replaced by transplant 06/04/2023 Assessment & Plan (07/11/2023 4:03 PM EDT): Assessment: 06/02/23-DBD-OLT (organox perfusion), piggyback, dCHA (GDA patch) - rCHA (left/right KING patch), Main PV - Main PV, [id number] US liver 07/10-patent hepatic vasculature with elevated hepatic arterial velocity, heterogeneous liver transplant parenchyma likely related to ischemia/infarct Plan: monitor liver function daily reviewed US liver done on 07/10 and no further intervention, continue to monitor Assessment & Plan (07/10/2023 4:53 PM EDT): Assessment: 06/02/23-DBD-OLT (organox perfusion), piggyback, dCHA (GDA patch) - rCHA (left/right KING patch), Main PV - Main PV, [id number] US liver 07/10-PATENT HEPATIC VASCULATURE WITH APPROPRIATELY DIRECTED FLOW. ELEVATED HEPATIC ARTERIAL VELOCITY, LIKELY NEAR THE ANASTOMOSIS. HETEROGENEOUS LIVER TRANSPLANT PARENCHYMA, LIKELY RELATED TO ISCHEMIA/INFARCT. Plan: monitor liver function daily reviewed US liver today and no further intervention, continue to monitor Hypovolemic shock 06/04/2023 Delirium due to general medical condition 2022 Obesity, Class II, BMI 35-39.9 06/02/2023 S/P liver transplant 06/02/2023 Assessment & Plan (06/28/2023 5:37 PM EDT): Assessment: - S/p DBD OLT on 06/02/23 [...] Pack w/ wet to dry kerlix BID Assessment & Plan (06/27/2023 2:49 PM EDT): Assessment: - S/p DBD OLT on 06/02/23 [...] daily - Continue midodrine 5 mg TID Assessment & Plan (06/26/2023 2:50 PM EDT): Assessment: - S/p DBD OLT on 06/02/23 [...] RUQ SQ shantelle-incisional fluid. No internal gas. Plan: - CMP qAM, trend LFTs - Continue Acyclovir, Bactrim, and Micafungin prophylaxis (patient on Micafungin per high risk protocol, last day 06/23) - Continue Heparin prophylaxis and Aspirin 81 mg po daily - Continue midodrine 5 mg TID -repeat liver ultrasound of the liver Assessment & Plan (06/25/2023 4:57 PM EDT): Assessment: - S/p DBD OLT on 06/02/23 [...] RUQ SQ shantelle-incisional fluid. No internal gas. Plan: - CMP qAM, trend LFTs - Continue Acyclovir, Bactrim, and Micafungin prophylaxis (patient on Micafungin per high risk protocol, last day 06/23) - Continue Heparin prophylaxis and Aspirin 81 mg po daily - Continue midodrine 5 mg TID Assessment & Plan (06/24/2023 11:59 AM EDT): Assessment: - S/p DBD OLT on 06/02/23 [...] RUQ SQ shantelle-incisional fluid. No internal gas. Plan: - CMP qAM, trend LFTs - Continue Acyclovir, Bactrim, and Micafungin prophylaxis (patient on Micafungin per high risk protocol, last day 06/23) - Continue Heparin prophylaxis and Aspirin 81 mg po daily - Continue midodrine 5 mg TID Assessment & Plan (06/22/2023 12:47 PM EDT): Assessment: - S/p DBD OLT on 06/02/23 [...] RUQ SQ shantelle-incisional fluid. No internal gas. Plan: - CMP qAM, trend LFTs - Continue Acyclovir, Bactrim, and Micafungin prophylaxis (patient on Micafungin per high risk protocol, last day 06/23) - BC-NTD - Continue renal diet with 1500mL fluid restriction with aspiration precautions and continue tube feeds as tolerated. - Continue Heparin prophylaxis and Aspirin 81 mg po daily - Continue midodrine 5 mg TID Assessment & Plan (06/21/2023 3:21 PM EDT): Assessment: - S/p DBD OLT on 06/02/23 [...] RUQ SQ shantelle-incisional fluid. No internal gas. Plan: - CMP qAM, trend LFTs - Continue Acyclovir, Bactrim, and Micafungin prophylaxis (patient on Micafungin per high risk protocol) - BC-NTD - Continue renal diet with 1500mL fluid restriction with aspiration precautions and continue tube feeds as tolerated. - Continue Heparin prophylaxis and Aspirin 81 mg po daily - Continue midodrine 5 mg TID Assessment & Plan (06/20/2023 3:30 PM EDT): Assessment: - S/p DBD OLT on 06/02/23 [...] RUQ SQ shantelle-incisional fluid. No internal gas. Plan: - CMP qAM, trend LFTs - Continue Acyclovir, Bactrim, and Micafungin prophylaxis (patient on Micafungin per high risk protocol) - BC-NTD - Continue to monitor output/color of AMELIE drains, continue to closely monitor CBC - Continue renal diet with 1500mL fluid restriction with aspiration precautions and continue tube feeds as tolerated. - Continue Heparin prophylaxis and Aspirin 81 mg po daily - Continue midodrine 5 mg TID -remove lateral AMELIE drain today Assessment & Plan (06/19/2023 4:46 PM EDT): Assessment: - S/p DBD OLT on 06/02/23 [...] SQ shantelle-incisional fluid. No internal gas. - LFTs, including alk phos and T bili are down-trending. Plan: - CMP qAM, trend LFTs - Continue Acyclovir, Bactrim, and Micafungin prophylaxis (patient on Micafungin per high risk protocol) - BC-NTD - Continue to monitor output/color of AMELIE drains, continue to closely monitor CBC - Continue GI soft diet with aspiration precautions and continue tube feeds as tolerated. - Continue Heparin prophylaxis and Aspirin 81 mg po daily - Continue midodrine 5 mg TID -remove medial AMELIE drain Assessment & Plan (06/18/2023 5:04 PM EDT): - S/p DBD OLT on 06/02/23 d/t [...] SQ shantelle-incisional fluid. No internal gas. - LFTs, including alk phos and T bili are down-trending. Plan: - CMP qAM, trend LFTs - Continue Acyclovir, Bactrim, and Micafungin prophylaxis (patient on Micafungin per high risk protocol) - Follow up on blood culture results (NGD) - Continue to monitor output/color of AMELIE drains, continue to closely monitor CBC - Continue GI soft diet with aspiration precautions and continue tube feeds as tolerated. - Continue Heparin prophylaxis and Aspirin 81 mg po daily - Continue midodrine 5 mg TID po/feeding tube Assessment & Plan (06/10/2023 2:39 PM EDT): Assessment: Diagnosed with alcoholic cirrhosis December 2022. - US ascites survey on 05/15 without adequate pocket for paracentesis. Attempted paracentesis on 05/24 but was not completed due to no identifiable fluid pocket. - LVUS 05/15 patent hepatic vasculature with appropriately directed flow. - EGD 05/17/2023 showed no signs of varices or active bleeding. Patent Kirsten-en-Y anastomosis. - Liver US results with high velocity; per primary team that is expected with branch coming directly off aorta - 06/03: Back to OR for increasing pressor requirements, increasing drain output. Currently skin only closure. - 06/04: Liver US showed patent hepatic vasculature with appropriately directed flow. - 06/05: Received 1 unit PRBC, 1 unit cryo. - 06/07: returned to Or on 06/06 for closure. Still with large volume blood AMELIE drain output. LFTs up trending today with AST [id number] (from 254). - Started actigall 06/10 Plan: - Monitor CBC, Coags, TEG - Immunosuppression per transplant team - f/u Liver ultrasound - rest of management per primary - Started actigall, possible ERCP tomorrow Assessment & Plan (06/09/2023 3:54 PM EDT): Assessment: Diagnosed with alcoholic cirrhosis December 2022. - US ascites survey on 05/15 without adequate pocket for paracentesis. Attempted paracentesis on 05/24 but was not completed due to no identifiable fluid pocket. - LVUS 05/15 patent hepatic vasculature with appropriately directed flow. - EGD 05/17/2023 showed no signs of varices or active bleeding. Patent Kirsten-en-Y anastomosis. - Liver US results with high velocity; per primary team that is expected with branch coming directly off aorta - 06/03: Back to OR for increasing pressor requirements, increasing drain output. Currently skin only closure. - 06/04: Liver US showed patent hepatic vasculature with appropriately directed flow. - 06/05: Received 1 unit PRBC, 1 unit cryo. - 06/07: returned to Or on 06/06 for closure. Still with large volume blood AMELIE drain output. LFTs up trending today with AST fr641 (from 254). Plan: - Monitor CBC, Coags, TEG - Immunosuppression per transplant team - repeat Liver ultrasound today - rest of management per primary Assessment & Plan (06/08/2023 11:07 AM EDT): Assessment: Diagnosed with alcoholic cirrhosis December 2022. - US ascites survey on 05/15 without adequate pocket for paracentesis. Attempted paracentesis on 05/24 but was not completed due to no identifiable fluid pocket. - LVUS 05/15 patent hepatic vasculature with appropriately directed flow. - EGD 05/17/2023 showed no signs of varices or active bleeding. Patent Kirsten-en-Y anastomosis. - Liver US results with high velocity; per primary team that is expected with branch coming directly off aorta - 06/03: Back to OR for increasing pressor requirements, increasing drain output. Currently skin only closure. - 06/04: Liver US showed patent hepatic vasculature with appropriately directed flow. - 06/05: Received 1 unit PRBC, 1 unit cryo. - 06/07: returned to Or on 06/06 for closure. Still with large volume blood AMELIE drain output. LFTs up trending today with AST [id number] (from 254). Plan: - Monitor CBC, Coags, TEG - Immunosuppression per transplant team - repeat Liver ultrasound today - rest of management per primary Assessment & Plan (06/07/2023 11:48 AM EDT): Assessment: Diagnosed with alcoholic cirrhosis December 2022. - US ascites survey on 05/15 without adequate pocket for paracentesis. Attempted paracentesis on 05/24 but was not completed due to no identifiable fluid pocket. - LVUS 05/15 patent hepatic vasculature with appropriately directed flow. - EGD 05/17/2023 showed no signs of varices or active bleeding. Patent Kirsten-en-Y anastomosis. - Liver US results with high velocity; per primary team that is expected with branch coming directly off aorta - 06/03: Back to OR for increasing pressor requirements, increasing drain output. Currently skin only closure. - 06/04: Liver US showed patent hepatic vasculature with appropriately directed flow. - 06/05: Received 1 unit PRBC, 1 unit cryo. - 06/07: returned to Or on 06/06 for closure. Still with large volume blood AMELIE drain output. LFTs up trending today with AST [id number] (from 254). 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 ALT and AST downtrending appropriately, T bili stagnant at 2.3. Elevation in Alk phos [id number] (previous 356) Plan: - Return to OR today - CMP qAM. - Continue Acyclovir, Bactrim, and Micafungin prophylaxis (patient on Micafungin per high risk protocol) - Continue Meropenem per ID recommendations for hx of enterobacter prior to txp - Continue to monitor output/color of AMELIE drains, continue to closely monitor CBC Assessment & Plan (06/06/2023 11:15 AM EDT): Assessment: Diagnosed with alcoholic cirrhosis December 2022. - US ascites survey on 05/15 without adequate pocket for paracentesis. Attempted paracentesis on 05/24 but was not completed due to no identifiable fluid pocket. - LVUS 05/15 patent hepatic vasculature with appropriately directed flow. - EGD 05/17/2023 showed no signs of varices or active bleeding. Patent Kirsten-en-Y anastomosis. - Liver US results with high velocity; per primary team that is expected with branch coming directly off aorta - 06/03: Back to OR for increasing pressor requirements, increasing drain output. Currently skin only closure. - 06/04: Liver US showed patent hepatic vasculature with appropriately directed flow. - 06/05: Received 1 unit PRBC, 1 unit cryo. Plan: - Return to OR today for closure. - Monitor CBC, Coags, TEG - Immunosuppression per transplant team Assessment & Plan (06/05/2023 10:33 AM EDT): Assessment: Diagnosed with alcoholic cirrhosis December 2022. - US ascites survey on 05/15 without adequate pocket for paracentesis. Attempted paracentesis on 05/24 but was not completed due to no identifiable fluid pocket. - LVUS 05/15 patent hepatic vasculature with appropriately directed flow. - EGD 05/17/2023 showed no signs of varices or active bleeding. Patent Kirsten-en-Y anastomosis. - Liver US results with high velocity; per primary team that is expected with branch coming directly off aorta - 06/03: Back to OR for increasing pressor requirements, increasing drain output. Currently skin only closure. - 06/04: Liver US showed patent hepatic vasculature with appropriately directed flow. - 06/05: Received 1 unit PRBC, 1 unit cryo. Plan: - F/u repeat liver US - Monitor CBC, Coags, TEG - Immunosuppression per transplant team Assessment & Plan (06/04/2023 9:20 AM EDT): Assessment: Diagnosed with alcoholic cirrhosis December 2022. - US ascites survey on 05/15 without adequate pocket for paracentesis. Attempted paracentesis on 05/24 but was not completed due to no identifiable fluid pocket. - LVUS 05/15 patent hepatic vasculature with appropriately directed flow. - EGD 05/17/2023 showed no signs of varices or active bleeding. Patent Kirsten-en-Y anastomosis. - Liver US results with high velocity; per primary team that is expected with branch coming directly off aorta Plan: - F/u repeat liver US - Monitor CBC, Coags, TEG - Immunosuppression per transplant team Assessment & Plan (06/03/2023 3:21 AM EDT): Assessment: Diagnosed with alcoholic cirrhosis December 2022. - US ascites survey on 05/15 without adequate pocket for paracentesis. Attempted paracentesis on 05/24 but was not completed due to no identifiable fluid pocket. - LVUS 05/15 patent hepatic vasculature with appropriately directed flow. - EGD 05/17/2023 showed no signs of varices or active bleeding. Patent Kirsten-en-Y anastomosis. Plan: - Monitor CBC, Coags, TEG - Liver US results with high velocity; per primary team that is expected with branch coming directly off aorta - Immunosuppression per transplant team Assessment & Plan (06/02/2023 2:48 PM EDT): Assessment: Diagnosed with alcoholic cirrhosis December 2022. - US ascites survey on 05/15 without adequate pocket for paracentesis. Attempted paracentesis on 05/24 but was not completed due to no identifiable fluid pocket. - LVUS 05/15 patent hepatic vasculature with appropriately directed flow. - EGD 05/17/2023 showed no signs of varices or active bleeding. Patent Kirsten-en-Y anastomosis. Plan: - Monitor CBC, Coags, TEG - F/u Liver US - Immunosuppression per transplant team Acute post-operative pain 06/02/2023 Assessment & Plan (06/28/2023 5:37 PM EDT): Assessment: - Current pain regimen: - Tylenol 500 mg oral q6h PRN - Oxycodone 5 mg q6h prn Plan: - continue current pain medications Assessment & Plan (06/27/2023 2:40 PM EDT): Assessment: - Current pain regimen: - Tylenol 500 mg oral q6h PRN - Oxycodone 5 mg q6h prn Plan: - continue current pain medications Assessment & Plan (06/26/2023 2:42 PM EDT): Assessment: - Current pain regimen: - Tylenol 500 mg oral q6h PRN - Oxycodone 5 mg q6h prn Plan: - continue current pain medications Assessment & Plan (06/25/2023 4:56 PM EDT): Assessment: - Current pain regimen: - Tylenol 500 mg oral q6h PRN - Oxycodone 5 mg q6h prn Plan: - continue current pain medications Assessment & Plan (06/24/2023 8:28 AM EDT): Assessment: - Current pain regimen: - Tylenol 500 mg oral q6h PRN - Oxycodone 5 mg q6h prn Plan: - continue current pain medications Assessment & Plan (06/22/2023 12:55 PM EDT): Assessment: - Current pain regimen: - Tylenol 500 mg oral q6h PRN - Oxycodone 5 mg q6h prn Plan: - continue current pain medications Assessment & Plan (06/21/2023 3:23 PM EDT): Assessment: - Current pain regimen: - Tylenol 500 mg oral q6h PRN - Oxycodone 5 mg q6h prn Plan: - continue current pain medications Assessment & Plan (06/20/2023 3:20 PM EDT): Assessment: - Current pain regimen: - Tylenol 500 mg oral q6h PRN - Oxycodone 5 mg q6h prn Plan: - continue current pain medications Assessment & Plan (06/19/2023 4:41 PM EDT): Assessment: - Current pain regimen: - Tylenol 500 mg oral q6h PRN - Oxycodone 5 mg q6h prn Plan: - continue current pain medications Assessment & Plan (06/18/2023 5:03 PM EDT): - Patient's pain is well controlled today - Current pain regimen: - Tylenol 500 mg oral/feeding tube q6h PRN - Oxycodone 5 mg q6h prn Plan: - Continue Tylenol to PRN (pt not consistently taking standing) and oxycodone to PRN BTP Assessment & Plan (06/09/2023 3:55 PM EDT): Assessment: S/p OLT 06/02/23 Plan: - Tylenol - Fentanyl prn - Oxycodone - Lidocaine patch Assessment & Plan (06/08/2023 11:04 AM EDT): Assessment: S/p OLT 06/02/23 Plan: - Tylenol - Fentanyl prn Assessment & Plan (06/06/2023 3:34 PM EDT): Assessment: Patient currently intubated, sedated Plan: -Pain regimen per SICU Assessment & Plan (06/06/2023 11:14 AM EDT): Assessment: S/p OLT 06/02/23 Plan: - Tylenol - Fentanyl prn Assessment & Plan (06/05/2023 10:30 AM EDT): Assessment: S/p OLT 06/02/23 Plan: - Tylenol - Fentanyl prn Assessment & Plan (06/04/2023 9:18 AM EDT): Assessment: S/p OLT 06/02/23 Plan: - Tylenol - Fentanyl prn Assessment & Plan (06/03/2023 3:21 AM EDT): Assessment: S/p OLT 06/02/23 Plan: - Tylenol - Fentanyl prn Assessment & Plan (06/02/2023 2:32 PM EDT): Assessment: S/p OLT 06/02/23 Plan: - Tylenol - Fentanyl prn Respiratory failure, post-operative 06/02/2023 Assessment & Plan (06/09/2023 3:57 PM EDT): Assessment: Arrived to SICU intubated post OLT 06/02. Back to OR 06/03 for continuous AMELIE drain output, hemodynamically unstable. 06/07: Extubated 06/09: 2L NC Plan: - BPH, OOB - Albuterol prn - Wean oxygen as able Assessment & Plan (06/08/2023 11:06 AM EDT): Assessment: Arrived to SICU intubated post OLT 06/02. Back to OR 06/03 for continuous AMELIE drain output, hemodynamically unstable. 06/07: Extubated Plan: - BPH, OOB - Albuterol prn - Wean oxygen as able Assessment & Plan (06/06/2023 11:14 AM EDT): Assessment: Arrived to SICU intubated post OLT 06/02. Back to OR 06/03 for continuous AMELIE drain output, hemodynamically unstable. Plan: - Plan to return to OR today. - WTE when return from OR Assessment & Plan (06/05/2023 10:31 AM EDT): Assessment: Arrived to SICU intubated post OLT 06/02. Back to OR 06/03 for continuous AMELIE drain output, hemodynamically unstable. Plan: - Plan to return to OR tomorrow. Will keep intubated today. Assessment & Plan (06/04/2023 9:19 AM EDT): Assessment: Arrived to SICU intubated post OLT 06/02. Back to OR 06/03 for continuous AMELIE drain output, hemodynamically unstable. Plan: - Will keep intubated until HDS Assessment & Plan (06/03/2023 3:22 AM EDT): Assessment: Arrived to SICU intubated post OLT 06/02. Plan: - WTE when stable - BPH, IS when able Assessment & Plan (06/02/2023 2:43 PM EDT): Assessment: Arrived to SICU intubated post OLT 06/02. Plan: - WTE - BPH, IS when able Dermatitis associated with moisture 05/31/2023 Hypervolemia 05/27/2023 Metabolic acidosis 05/25/2023 Assessment & Plan (06/08/2023 11:10 AM EDT): Resolved Assessment & Plan (06/06/2023 11:15 AM EDT): Assessment: metabolic acidosis - 06/03:Received multiple doses sodium bicarb, total 300 mEq, during initial postop resuscitation period. Plan: - Serial ABG Assessment & Plan (06/05/2023 10:32 AM EDT): Assessment: metabolic acidosis - 06/03:Received multiple doses sodium bicarb, total 300 mEq, during initial postop resuscitation period. Plan: - Serial ABG Assessment & Plan (06/04/2023 9:21 AM EDT): Assessment: metabolic acidosis - 06/03:Received multiple doses sodium bicarb, total 300 mEq, during initial postop resuscitation period. Plan: - Serial ABG Assessment & Plan (06/03/2023 3:20 AM EDT): Assessment: metabolic acidosis Plan: Received multiple doses sodium bicarb, total 300 mEq, during initial postop resuscitation period - serial ABG Adjustment disorder with mixed anxiety and depre ssed mood 05/25/2023 Assessment & Plan (06/28/2023 5:36 PM EDT): Assessment: - Patient has a hx of [...] is following, recommendations appreciated - BC 06/13-NTD Assessment & Plan (06/27/2023 2:40 PM EDT): Assessment: - Patient has a hx of [...] pleural effusion. No thoracic lymphadenopathy. - CT sandy 06/16 negative for acute process Plan: - Continue to monitor patient for sxs - Continue scheduled Abilify 2 mg TID and Abilify 2 mg TID prn for breakthrough anxiety/agitation. Also on Remeron 7.5 mg qhs - Txp Psych is following, recommendations appreciated - 06/13-NTD Assessment & Plan (06/26/2023 2:43 PM EDT): Assessment: - Patient has a hx of [...] pleural effusion. No thoracic lymphadenopathy. - CT sandy 06/16 negative for acute process Plan: - Continue to monitor patient for sxs - Continue scheduled Abilify 2 mg TID and Abilify 2 mg TID prn for breakthrough anxiety/agitation. Also on Remeron 7.5 mg qhs - Txp Psych is following, recommendations appreciated - 06/13-NTD Assessment & Plan (06/25/2023 4:56 PM EDT): Assessment: - Patient has a hx of [...] pleural effusion. No thoracic lymphadenopathy. - CT sandy 06/16 negative for acute process Plan: - Continue to monitor patient for sxs - Continue scheduled Abilify 2 mg TID and Abilify 2 mg TID prn for breakthrough anxiety/agitation. Also on Remeron 15 mg qhs - Txp Psych is following, recommendations appreciated - BC-NTD Assessment & Plan (06/24/2023 8:19 AM EDT): Assessment: - Patient has a hx of [...] pleural effusion. No thoracic lymphadenopathy. - CT sandy 06/16 negative for acute process Plan: - Continue to monitor patient for sxs - Continue scheduled Abilify 2 mg TID and Abilify 2 mg TID prn for breakthrough anxiety/agitation. Also on Remeron 15 mg qhs - Txp Psych is following, recommendations appreciated - Delirium protocol - BC-NTD Assessment & Plan (06/22/2023 12:55 PM EDT): Assessment: - Patient has a hx of [...] pleural effusion. No thoracic lymphadenopathy. - CT sandy 06/16 negative for acute process Plan: - Continue to monitor patient for sxs - Continue scheduled Abilify 2 mg TID and Abilify 2 mg TID prn for breakthrough anxiety/agitation. Also on Remeron 15 mg qhs - Txp Psych is following, recommendations appreciated - Delirium protocol - -NTD Assessment & Plan (06/21/2023 3:23 PM EDT): Assessment: - Patient has a hx of [...] pleural effusion. No thoracic lymphadenopathy. - CT sandy 06/16 negative for acute process Plan: - Continue to monitor patient for sxs - Continue scheduled Abilify 2 mg TID and Abilify 2 mg TID prn for breakthrough anxiety/agitation. Also on Remeron 15 mg qhs - Txp Psych is following, recommendations appreciated - Delirium protocol - BC-NTD Assessment & Plan (06/20/2023 3:21 PM EDT): Assessment: - Patient has a hx of [...] pleural effusion. No thoracic lymphadenopathy. - CT sandy 06/16 negative for acute process Plan: - Continue to monitor patient for sxs - Continue scheduled Abilify 2 mg TID and Abilify 2 mg TID prn for breakthrough anxiety/agitation. Also on Remeron 15 mg qhs - Txp Psych is following, recommendations appreciated - Delirium protocol - -NTD Assessment & Plan (06/19/2023 4:41 PM EDT): Assessment: - Patient has a hx of [...] pleural effusion. No thoracic lymphadenopathy. - CT sandy 06/16 negative for acute process Plan: - Continue to monitor patient for sxs - Continue scheduled Abilify 2 mg TID and Abilify 2 mg TID prn for breakthrough anxiety/agitation. Also on Remeron 15 mg qhs - Txp Psych is following, recommendations appreciated - Delirium protocol - -NTD Assessment & Plan (06/18/2023 5:03 PM EDT): - Patient has a hx of adjustment [...] pleural effusion. No thoracic lymphadenopathy. - CT sandy 06/16 negative for acute process Plan: - Continue to monitor patient for sxs - Continue scheduled Abilify 2 mg TID and Abilify 2 mg TID prn for breakthrough anxiety/agitation. Also on Remeron 15 mg qhs - Txp Psych is following, recommendations appreciated - Delirium protocol - Follow up on blood culture results (NGD) Assessment & Plan (06/10/2023 2:43 PM EDT): Assessment: Home cymbalta held. Plan: -Continue home cymbalta. Assessment & Plan (06/09/2023 3:54 PM EDT): Assessment: Home cymbalta held. Plan: -Restart home cymbalta. Assessment & Plan (06/06/2023 3:25 PM EDT): Assessment: Patient with hx of adjustment disorder with mixed anxiety and depression, on duloxetine FILLETER Plan: -Continue to monitor -Continue to hold home meds for now -Can consult txp psych if needed Other ascites 05/24/2023 Adjustment disorder with anxious mood 05/23/2023 Alcohol use disorder, severe, in early remission 05/23/2023 Pulmonary hypertension 05/22/2023 Assessment & Plan (06/28/2023 5:36 PM EDT): Assessment: - 05/15/23 ECHO: estimated right ventricular systolic pressure of 48 mmHg consistent with mild pulmonary hypertension. - 05/24/23 Stress ECHO Dobutamine: major resting echocardiographic findings were comparable to 05/15/23 ECHO - ECHO on 06/12/23: RVSP unable to be measured. Consider repeat ECHO as an outpatient Plan: - Continue to monitor Assessment & Plan (06/27/2023 2:47 PM EDT): Assessment: - 05/15/23 ECHO: estimated right ventricular systolic pressure of 48 mmHg consistent with mild pulmonary hypertension. - 05/24/23 Stress ECHO Dobutamine: major resting echocardiographic findings were comparable to 05/15/23 ECHO - ECHO on 06/12/23: RVSP unable to be measured. Consider repeat ECHO as an outpatient Plan: - Continue to monitor Assessment & Plan (06/26/2023 2:46 PM EDT): Assessment: - 05/15/23 ECHO: estimated right ventricular systolic pressure of 48 mmHg consistent with mild pulmonary hypertension. - 05/24/23 Stress ECHO Dobutamine: major resting echocardiographic findings were comparable to 05/15/23 ECHO - ECHO on 06/12/23: RVSP unable to be measured. Consider repeat ECHO as an outpatient Plan: - Continue to monitor Assessment & Plan (06/25/2023 4:57 PM EDT): Assessment: - 05/15/23 ECHO: estimated right ventricular systolic pressure of 48 mmHg consistent with mild pulmonary hypertension. - 05/24/23 Stress ECHO Dobutamine: major resting echocardiographic findings were comparable to 05/15/23 ECHO - ECHO on 06/12/23: RVSP unable to be measured. Consider repeat ECHO as an outpatient Plan: - Continue to monitor Assessment & Plan (06/24/2023 8:18 AM EDT): Assessment: - 05/15/23 ECHO: estimated right ventricular systolic pressure of 48 mmHg consistent with mild pulmonary hypertension. - 05/24/23 Stress ECHO Dobutamine: major resting echocardiographic findings were comparable to 05/15/23 ECHO - ECHO on 06/12/23: RVSP unable to be measured. Consider repeat ECHO as an outpatient Plan: - Continue to monitor Assessment & Plan (06/22/2023 12:55 PM EDT): Assessment: - 05/15/23 ECHO: estimated right ventricular systolic pressure of 48 mmHg consistent with mild pulmonary hypertension. - 05/24/23 Stress ECHO Dobutamine: major resting echocardiographic findings were comparable to 05/15/23 ECHO - ECHO on 06/12/23: RVSP unable to be measured. Consider repeat ECHO as an outpatient Plan: - Continue to monitor Assessment & Plan (06/21/2023 3:23 PM EDT): Assessment: - 05/15/23 ECHO: estimated right ventricular systolic pressure of 48 mmHg consistent with mild pulmonary hypertension. - 05/24/23 Stress ECHO Dobutamine: major resting echocardiographic findings were comparable to 05/15/23 ECHO - ECHO on 06/12/23: RVSP unable to be measured. Consider repeat ECHO as an outpatient Plan: - Continue to monitor Assessment & Plan (06/20/2023 3:29 PM EDT): Assessment: - 05/15/23 ECHO: estimated right ventricular systolic pressure of 48 mmHg consistent with mild pulmonary hypertension. - 05/24/23 Stress ECHO Dobutamine: major resting echocardiographic findings were comparable to 05/15/23 ECHO - ECHO on 06/12/23: RVSP unable to be measured. Consider repeat ECHO as an outpatient Plan: - Continue to monitor Assessment & Plan (06/19/2023 4:45 PM EDT): Assessment: - 05/15/23 ECHO: estimated right ventricular systolic pressure of 48 mmHg consistent with mild pulmonary hypertension. - 05/24/23 Stress ECHO Dobutamine: major resting echocardiographic findings were comparable to 05/15/23 ECHO - ECHO on 06/12/23: RVSP unable to be measured. Consider repeat ECHO as an outpatient Plan: - Continue to monitor Assessment & Plan (06/18/2023 5:04 PM EDT): - 05/15/23 ECHO: estimated right ventricular systolic pressure of 48 mmHg consistent with mild pulmonary hypertension. - 05/24/23 Stress ECHO Dobutamine: major resting echocardiographic findings were comparable to 05/15/23 ECHO - ECHO on 06/12/23: RVSP unable to be measured. Consider repeat ECHO as an outpatient Plan: - Continue to monitor Assessment & Plan (06/09/2023 3:54 PM EDT): Assessment: ECHO 05/15/23 with estimated RVSP of 48 mmHg, consistent with mild pulmonary hypertension. - PA cath removed 06/03 Plan: - Avoid hypoxia, acidosis - CTM Assessment & Plan (06/08/2023 11:04 AM EDT): Assessment: ECHO 05/15/23 with estimated RVSP of 48 mmHg, consistent with mild pulmonary hypertension. - PA cath removed 06/03 Plan: - Avoid hypoxia, acidosis - CTM Assessment & Plan (06/06/2023 3:20 PM EDT): Assessment: 05/15/23 ECHO with estimated right ventricular systolic pressure is 48 mmHg consistent with mild pulmonary hypertension. Plan: -Continue to monitor -Repeat ECHO once on RNF Assessment & Plan (06/06/2023 11:14 AM EDT): Assessment: ECHO 05/15/23 with estimated RVSP of 48 mmHg, consistent with mild pulmonary hypertension. - PA cath removed 06/03 Plan: - Avoid hypoxia, acidosis - CTM Assessment & Plan (06/05/2023 10:31 AM EDT): Assessment: ECHO 05/15/23 with estimated RVSP of 48 mmHg, consistent with mild pulmonary hypertension. - PA cath removed 06/03 Plan: - Avoid hypoxia, acidosis - CTM Assessment & Plan (06/04/2023 10:06 AM EDT): Assessment: ECHO 05/15/23 with estimated RVSP of 48 mmHg, consistent with mild pulmonary hypertension. - PA cath removed 06/03 Plan: - Avoid hypoxia, acidosis - CTM Assessment & Plan (06/03/2023 3:18 AM EDT): Assessment: ECHO 05/15/23 with estimated RVSP of 48 mmHg, consistent with mild pulmonary hypertension. Plan: - Low PA pressures; volume and pressors for hypotension and low filling pressures Assessment & Plan (06/02/2023 2:27 PM EDT): Assessment: ECHO 05/15/23 with estimated RVSP of 48 mmHg, consistent with mild pulmonary hypertension. Plan: - Monitor PA pressures Hepatorenal syndrome 05/22/2023 Rash and nonspecific skin eruption 05/22/2023 Pruritus 05/22/2023 Pre-transplant evaluation for liver transplant 0 05/18/2023 Heart failure with preserved ejection fraction 0 05/18/2023 Assessment & Plan (06/28/2023 5:36 PM EDT): Assessment: Patient with HFpEF noted in problem list, on metoprolol and valsartan FILLETER ECHO 05/24/23: CONCLUSIONS: - Technically difficult exam [...] function is normal. Plan: -Continue to monitor Assessment & Plan (06/27/2023 2:46 PM EDT): Assessment: Patient with HFpEF noted in problem list, on metoprolol and valsartan FILLETER ECHO 05/24/23: CONCLUSIONS: - Technically difficult exam [...] function is normal. Plan: -Continue to monitor Assessment & Plan (06/26/2023 2:46 PM EDT): Assessment: Patient with HFpEF noted in problem list, on metoprolol and valsartan FILLETER ECHO 05/24/23: CONCLUSIONS: - Technically difficult exam [...] function is normal. Plan: -Continue to monitor Assessment & Plan (06/25/2023 4:57 PM EDT): Assessment: Patient with HFpEF noted in problem list, on metoprolol and valsartan FILLETER ECHO 05/24/23: CONCLUSIONS: - Technically difficult exam [...] function is normal. Plan: -Continue to monitor Assessment & Plan (06/24/2023 8:18 AM EDT): Assessment: Patient with HFpEF noted in problem list, on metoprolol and valsartan FILLETER ECHO 05/24/23: CONCLUSIONS: - Technically difficult exam [...] function is normal. Plan: -Continue to monitor Assessment & Plan (06/22/2023 12:55 PM EDT): Assessment: Patient with HFpEF noted in problem list, on metoprolol and valsartan FILLETER ECHO 05/24/23: CONCLUSIONS: - Technically difficult exam [...] function is normal. Plan: -Continue to monitor Assessment & Plan (06/21/2023 3:22 PM EDT): Assessment: Patient with HFpEF noted in problem list, on metoprolol and valsartan FILLETER ECHO 05/24/23: CONCLUSIONS: - Technically difficult exam [...] function is normal. Plan: -Continue to monitor Assessment & Plan (06/20/2023 3:28 PM EDT): Assessment: Patient with HFpEF noted in problem list, on metoprolol and valsartan FILLETER ECHO 05/24/23: CONCLUSIONS: - Technically difficult exam [...] function is normal. Plan: -Continue to monitor Assessment & Plan (06/06/2023 3:26 PM EDT): Assessment: Patient with HFpEF noted in problem list, on metoprolol and valsartan FILLETER ECHO 05/24/23: CONCLUSIONS: - Technically difficult exam [...] the major resting echocardiographic findings are comparable. Plan: -Continue to monitor -Can repeat post-op ECHO once on RNF NADER (acute kidney injury) 05/18/2023 Assessment & Plan (06/10/2023 2:47 PM EDT): Assessment: Baseline creatinine 0.5-1.0. Patient arrived to hospital with Cr 2.43. - 05/15 US kidney showed no hydronephrosis - Started on CRRT 05/26 - Did not tolerate iHD on 06/08 or 06/09 Plan: - Listed for PIRRT vs iHD per nephrology - Nephrology on board - Monitor electrolytes - Midodrine with dialysis per nephrology Assessment & Plan (06/09/2023 3:56 PM EDT): Assessment: Baseline creatinine 0.5-1.0. Patient arrived to hospital with Cr 2.43. - 05/15 US kidney showed no hydronephrosis - Started on CRRT 05/26 - Did not tolerate iHD on 06/08 Plan: - Re-try iHD today - Nephrology on board - Monitor electrolytes Assessment & Plan (06/08/2023 11:09 AM EDT): Assessment: Baseline creatinine 0.5-1.0. Patient arrived to hospital with Cr 2.43. - 05/15 US kidney showed no hydronephrosis - Started on CRRT 05/26 Plan: - CRRT stopped 06/07. Plan to transition to iHD. - Nephrology on board - Monitor electrolytes Assessment & Plan (06/06/2023 11:15 AM EDT): Assessment: Baseline creatinine 0.5-1.0. Patient arrived to hospital with Cr 2.43. - 05/15 US kidney showed no hydronephrosis - Started on CRRT 05/26 Plan: - Continue CRRT, increased UF to 150. - Nephrology on board - Monitor electrolytes Assessment & Plan (06/05/2023 10:32 AM EDT): Assessment: Baseline creatinine 0.5-1.0. Patient arrived to hospital with Cr 2.43. - 05/15 US kidney showed no hydronephrosis - Started on CRRT 05/26 Plan: - Continue CRRT, increased UF to 100. - Nephrology on board - Monitor electrolytes Assessment & Plan (06/04/2023 10:07 AM EDT): Assessment: Baseline creatinine 0.5-1.0. Patient arrived to hospital with Cr 2.43. - 05/15 US kidney showed no hydronephrosis - Started on CRRT 05/26 Plan: - Continue CRRT - Nephrology on board - Monitor electrolytes Assessment & Plan (06/03/2023 3:17 AM EDT): Assessment: Baseline creatinine 0.5-1.0. Patient arrived to hospital with Cr 2.43. - 05/15 US kidney showed no hydronephrosis - Started on CRRT 05/26 Plan: - Continue CRRT 06/03 - Nephrology on board Assessment & Plan (06/02/2023 2:41 PM EDT): Assessment: Baseline creatinine 0.5-1.0. Patient arrived to hospital with Cr 2.43. - 05/15 US kidney showed no hydronephrosis - Started on CRRT 05/26 Plan: - Continue CRRT - Nephrology on board Obesity, Class III, BMI >= 40 05/18/2023 Skin cancer screening 05/18/2023 Morbid obesity 05/16/2023 Dysphagia 05/15/2023 Malnutrition of moderate degree 05/15/2023 Assessment & Plan (06/10/2023 2:48 PM EDT): Assessment: alcohol cirrhosis s/p OLT. Plan: - Nutrition on board - Advance Tube feeds Assessment & Plan (06/09/2023 3:54 PM EDT): Assessment: alcohol cirrhosis s/p OLT. Plan: - Nutrition on board - Advance Tube feeds - f/u PM BMP and monitor lytes/for refeeding syndrome Assessment & Plan (06/08/2023 11:08 AM EDT): Assessment: alcohol cirrhosis s/p OLT. Plan: - Nutrition on board - Advance Tube feeds - f/u PM BMP and monitor lytes/for refeeding syndrome Assessment & Plan (06/07/2023 11:50 AM EDT): Nutrition consult Plan - restart TF when ok with primary team - f/u PM BMP and monitor lytes/for refeeding syndrome Hyperammonemia 05/11/2023 05/14/2023 Acute kidney injury 05/11/2023 05/14/2023 Assessment & Plan (06/28/2023 5:35 PM EDT): Assessment: - Baseline Cr 0.5-1.0 - On [...] monitoring electrolytes - Continue to monitor I/Os Assessment & Plan (06/27/2023 2:40 PM EDT): Assessment: - Baseline Cr 0.5-1.0 - On [...] monitoring electrolytes - Continue to monitor I/Os Assessment & Plan (06/26/2023 2:41 PM EDT): Assessment: - Baseline Cr 0.5-1.0 - On [...] monitoring electrolytes - Continue to monitor I/Os Assessment & Plan (06/25/2023 4:56 PM EDT): Assessment: - Baseline Cr 0.5-1.0 - On [...] monitoring electrolytes - Continue to monitor I/Os Assessment & Plan (06/24/2023 12:00 PM EDT): Assessment: - Baseline Cr 0.5-1.0 - On [...] monitoring electrolytes - Continue to monitor I/Os - Lasix IV 80mg once Assessment & Plan (06/22/2023 12:55 PM EDT): Assessment: - Baseline Cr 0.5-1.0 - On [...] monitoring electrolytes - Continue to monitor I/Os Assessment & Plan (06/21/2023 3:22 PM EDT): Assessment: - Baseline Cr 0.5-1.0 - On [...] dialysis management -IHD Sunday, Sunday and Sunday and then UF on the other days - Midodrine 10 mg prn with dialysis per Nephrology recs - Continue Midodrine 5 mg TID - Daily CMP to continue monitoring electrolytes - Continue to monitor I/Os Assessment & Plan (06/20/2023 3:20 PM EDT): Assessment: - Baseline Cr 0.5-1.0 - On [...] dialysis management -IHD Sunday, Sunday and Sunday and then UF on the other days - Midodrine 10 mg prn with dialysis per Nephrology recs - Continue Midodrine 5 mg TID - Daily CMP to continue monitoring electrolytes - Continue to monitor I/Os -plan for TDC today Assessment & Plan (06/19/2023 4:35 PM EDT): Assessment: - Baseline Cr 0.5-1.0 - On [...] dialysis management -IHD Sunday, Sunday and Sunday and then UF on the other days - Midodrine 10 mg prn with dialysis per Nephrology recs - Continue Midodrine 5 mg TID - Daily CMP to continue monitoring electrolytes - Continue to monitor I/Os -plan for TDC tomorrow Assessment & Plan (06/18/2023 5:02 PM EDT): - Baseline Cr 0.5-1.0 - On admission, [...] iHD. - Patient is currently not making urine Plan: - Nephrology is following, appreciate recommendations and dialysis management - Patient currently undergoing daily IHD w vol removal - Midodrine 10 mg prn with dialysis per Nephrology recs - Continue Midodrine 5 mg TID - Daily CMP to continue monitoring electrolytes - Continue to monitor I/Os Assessment & Plan (06/07/2023 11:49 AM EDT): On CRRT Currently UF is at 50 Neg negative -2L yesterday Plan - Per nephrology reason 9/20; plan to stop CRRT today; appreciate recs - LR started at 100cc/hour Assessment & Plan (06/06/2023 2:07 PM EDT): Assessment: - Baseline Cr 0.5-1.0 - On admission, Cr was 2.43. - US on 05/15 showed no hydronephrosis - On 05/26, the patient was started on CRRT. - Patient continues on CVVHD following liver txp, UO remains minimal (5 cc in the last 24h) Plan: - Continue CRRT - Nephrology is following, appreciate recommendations - Daily CMP to continue monitoring electrolytes - Continue to monitor I/Os Cirrhosis of liver with ascites 05/11/2023 05/14/2023 Type 2 diabetes mellitus with obesity 01/04/2018 05/14/2023 Assessment & Plan (06/28/2023 5:35 PM EDT): Assessment: - Home meds: Metformin and Novolog 7 units TID with meals. - 05/14 A1C was 4.3% Plan: - Continue to hold home meds - endocrinology consulted, signed off on 06/16/23 - hold SSI and monitor AM BS level (06/22) Assessment & Plan (06/27/2023 2:41 PM EDT): Assessment: - Home meds: Metformin and Novolog 7 units TID with meals. - 05/14 A1C was 4.3% Plan: - Continue to hold home meds - endocrinology consulted, signed off on 06/16/23 - hold SSI and monitor AM BS level (06/22) Assessment & Plan (06/26/2023 2:43 PM EDT): Assessment: - Home meds: Metformin and Novolog 7 units TID with meals. - 05/14 A1C was 4.3% Plan: - Continue to hold home meds - endocrinology consulted, signed off on 06/16/23 - hold SSI and monitor AM BS level (06/22) Assessment & Plan (06/25/2023 4:56 PM EDT): Assessment: - Home meds: Metformin and Novolog 7 units TID with meals. - 05/14 A1C was 4.3% Plan: - Continue to hold home meds - endocrinology consulted, signed off on 06/16/23 - hold SSI and monitor AM BS level (06/22) Assessment & Plan (06/24/2023 8:17 AM EDT): Assessment: - Home meds: Metformin and Novolog 7 units TID with meals. - 05/14 A1C was 4.3% Plan: - Continue to hold home meds - endocrinology consulted, signed off on 06/16/23 - hold SSI and monitor AM BS level (06/22) Assessment & Plan (06/22/2023 12:52 PM EDT): Assessment: - Home meds: Metformin and Novolog 7 units TID with meals. - 05/14 A1C was 4.3% Plan: - Continue to hold home meds - endocrinology consulted, signed off on 06/16/23 - hold SSI and monitor AM BS level (06/22) Assessment & Plan (06/21/2023 3:22 PM EDT): Assessment: - Home meds: Metformin and Novolog 7 units TID with meals. - 05/14 A1C was 4.3% Plan: - Continue to hold home meds - SSI - endocrinology consulted, signed off on 06/16/23 Assessment & Plan (06/20/2023 3:24 PM EDT): Assessment: - Home meds: Metformin and Novolog 7 units TID with meals. - 05/14 A1C was 4.3% Plan: - Continue to hold home meds - SSI - endocrinology consulted, signed off on 06/16/23 Assessment & Plan (06/09/2023 3:53 PM EDT): Assessment: Hx of T2DM. - Home meds: Metformin and Novolog 7 units TID with meals - 05/14 A1C 4.3% Plan: - SSI 3 - Hold home meds Assessment & Plan (06/08/2023 11:10 AM EDT): Assessment: Hx of T2DM. - Home meds: Metformin and Novolog 7 units TID with meals - 8 A1C 4.3% Plan: - SSI 3 - Hold home meds Assessment & Plan (06/07/2023 11:26 AM EDT): Assessment: Hx of T2DM. - Home meds: Metformin and Novolog 7 units TID with meals - 8 A1C 4.3% Plan: - SSI 3 - Hold home meds Assessment & Plan (06/06/2023 2:03 PM EDT): Assessment: - Home meds: Metformin and Novolog 7 units TID with meals. - 8 A1C was 4.3% Plan: - Continue to hold home meds - SSI, insulin per SICU - Consult endocrine once patient is on the RNF Assessment & Plan (06/06/2023 11:15 AM EDT): Assessment: Hx of T2DM. - Home meds: Metformin and Novolog 7 units TID with meals - 05/14 A1C 4.3% Plan: - SSI 3 - Hold home meds Assessment & Plan (06/05/2023 10:32 AM EDT): Assessment: Hx of T2DM. - Home meds: Metformin and Novolog 7 units TID with meals - 8 A1C 4.3% Plan: - SSI 3 - Hold home meds Assessment & Plan (06/04/2023 10:08 AM EDT): Assessment: Hx of T2DM. - Home meds: Metformin and Novolog 7 units TID with meals - 8 A1C 4.3% Plan: - Hold home meds - Continue insulin gtt Assessment & Plan (06/03/2023 3:16 AM EDT): Assessment: Hx of T2DM. - Home meds: Metformin and Novolog 7 units TID with meals - 8 A1C 4.3% Plan: - Insulin drip Assessment & Plan (06/02/2023 2:33 PM EDT): Assessment: Hx of T2DM. - Home meds: Metformin and Novolog 7 units TID with meals - 05/14 A1C 4.3% Plan: - SSI2 - Monitor glucose q6 Obstructive sleep apnea syndrome 01/04/2018 05/14/2023 Assessment & Plan (06/28/2023 5:35 PM EDT): Assessment: Patient with hx of REGINALD, reportedly no CPAP at home on room air Plan: -monitor respiratory status -See resp insufficiency Assessment & Plan (06/27/2023 2:46 PM EDT): Assessment: Patient with hx of REGINALD, reportedly no CPAP at home on room air Plan: -monitor respiratory status -See resp insufficiency Assessment & Plan (06/26/2023 2:46 PM EDT): Assessment: Patient with hx of REGINALD, reportedly no CPAP at home on room air Plan: -monitor respiratory status -See resp insufficiency Assessment & Plan (06/25/2023 4:57 PM EDT): Assessment: Patient with hx of REGINALD, reportedly no CPAP at home on room air Plan: -monitor respiratory status -See resp insufficiency Assessment & Plan (06/24/2023 8:18 AM EDT): Assessment: Patient with hx of REGINALD, reportedly no CPAP at home on room air Plan: -monitor respiratory status -See resp insufficiency Assessment & Plan (06/22/2023 12:53 PM EDT): Assessment: Patient with hx of REGINALD, reportedly no CPAP at home on room air Plan: -monitor respiratory status -See resp insufficiency Assessment & Plan (06/21/2023 3:22 PM EDT): Assessment: Patient with hx of REGINALD, reportedly no CPAP at home on room air Plan: -monitor respiratory status -See resp insufficiency Assessment & Plan (06/20/2023 3:28 PM EDT): Assessment: Patient with hx of REGINALD, reportedly no CPAP at home on room air Plan: -monitor respiratory status -See resp insufficiency Assessment & Plan (06/19/2023 4:44 PM EDT): Assessment: Patient with hx of REGINALD, reportedly no CPAP at home on room air Plan: -monitor respiratory status -See resp insufficiency Assessment & Plan (06/18/2023 5:05 PM EDT): Assessment: Patient with hx of REGINALD, reportedly no CPAP at home Patient currently intubated Plan: -Vent settings per SICU -Continue to monitor, will need to consider need for CPAP after extubation -See resp insufficiency Assessment & Plan (06/09/2023 3:53 PM EDT): Assessment: Hx of REGINALD. Does not wear CPAP at home. Plan: - Stable on 2L NC Assessment & Plan (06/08/2023 11:06 AM EDT): Assessment: Hx of REGINALD. Does not wear CPAP at home. Plan: - Stable on 2L NC Assessment & Plan (06/07/2023 11:42 AM EDT): Assessment: Hx of REGINALD. Does not wear CPAP at home. Plan: - WTE - may need CPAP at night Assessment & Plan (06/06/2023 2:04 PM EDT): Assessment: Patient with hx of REGINALD, reportedly no CPAP at home Patient currently intubated Plan: -Vent settings per SICU -Continue to monitor, will need to consider need for CPAP after extubation -See resp insufficiency Assessment & Plan (06/06/2023 11:14 AM EDT): Assessment: Hx of REGINALD. Does not wear CPAP at home. Plan: - When extubated, may need CPAP at night. Assessment & Plan (06/05/2023 10:31 AM EDT): Assessment: Hx of REGINALD. Does not wear CPAP at home. Plan: - When extubated, may need CPAP at night. Assessment & Plan (06/04/2023 9:20 AM EDT): Assessment: Hx of REGINALD. Does not wear CPAP at home. Plan: - When extubated, may need CPAP at night. Assessment & Plan (06/03/2023 3:17 AM EDT): Assessment: Hx of REGINALD. Does not wear CPAP at home. Plan: - When extubated, may need CPAP at night. Assessment & Plan (06/02/2023 2:46 PM EDT): Assessment: Hx of REGNIALD. Does not wear CPAP at home. Plan: - When extubated, may need CPAP at night. Resolved Problems Problem Noted Date Diagnosed Date Resolved Date Fungemia 07/28/2023 07/28/2023 Acute postoperative respiratory insufficiency 06/04/20 23 06/08/2023 Assessment & Plan (06/07/2023 11:51 AM EDT): Intubated and sedated on precedex Plan - WTE Assessment & Plan (06/06/2023 3:38 PM EDT): Assessment: - Patient arrived to the SICU intubated, sedated, and on pressors. - Patient remains intubated and sedated Plan: - Vent settings per SICU Hyponatremia 05/25/2023 06/03/2023 Decompensation of cirrhosis of liver 05/14/2023 06/22/2023 Essential hypertension 11/29/2017 05/14/202306/03 Assessment & Plan (06/02/2023 2:25 PM EDT): Assessment: On metoprolol 25 BID and valsartain 320 at home Plan: - Hold home meds Encounters Date Type Department Care Team Description 04/06/2025 Refill Transplant [facility] [address] [id number] Kimberly Madrigal, RN Rx Refills 04/06/2025 [facility] Patient Msg Transplant Center [address] [address] Kimberly Madrigal, RN Vitamin d deficiency 03/31/2025 Results Follow-Up Transplant Center [address] [place] [phone] Teddy Diehl RN 03/31/2025 Travel 03/24/2025 [place] [address] Provider, Ccf Sign up to manage your digestive symptoms in between visits, covered by insurance 03/12/2025 Orders Only Transplant Center [address] [address] Kimberly Madrigal, RN 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) (Primary Dx); Vitamin D deficiency 03/10/2025 Patient [facility] [address] [address] Ene Chanel LISW Social Work Appt 02/24/2025 Results Follow-Up Transplant Center [address] [place] [phone] Dianne Naidu RN 02/05/2025 Telephone Transplant Center [address] [place] [id number] Ene Chanel LISW 02/03/2025 10:40 AM EDT Office Visit Transplant Center [address] [place] [id number] Clinic, Kidney Txp 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) (Primary Dx); Immunosuppressed status ([facility]); Transplanted kidney ([facility]); Immunosuppressive management encounter following kidney transplant ([facility]); Essential hypertension; Screening for viral disease; Need for pneumocystis prophylaxis 01/30/2025 Orders Only Transplant Center [address] [address] Julieta Vaughn MD 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) 01/26/2025 Telephone Transplant Center [address] [place] [phone] Kimberly Madrigal, MINAL High TAC level 12.2 01/22/2025 Patient [facility] [address] [address] Provider, Ccf Upcoming [employer] [facility] for Transplant Recipients & Donor Families 01/21/2025 Travel 01/16/2025 Orders Only Transplant Center [address] [place] [phone] Francois Allison MD 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) 01/13/2025 [place] [address] Provider, Ccf Important information about your scheduled Allergy and Immunology appointment 01/09/2025 Results Follow-Up Transplant Center [address] [phone] Teddy Diehl RN from Last 3 Months Immunizations Immunization Administration Dates Next Due COVID-19 original vaccine, a ge 12+ yr, monovalent (PFIZER-BIONTECH - PURPLE TOP) 03/03/2021,02/10/2021 influenza (IIV4) vaccine, ag e 6 mo - 64 yr, quadrivalent (AFLURIA, FLULAVAL, FLUZONE) 08/16/2023 influenza (IIV4) vaccine, ag e 6 mo - 64 yr, quadrivalent, PF (AFLURIA, FLUARIX, FLULAVAL, FLUZONE) 06/26/2020 pneumococcal conjugate (PCV2 0) vaccine, 20 valent (PREVNAR 20) 05/19/2023 tetanus diphtheria pertussis (Tdap) vaccine, age 7+ yr (ADACEL, BOOSTRIX) 05/19/2023,11/19/2013 zoster (RZV) vaccine, recomb inant (SHINGRIX) 05/22/2023(Deferred: - Per resident do not administer this dose; per ID note patient not to receive dose until listed for liver transplant due to insurance. Pharmacy made aware),05/22/2023(Deferred: - medication retimed due to med being late from pharmacy) Family History Medical History Relation Comments Diabetes Father Hypertension Father Arthritis Mother Hypertension Mother Relation Status Comments Father Mother Social History Tobacco Use Types Packs/Day Years Used Date Smoking Tobacco: Former Cigarettes Smokeless Tobacco: Never Tobacco Cessation:Counseling Given: No Alcohol Use Standard Drinks/Week Comments Not Currently 0 (1 standard drink = 0.6 oz pur e alcohol) [facility] Utilities Answer Date Recorded In the past 12 months has [employer] [place], gas, oil, or water [employer] threatened to shut off services in your [...] any time in the past 12 m [facility], were you homeless or living in a longterm (including now)? No 08/11/2024 Area Deprivation Index Answer Date Justin rded National Score (1-100), lower number is lower ri sk 88 05/17/2023 State Score (1-10), lower number is lower risk 8 05/17/2023 Data from: https://www.neighborhoodatlas.medicine.[facility].edu/. Last address used for calculation [address] 05/17/2023 Comments No Sex and Gender Information Value Date Recorded Sex Assigned at Not on file Legal Sex Female 2:40 AM EDT Gender Identity Not on file Sexual Orientation Not on file Last Filed Vital Signs Vital Sign Reading Time Taken Comments Blood Pressure 142/85 02/03/2025 10:42 AM EDT Pulse 59 02/03/2025 10:42 AM EDT Temperature 36.7 C (98.1 F) 02/03/2025 10:42 AM EDT Respiratory Rate 14 09/23/2024 12:25 PM EST Oxygen Saturation 94% 02/03/2025 10:42 AM EDT Inhaled Oxygen Concentration - - Weight 96.8 kg (213 lb 6.5 oz) 02/03/2025 10:42 AM EDT Height 165.1 cm (5' 5 ) 02/03/2025 10:42 AM EDT Body Mass Index 35.51 02/03/2025 10:42 AM EDT Plan of Treatment Upcoming Encounters Date Type Department Care Team (Late st Contact Info) Description 05/06/2025 11:00 AM EDT Office Visit Transplant Center [address] [address] Clinic, Kidney Txp [address] [place] [address] Kid Txp - follow up appointment in Transplant clinic on 05/06/2025 Health Maintenance Due Date Last Done Comments HPV Vaccine: Recommended Bas ed On Risk 1979 Dilated Retinal Exam 11/27/1989 Annual PCP Team Chronic Dise ase Visit 11/27/1997 Anxiety Screening 11/27/1997 Depression Screening 11/27/1997 Hepatitis A Vaccine (1 of 2 - Risk 2-dose series) 11/27/1998 Shingrix Vaccine (2 of 2) 07/17/2023 05/22/2023 Diabetic Foot Exam 05/09/2024 05/09/2023 Urine Albumin:Creatinine Ratio 05/13/2024 0 05/13/2023, 01/23/2023, 08/13/2018 Cervical Cancer Screening 05/18/2024 05/18/2023, 09/2022 CT Colonography 11/27/2024 Cologuard (FIT-DNA) 11/27/2024 Colonoscopy 11/27/2024 Colorectal Cancer Screening 11/27/2024 Fecal Occult Blood 11/27/2024 05/11/2023 Sigmoidoscopy 11/27/2024 HbA1C 04/02/2025 10/03/2024, 08/04/2023, 01/23/2023, Additional history exists Influenza Vaccine (#1) 2025 , 06/26/2020, 07/09/2018, Additional history exists Mammogram Screening 03/18/2026 03/18/2025, 03/18/2025, 12/10/2023, Additional history exists LDL Cholesterol 03/31/2026 03/31/2025, 04/19, 05/14/2023 Serum Creatinine 03/31/2026 03/31/2025, 06/2025, 02/03/2025, Additional history exists DTaP,Tdap,Td Vaccine (3 - Td or Tdap) 05/19/2033 05/19/2023, 11/19/2013 Pneumococcal Vaccine Completed 05/19/2023 HIV Screening Completed 07/24/2024, 11/15, 07/05/2023, Additional history exists Hepatitis C Screening Completed 08/28/2024 , 07/24/2024, 07/24/2024, Additional history exists Medical Devices Implanted Type Area Banking Pin Adjuster Device Identifier Shelf Expiration Date Model / Serial / Lot Catheter Glidepath 14.5fr Straight Polyurethane 28cm 23cm Hemodialysis Kit - [id number] Implanted:Qty: 1 on 05/29/2023 at [facility] Catheter Right: Chest BaseKit PERIPHERAL [employer]ULAR 01/14/2025 [id number] / / [id number] Stent Inlay [place] 4.7fr Taper [place] Green Polymer Phreecoat 14cm Ureteral - [id number] Implanted:Qty: 1 on 07/24/2024 at [facility] Urologic Stents N/A: Ureter [employer] 12/15/2028 [id number] / / [id number] Procedures Procedure Name Priority Date/Time Associated Diagnosis Comments VITAMIN D 25 HYDROXY Routine 03/31/2025 9:24 AM EDT Kidney replaced by transplant ([facility]) Vitamin D deficiency PTH INTACT BLD Routine 03/31/2025 9:24 AM EDT Kidney replaced by transplant ([facility]) Vitamin D deficiency LIPID PANEL, FASTING Routine 03/31/2025 9:24 AM EDT Kidney replaced by transplant ([facility]) Vitamin D deficiency PHOSPHATIDYLETHANOL (PETH) Routine 03/31/2025 9:24 AM EDT Liver replaced by transplant ([facility]) Encounter for therapeutic drug level monitoring OXALATE Routine 03/31/2025 9:24 AM EDT Bariatric surgery status CYTOMEGALOVIRUS (CMV) DNA, QUANTITATIVE PCR, PLASMA Routine 03/31/2025 9:24 AM EDT Kidney replaced by transplant ([facility]) BK VIRUS (BKV) DNA, QUANTITATIVE PCR, PLASMA Routine 03/31/2025 9:24 AM EDT 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) TACROLIMUS/FK-506 BL Routine 03/31/2025 9:24 AM EDT Disorder of liver Liver replaced by transplant (HCC) PHOSPHORUS INORGANIC Routine 03/31/2025 9:24 AM EDT Disorder of liver Liver replaced by transplant (HCC) MAGNESIUM BLD Routine 03/31/2025 9:24 AM EDT Disorder of liver Liver replaced by transplant (HCC) GGT BLD Routine 03/31/2025 9:24 AM EDT Disorder of liver Liver replaced by transplant (HCC) COMPREHENSIVE METABOLIC PANEL Routine 03/31/2025 9:24 AM EDT Disorder of liver Liver replaced by transplant (HCC) CBC + DIFF Routine 03/31/2025 9:24 AM EDT Disorder of liver Liver replaced by transplant (HCC) OXALATE Routine 02/24/2025 11:53 AM EDT Bariatric surgery status CYTOMEGALOVIRUS (CMV) DNA, QUANTITATIVE PCR, PLASMA Routine 02/24/2025 11:53 AM EDT 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) TACROLIMUS/FK-506 BL Routine 02/24/2025 11:53 AM EDT Disorder of liver Liver replaced by transplant (HCC) PHOSPHORUS INORGANIC Routine 02/24/2025 11:53 AM EDT Disorder of liver Liver replaced by transplant (HCC) MAGNESIUM BLD Routine 02/24/2025 11:53 AM EDT Disorder of liver Liver replaced by transplant (HCC) GGT BLD Routine 02/24/2025 11:53 AM EDT Disorder of liver Liver replaced by transplant (HCC) COMPREHENSIVE METABOLIC PANEL Routine 02/24/2025 11:53 AM EDT Disorder of liver Liver replaced by transplant (HCC) CBC + DIFF Routine 02/24/2025 11:53 AM EDT Disorder of liver Liver replaced by transplant (HCC) UA DIP, URINE (POC) Routine 02/03/2025 10:49 AM EDT PROTEIN CREATININE RATIO Routine 025 10:39 AM EDT 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) PHOSPHATIDYLETHANOL (PETH) Routine 02/03/2025 10:37 AM EDT Liver replaced by transplant (HCC) Encounter for therapeutic drug level monitoring OXALATE Routine 02/03/2025 10:37 AM EDT Bariatric surgery status CBC + DIFF STAT 02/03/2025 10:37 AM EDT 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) COMPREHENSIVE METABOLIC PANEL STAT 02/03/2025 10:37 AM EDT 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) MAGNESIUM BLD STAT 02/03/2025 10:37 AM EDT Kidney replaced by transplant ([facility]) PHOSPHORUS INORGANIC STAT 02/03/2025 10:37 AM EDT Kidney replaced by transplant ([facility]) CYTOMEGALOVIRUS (CMV) DNA, QUANTITATIVE PCR, PLASMA Routine 02/03/2025 10:37 AM EDT Kidney replaced by transplant ([facility]) BK VIRUS (BKV) DNA, QUANTITATIVE PCR, PLASMA Routine 02/03/2025 10:37 AM EDT Kidney replaced by transplant ([facility]) TACROLIMUS/FK-506 BL Routine 02/03/2025 10:37 AM EDT Disorder of liver Liver replaced by transplant (HCC) GGT BLD Routine 02/03/2025 10:37 AM EDT Disorder of liver Liver replaced by transplant ([facility]) PHOSPHATIDYLETHANOL (PETH) Routine 01/28/2025 11:50 AM EDT Liver replaced by transplant (HCC) Encounter for therapeutic drug level monitoring CBC + DIFF STAT 01/28/2025 11:50 AM EDT 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) COMPREHENSIVE METABOLIC PANEL STAT 01/28/2025 11:50 AM EDT 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) MAGNESIUM BLD STAT 01/28/2025 11:50 AM EDT 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) PHOSPHORUS INORGANIC STAT 01/28/2025 11:50 AM EDT 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) BK VIRUS (BKV) DNA, QUANTITATIVE PCR, PLASMA Routine 01/28/2025 11:50 AM EDT 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) TACROLIMUS/FK-506 BL Routine 01/28/2025 11:50 AM EDT Disorder of liver Liver replaced by transplant (HCC) GGT BLD Routine 01/28/2025 11:50 AM EDT Disorder of liver Liver replaced by transplant ([facility]) ALLOGEN POST-TX DSA RPT Routine 01/23/20 25 8:16 AM EDT KID/WARE REC POST TX DSA Routine 01/22/20 25 10:03 AM EDT Kidney replaced by transplant ([facility]) OXALATE Routine 01/21/2025 10:03 AM EDT Bariatric surgery status CBC + DIFF STAT 01/21/2025 10:03 AM EDT Kidney replaced by transplant ([facility]) COMPREHENSIVE METABOLIC PANEL STAT 01/21/2025 10:03 AM EDT Kidney replaced by transplant ([facility]) MAGNESIUM BLD STAT 01/21/2025 10:03 AM EDT Kidney replaced by transplant ([facility]) PHOSPHORUS INORGANIC STAT 01/21/2025 10:03 AM EDT Kidney replaced by transplant ([facility]) TACROLIMUS/FK-506 BL Routine 01/21/2025 10:03 AM EDT Kidney replaced by transplant ([facility]) CYTOMEGALOVIRUS (CMV) DNA, QUANTITATIVE PCR, PLASMA Routine 01/21/2025 10:03 AM EDT Kidney replaced by transplant ([facility]) CBC + DIFF STAT 01/09/2025 9:38 AM EDT Kidney replaced by transplant ([facility]) COMPREHENSIVE METABOLIC PANEL STAT 01/09/2025 9:38 AM EDT Kidney replaced by transplant ([facility]) MAGNESIUM BLD STAT 01/09/2025 9:38 AM EDT Kidney replaced by transplant ([facility]) PHOSPHORUS INORGANIC STAT 01/09/2025 9:38 AM EDT Kidney replaced by transplant ([facility]) TACROLIMUS/FK-506 BL Routine 01/09/2025 9:38 AM EDT Kidney replaced by transplant ([facility]) HEMOGLOBIN A1C Routine 10/03/2024 10:02 AM EST Type 2 diabetes mellitus with hyperglycaemia ([facility]) HEPATITIS C VIRUS (HCV) RNA, QUANTITATIVE PCR, PLASMA/SERUM Routine 08/28/2024 11:21 AM EST At risk for infection transmitted from donor HIV 1/2 COMBO WITH REFLEX TO DIFFERENTIATION STAT 07/24/2024 12:33 PM EST PAP FLUID VAGINAL VAULT SCREENING Routine 05/18/2023 10:34 AM EDT from Last 3 Months or Most Recently Relevant to Health Maintenance Results * MAGNESIUM (03/31/2025 9:24 AM EDT) Only the most recent of6 resultswithin the time period is included. Magnesium 1.8 1.7 - 2.3 mg/dL 03/31/2025 10:[address] [facility] Blood BLOOD SPECIMEN / Unknown Venipuncture / Unknown 03/31/2025 9:24 AM EDT 03/31/2025 9:24 AM EDT us Elizabeth Morejon CLINICAL RESEARCH COORDINATOR.CUSTOMS DIRECTOR LABORATORY Final R esult [facility] [address] [place] [address] * PHOSPHATIDYLETHANOL (PETH) (03/31/2025 9:24 AM EDT) Only the most recent of3 resultswithin the time period is included. PEth 16:0/18:1 (POPEth) 10 ng/mL 04/03/2025 9:32 PM EDT [facility] Comment: PEth 16:0/18:1 (POPEth) Less than 10 ng/mL............Not detected Less than 20 ng/mL............Abstinence or light alcohol consumption 20 - 200 ng/mL................Moderate alcohol consumption Greater than 200 ng/mL........Heavy alcohol consumption or chronic alcohol use (Reference: Michael Spear and Gail Lucero 2018 J. Forensic Sci) PEth 16:0/18.2 (PLPEth) <10 ng/mL 04/03/2025 9:32 PM EDT [facility] Comment:Reference ranges are not well established. EER Peth See Note 04/03/2025 9:32 PM EDT [facility] Comment: Authorized individuals can access the [employer] Enhanced Report with an [employer] Connect account using the following link. Your local lab can assist you in obtaining the patient report if you don't have a Connect account. [email or web address] PEth Interpretation See Comment 04/03/2025 9:32 PM EDT [facility] Comment: Phosphatidylethanol (PEth) is a group of phospholipids formed in the presence of ethanol, phospholipase D and phosphatidylcholine. PEth is known to be a direct alcohol biomarker. The predominant PEth homologues are PEth 16:0/18:1 (POPEth) and PEth 16:0/18:2 (PLPEth), which account for 37-46% and 26-28% of the total PEth homologues, respectively. PEth is incorporated into the phospholipid membrane of red blood cells and has a general half-life of 4-10 days and a window of detection of 2-4 weeks. However, the window of detection is longer in individuals who chronically or excessively consume alcohol. The limit of quantification is 10 ng/mL. Serial monitoring of PEth may be helpful in monitoring alcohol abstinence over time. PEth results should be interpreted in the context of the patient's clinical and behavioral history. Patients with advanced liver disease may have falsely elevated PEth concentrations (Indu GARCIA et al 2018, Alcoholism Clinical & Experimental Research). This test was developed and its performance characteristics determined by [facility]. It has not been cleared or approved by the U.S. Food and Drug Administration. This test was performed in a CLIA-certified laboratory and is intended for clinical purposes. Performed By: [facility] [address] [place] [address] Landscape Painter: Pedro Vinson MD, PhD CLIA Number: [id number] Blood BLOOD SPECIMEN / Unknown Venipuncture / Unknown 03/31/2025 9:24 AM EDT 03/31/2025 9:24 AM EDT Elizabeth Morejon APRN.[facility] Final R esult [facility] [address] [place] [address] * CYTOMEGALOVIRUS (CMV) DNA, QUANTITATIVE PCR, PLASMA (03/31/2025 9:24 AM EDT) Only the most recent of4 resultswithin the time period is included. CMV DNA Not detected Not Detected DOMINGA AVERY 6800 04/01/2025 2:23 AM EDT [facility] Blood BLOOD SPECIMEN / Unknown Venipuncture / Unknown 03/31/2025 9:24 AM EDT 03/31/2025 9:24 AM EDT Narrative [facility] - 04/01/2025 2:23 AM EDT [facility]very CMV is an in vitro nucleic acid amplification test for the quantitation of cytomegalovirus (CMV) DNA in human EDTA plasma. The linear range of the assay is 34.5 to 10,000,000 IU/mL (1.54 - 7.00 log IU/mL). The lower limit of detection of the assay is 34.5 IU/mL. us Jacqueline Servin MD LABORATORY Final Result Performing Organization Address [facility] Co de Phone Number [facility] [address] [place] [address], [place] * (ABNORMAL) OXALATE (03/31/2025 9:24 AM EDT) Only the most recent of4 resultswithin the time period is included. Oxalate, Plasma 4.1(H) <2.0 umol/L 04/01/2025 12:55 PM EDT [facility] Blood BLOOD SPECIMEN / Unknown Venipuncture / Unknown 03/31/2025 9:24 AM EDT 03/31/2025 9:24 AM EDT Narrative [facility] - 04/01/2025 12:55 PM EDT This test was developed, and its performance characteristics determined by the [facility] Department of Pathology and Laboratory Medicine. It has not been cleared or approved by the FDA. The [facility] Department of Pathology and Laboratory Medicine is regulated under CLIA as qualified to perform high- complexity testing. This test is used for clinical purposes. It should not be regarded as investigational or for research. us Jacqueline Servin MD LABORATORY Final Result Performing Organization Address [facility] Co de Phone Number [facility] [address] [place], [place] [id number], [place] * BK VIRUS (BKV) DNA, QUANTITATIVE PCR, PLASMA (03/31/2025 9:24 AM EDT) Only the most recent of3 resultswithin the time period is included. [facility] BKV DNA Not detected Not detected DOMINGA AVERY 6800 04/01/2025 10:24 AM EDT [facility] Blood BLOOD SPECIMEN / Unknown Venipuncture / Unknown 03/31/2025 9:24 AM EDT 03/31/2025 9:24 AM EDT Narrative [facility] - 04/01/2025 10:24 AM EDT [facility]very BKV is an in vitro nucleic acid amplification test for the quantitation of BK virus (BKV) DNA in human EDTA plasma and urine stabilized in avery [employer] Media. The linear range of the assay in EDTA plasma is 21.5 to 100,000,000 IU/mL (1.33 - 8.00 log IU/mL). The lower limit of detection of the assay in EDTA plasma is 21.5 IU/mL. Jacqueline Servin MD LABORATORY Final Result Performing Organization Address City/[facility]/ZIP Co de Phone Number [facility] [address] [place] [address], [place] * (ABNORMAL) VITAMIN D 25 HYDROXY (03/31/2025 9:24 AM EDT) [facility] Vitamin D 25 Hydroxy 12.8(L) 31.0 - 80.0 ng/mL 03/31/2025 10:28 PM EDT [facility] Blood BLOOD SPECIMEN / Unknown Venipuncture / Unknown 03/31/2025 9:24 AM EDT 03/31/2025 9:24 AM EDT Jacqueline Servin MD LABORATORY Final Result Performing Organization Address City/[facility]/ZIP Co de Phone Number [facility] [address] [place] [address], [place] * TACROLIMUS/FK-506 BL (03/31/2025 9:24 AM EDT) Only the most recent of6 resultswithin the time period is included. [facility] Tacrolimus/FK506 10.2 5.0 - 20.0 ng/mL 04/01/2025 3:05 PM EDT [facility] Comment:Individualized targe t levels for a given patient will depend on many factors (including the type of organ transplant, time since transplantation, concurrent medications, and other clinical factors), and should be assessed by those health care providers experienced in the management of immunosuppression. Reference ranges and high/low indicator flags are provided as general guidelines only. The treating physician must determine appropriate target levels/dosing based on the specific clinical situation. Test performed by chemiluminescent immunoassay using [employer] i. Blood BLOOD SPECIMEN / Unknown Venipuncture / Unknown 03/31/2025 9:24 AM EDT 03/31/2025 9:24 AM EDT Elizabeth Morejon CLINICAL RESEARCH COORDINATOR.CUSTOMS DIRECTOR LABORATORY Final R esult [facility] [address] [address], * PHOSPHORUS INORGANIC (03/31/2025 9:24 AM EDT) Only the most recent of6 resultswithin the time period is included. Phosphorus 3.7 2.7 - 4.8 mg/dL 03/31/2025 10:[address] [facility] Blood BLOOD SPECIMEN / Unknown Venipuncture / Unknown 03/31/2025 9:24 AM EDT 03/31/2025 9:24 AM EDT Elizabeth Morejon CLINICAL RESEARCH COORDINATOR.CUSTOMS DIRECTOR LABORATORY Final R esult [facility] [address] [place] [address] * (ABNORMAL) PTH INTACT (03/31/2025 9:24 AM EDT) PTH, Intact 89(H) 15 - 65 pg/mL 03/31/2025 5:39 PM EDT [facility] Blood BLOOD SPECIMEN / Unknown Venipuncture / Unknown 03/31/2025 9:24 AM EDT 03/31/2025 9:24 AM EDT us Jacqueline Servin MD LABORATORY Final Result [facility] [address] [facility] [address] [address], [place] * LIPID PANEL, FASTING (03/31/2025 9:24 AM EDT) Cholesterol, Total 163 <200 mg/dL 03/31/2025 5:39 PM EDT [facility] Comment: <200 mg/dL, Desirable 200-239 mg/dL, Borderline high >239 mg/dL, High Triglyceride 75 <150 mg/dL 03/31/2025 5:39 PM EDT [facility] Comment: <150 mg/dL, Normal 150-199 mg/dL, Borderline high 200-499 mg/dL, High >499 mg/dL, Very high HDL Cholesterol 74 >39 mg/dL 5:39 PM T [facility] Comment: 40-59 mg/dL, Acceptable >59 mg/dL, High: Negative risk factor for coronary heart disease <40 mg/dL, Low: Positive risk factor for coronary heart disease LDL Cholesterol, Calculated 75 <100 mg/dL 03/31/2025 5:39 PM T [facility] Comment: <100 mg/dL, Optimal 100-129 mg/dL, Near optimal/above optimal 130-159 mg/dL, Borderline high 160-189 mg/dL, High >189 mg/dL, Very high Secondary prevention optimal LDL Cholesterol levels are recommended to be <70 mg/dL LDL cholesterol is calculated using the Shaffer-NIH equation. Non HDL Cholesterol 89 <130 mg/dL 03/31/2025 5:39 PM T [facility] Comment: <130 mg/dL, Optimal 130-159 mg/dL, Near optimal/above optimal 160-189 mg/dL, Borderline high 190-219 mg/dL, High >219 mg/dL, Very high Secondary prevention optimal non HDL Cholesterol levels are recommended to be <100 mg/dL VLDL Cholesterol 11 <30 mg/dL 03/31/20 5:39 PM EDT [facility] TC:HDL Ratio 2.20 <5.10 03/31/2025 5:39 PM EDT [facility] LDL:HDL Ratio 1.01 <2.54 03/31/2025 5:39 PM EDT [facility] Comment: Reference: 1. National Cholesterol Education Program ATP III Guideline At-A-Glance Quick Desk Reference: National Heart, Lung, and Blood [place]. National Institutes of Health. 2001: NIH Publication No. 01-3305. 2. An International Atherosclerosis Society position paper: global recommendations for the management of dyslipidemia: executive summary, Atherosclerosis. 2014: 232(2):410-413. Fasting Time 12 hrs 03/31/2025 5:[address] [facility] Blood BLOOD SPECIMEN / Unknown Venipuncture / Unknown 03/31/2025 9:24 AM EDT 03/31/2025 9:24 AM EDT us Jacqueline Servin MD LABORATORY Final Result Performing Organization Address City/[facility]/ZIP Co de Phone Number [facility] [address] [place] [address], [facility] [address] [place] [address] * GGT (03/31/2025 9:24 AM EDT) Only the most recent of4 resultswithin the time period is included. GGT 6 6 - 46 U/L 03/31/2025 5:39 PM EDT [facility] Blood BLOOD SPECIMEN / Unknown Venipuncture / Unknown 03/31/2025 9:24 AM EDT 03/31/2025 9:24 AM EDT us Elizabeth Morejon CLINICAL RESEARCH COORDINATOR.CUSTOMS DIRECTOR LABORATORY Final R esult [facility] [place] [address], * (ABNORMAL) COMPREHENSIVE METABOLIC PANEL (03/31/2025 9:24 AM EDT) Only the most recent of6 resultswithin the time period is included. [facility] Protein, Total 6.3 6.3 - 8.0 g/dL 03/31/2025 10:29 AM [facility] Albumin 4.2 3.9 - 4.9 g/dL 03/31/2025 10:29 AM [facility] Calcium, Total 9.0 8.5 - 10.2 mg/dL 03/31/2025 10:29 AM [facility] Bilirubin, Total 0.4 0.2 - 1.3 mg/dL 03/31/2025 10:29 AM [facility] Alkaline Phosphatase 77 34 - 123 U/L 03/31/2025 10:29 AM [facility] AST 14 13 - 35 U/L 03/31/2025 10:29 AM [facility] ALT 6(L) 7 - 38 U/L 03/31/2025 10:29 AM [facility] Glucose 103(H) 74 - 99 mg/dL 03/31/2025 10:29 AM [facility] Comment: The [place] Diabetes Association (ADA) provides guidance for cutoff [...] Standards of Medical Care in Diabetes 2016, [place] Diabetes Association. Diabetes Care. 2016.39(Suppl 1). BUN 17 7 - 21 mg/dL 03/31/2025 10:29 AM [facility] Creatinine 0.93 0.58 - 0.96 mg/dL 03/31/2025 10:29 AM [facility] Sodium 138 136 - 144 mmol/L 03/31/2025 10:[address] [facility] Potassium 4.7 3.7 - 5.1 mmol/L 03/31/2025 10:[address] [facility] Chloride 106 98 - 107 mmol/L 03/31/2025 10:[address] [facility] CO2 24 22 - 30 mmol/L 03/31/2025 10:[address] [facility] Anion Gap 8 8 - 15 mmol/L 03/31/2025 10:[address] [facility] Estimated Glomerular Filtration Rate 77 >=60 mL/min/1. 73m 03/31/2025 10:[address] [facility] Comment:Estimated Glomerular Filtration Rate (eGFR) is calculated [...] actual GFR. Blood BLOOD SPECIMEN / Unknown Venipuncture / Unknown 03/31/2025 9:24 AM EDT 03/31/2025 9:24 AM EDT us Elizabeth Morejon CLINICAL RESEARCH COORDINATOR.CUSTOMS DIRECTOR LABORATORY Final R esult [facility] [address] [place] [address] * (ABNORMAL) COMPLETE BLOOD COUNT AND DIFFERENTIAL (03/31/2025 9:24 AM EDT) Only the most recent of6 resultswithin the time period is included. WBC 4.63 3.70 - 11.00 k/uL 03/31/2025 9:[address] [facility] RBC 3.68(L) 3.90 - 5.20 m/uL 03/31/2025 9:[address] [facility] Hemoglobin 11.1(L) 11.5 - 15.5 g/dL 03/31/2025 9:[address] [facility] Hematocrit 34.3(L) 36.0 - 46.0 % 03/31/2025 9:[address] [facility] MCV 93.2 80.0 - 100.0 fL 03/31/2025 9:[address] [facility] MCH 30.2 26.0 - 34.0 pg 03/31/2025 9:[address] [facility] MCHC 32.4 30.5 - 36.0 g/dL 03/31/2025 9:[address] [facility] RDW-CV 13.4 11.5 - 15.0 % 03/31/2025 9:[address] [facility] Platelet Count 144(L) 150 - 400 k/uL 03/31/2025 9:[address] [facility] Comment:Results checked and verified.No clot detected. MPV 11.4 9.0 - 12.7 fL 03/31/2025 9:[address] [facility] Neutrophils % 70.8 % 03/31/2025 9:[address] [facility] Abs Neut 3.27 1.45 - 7.50 k/uL 03/31/2025 9:[address] [facility] Lymphocytes % 15.1 % 03/31/2025 9:[address] [facility] Abs Lymph 0.70(L) 1.00 - 4.00 k/uL 03/31/2025 9:[address] [facility] Monocytes % 11.4 % 03/31/2025 9:[address] [facility] Abs [place] 0.53 <0.87 k/uL 03/31/2025 9:[address] [facility] Eosinophils % 1.7 % 03/31/2025 9:[address] [facility] Abs Eosin 0.08 <0.46 k/uL 03/31/2025 9:[address] [facility] Basophils % 0.4 % 03/31/2025 9:[address] [facility] Abs Baso <0.03 <0.11 k/uL 03/31/2025 9:[address] [facility] Immature Granulocytes % 0.6 % 03/31/2025 9:[address] [facility] Abs Immature Gran 0.03 <0.10 k/uL 03/31/2025 9:[address] [facility] NRBC 0.0 /100 WBC 03/31/2025 9:[address] [facility] Absolute nRBC <0.01 <0.01 k/uL 03/31/2025 9:[address] [facility] Diff Type Auto 03/31/2025 9:[address] [facility] Blood BLOOD SPECIMEN / Unknown Venipuncture / Unknown 03/31/2025 9:24 AM EDT 03/31/2025 9:24 AM EDT us Elizabeth Morejon CLINICAL RESEARCH COORDINATOR.CUSTOMS DIRECTOR LABORATORY Final R esult [facility] [address] [place] [address] * UA DIP, URINE (POC) (02/03/2025 10:49 AM EDT) GLUCOSE UA (POCT) Negative Negative mg/dL [facility] BILIRUBIN UA (POCT) Negative Negative [facility] KETONE UA (POCT) Negative Negative mg/dL [facility] SPECIFIC GRAVITY UA (POCT) 1.020 1.005 - 1.030 [facility] HEMOGLOBIN/BLOOD UA (POCT) Negative Negative [facility] PH UA (POCT) 6.0 4.5 - 8.0 [facility] PROTEIN UA (POCT) Negative Negative mg/dL [facility] UROBILINOGEN UA (POCT) 0.2 Normal E.U./dL [facility] NITRITE UA (POCT) Negative Negative [facility] LEUKOCYTES UA (POCT) Negative Negative [facility] COLOR UA (POCT) [facility] CLARITY UA (POCT) Clear [facility] 02/03/2025 10:4 9 AM EDT Narrative [facility] - 02/03/2025 10:49 AM EDT Location:[facility], [address] [place] [address], [id number] [facility] Provider POC TESTING Final Result Performing Organization Address [facility]/ZIP Co de Phone Number [facility] [address] * PROTEIN / CREATININE RATIO (02/03/2025 10:39 AM EDT) Protein, Urine Random 9 0 - 20 mg/dL 02/03/2025 9:08 PM EDT [facility] Creatinine, Ur Random (UCRR) 115.5 20.0 - 300.0 mg/dL 02/03/2025 9:08 PM EDT [facility] Protein/Creat Ratio 0.08 <0.15 mg/mg 02/03/2025 9:08 PM EDT [facility] Comment: Adult Proteinuria Categories: <0.15 mg/mg is considered normal to mildly increased 0.15 - 0.50 mg/mg is considered moderately increased >0.50 mg/mg is considered severely increased KDIGO. (2013). KDIGO 2012 Clinical Practice Guideline for the Evaluation and Management of Chronic Kidney Disease. Official Journal of the International Society of Nephrology, 3(1), 1-150. Urine URINE SPECIMEN / Unknown Non Blood / Unknown 02/03/2025 10:39 AM EDT 02/03/2025 11:07 AM EDT Julieta Vaughn MD LABORATORY Final Result Performing Organization Address City/[facility]/ZIP Co de Phone Number [facility] [address] [place] [address] [address] [place] [address], [place] * ALLOGEN POST-TX DSA RPT (01/22/2025 8:16 AM EDT) 01/22/2025 8:16 AM EDT Narrative OTHER LAB - 01/22/2025 8:16 AM EDT [facility] [address] [place] [address] - [place] [address] ([facility]) CLIA ID# [id number] Director: Dr. 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 LUMINEX BEAD MFI VALUES: CLASS II ANTIGEN: DQ6 (DQB1*06:03, DQA1*01:03) Serum Dates & Attributes: MFI Values: 11/05/2024 Post-Tx 1732 11/21/2024 Post-Tx 1093 12/09/2024 Post-Tx 1280 12/31/2024 Post-Tx 1507 01/21/2025 Post-Tx 1122 COMMENTS: Donor specific HLA antibody to allelic DQ6 (DQB1*06:03, DQA1*01:03) was detected in the 01/21/2025 Post-Tx sample with the 2022 Liver allograft. MFI values appear to be stable. FINAL REVIEW BY: Aneta Whitaker / Rosales Rodriguez 01/22/2025 Patient Samples: Sample Date SpecimenTypeCd Status Code Comments 01/21/2025 WB Active 12/31/2024 WB Active 12/09/2024 WB Active 11/21/2024 WB Active 11/05/2024 WB Active ABBREVIATIONS: DSA = donor specific antibody MFI = mean fluorescence intensity NT = not requested, not tested, not needed -Antibody testing performed using Luminex and/or Flow Beads. -HLA antibody results are reported based upon the antibody assay kit defined panel specificities. -Weak antibody designated for results of >= 1000 and < 4000 MFI. -Strong antibody designated for results of >= 4000 MFI for HLA-A, B, DR, DQ and >= 12,000 MFI for HLA-C, DP and/or C1q positive. -Bw4/6 may be assigned by association. This test was developed and its performance characteristics determined by [facility]. The test has not been cleared or approved by the [place] FDA. However, FDA approval was not necessary since this lab is certified under CLIA for high complexity testing. This note was electronically signed by Rosales Rodriguez on 01/22/2025 at 16:42 [facility] Provider [facility] Final Result OTHER LAB * KID/WARE REC POST TX DSA (01/21/2025 10:03 AM EDT) Results to Follow See [employer] report to follow 01/28/2025 11:01 AM EDT [facility] Blood BLOOD SPECIMEN / Unknown Venipuncture / Unknown 01/21/2025 10:03 AM EDT 01/21/2025 10:03 AM EDT Jacqueline Servin MD ALLOGEN Final Result Performing Organization Address [facility] de Phone Number [facility] [address] [id number] [place] [address], [place] * HEMOGLOBIN A1C (10/03/2024 10:02 AM EST) Hemoglobin A1C 5.1 4.3 - 5.6 % 10/03/2024 4:46 PM EST [facility] Comment:[place] Diabetes As sociation guidelines indicate that patients with HgbA1c in the range 5.7-6.4% are at increased risk for development of diabetes, and intervention by lifestyle modification may be beneficial. HgbA1c greater or equal to 6.5% is considered diagnostic of diabetes. Estimated Average Glucose 100 mg/dL 10/03/2024 4:46 PM EST [facility] Comment:eAG: (Estimated aver age glucose) is a calculated value from HgbA1c and is cash posting representative of the average blood glucose level in the last 2-3 month period. Blood BLOOD SPECIMEN / Unknown Venipuncture / Unknown 10/03/2024 10:02 AM EST 10/03/2024 10:02 AM EST Kriss Chris MD LABORATORY Final Result Performing Organization Address City/[facility] Co de Phone Number [facility] [address] [place] [address], * HEPATITIS C VIRUS (HCV) RNA, QUANTITATIVE PCR, PLASMA/SERUM (08/28/2024 11:21 AM EST) Pathologist [facility] HCV RNA Not detected Not detected DOMINGA AVERY 6800 08/28/2024 10:03 PM EST [facility] Blood BLOOD SPECIMEN / Unknown Venipuncture / Unknown 08/28/2024 11:21 AM EST 08/28/2024 11:22 AM EST [facility] - 08/28/2024 10:03 PM EST avery HCV is an in vitro nucleic acid amplification test for both the detection and quantitation of hepatitis C virus RNA, in human EDTA plasma or serum, of HCV antibody positive or HCV-infected individuals. The linear range of the assay is 15 to 100,000,000 IU/mL (1.18 - 8.00 log IU/mL). The lower limit of detection of the assay is 15 IU/mL. Jacqueline Servin MD LABORATORY Final Result [facility] [address] [place] [address], * HIV 1/2 COMBO WITH REFLEX TO DIFFERENTIATION (07/24/2024 12:33 PM EST) Pathologist [facility] HIV 12 Combo (Ag/Ab) Nonreactive Nonreactive 07/24/2024 5:46 PM [facility] HIV-1/2 AB (Confirmatory) 07/24/2024 5:46 PM [facility] Comment:Test not indicated. HIV Interpretation 07/24/2024 5:46 PM [facility] Comment: No evidence of HIV-1 or HIV-2 infection. Should recent infection be suspected, repeat testing may be considered 2-3 weeks after this draw. [place] Rev. Code 3701.243(E): This information has been disclosed to you from confidential records protected from disclosure by state law. You shall make no further disclosure of this information without the specific, written, and informed release of the individual to whom it pertains or as otherwise permitted by state law. A general authorization for the release of medical or other information is not sufficient for the purpose of the release of HIV test results or diagnoses. Blood BLOOD SPECIMEN / Unknown Venipuncture / Unknown 07/24/2024 12:33 PM EST 07/24/2024 1:08 PM EST us Marcia Constantino MD LABORATORY Final Result [facility] [address] [address] [place] [address], * PAP FLUID VAGINAL VAULT SCREENING (05/18/2023 10:34 AM EDT) Case Report Gynecologic Cytology Report Case: [id number] Authorizing Provider: Kristin Ann MD Collected: 05/18/2023 10:34 AM Ordering Location: [place] [address] Received: 05/18/2023 01:58 PM First Screen: Aimee Brunner CT ASCP Specimen: Pap Test, ThinPrep, Vaginal 05/29/2023 11:17 AM EDT [facility] Specimen Adequacy Satisfactory for interpretation 05/29/2023 11:17 AM EDT [facility] Interpretation Negative for intraepithelial lesion or malignancy. 05/29/2023 11:17 AM [facility] at 1117 EDT Clinical History Routine Exam 2022 11:17 AM EDT [facility] LMP Hysterectomy 2016 023 11:17 AM EDT [facility] HPV Reflex Yes HPV 05/29/2023 11:17 AM [facility] Pap Disclaimer The Pap Smear is a screening test for cervical cancer. False negative results occur with all screening tests, emphasizing the need for rescreening at recommended intervals, and clinical correlation. 05/29/2023 11:17 AM EDT [facility] PAP Yarn Weight And Strength Tester Comment This specimen has been analyzed by the ThinPrep Imaging System, an automated imaging and review system, which assists the laboratory in evaluating cells on ThinPrep Pap tests. Following automated imaging, selected merrill from every slide are reviewed by a personal lines account executive. 05/29/2023 11:17 AM EDT [facility] Performing Lab Technical component, personal lines account executive screening performed at [facility], [address] [place] [address] CLIA# [id number] Diagnostic interpretation performed at [facility], [address] [place] [address] CLIA# [id number] Landscape Painter: Ricardo Dyer M.D. 05/29/2023 11:17 AM EDT [facility] Sterile Fluid/Body Fluid VAGINAL SWAB / Unknown Non Blood / Unknown 05/18/2023 10:34 AM EDT 05/18/2023 1:58 PM EDT us Kristin Ann MD CYTOLOGY Final Result [facility] [address] [place], [place] [address]k [address] [place] [address], from Last 3 Months or Most Recently Relevant to Health Maintenance Insurance MEDICARE O MEDICARE BLUE ACCESS PPO Mail Code [address] [place] [id number] SELECT [employer]ICAL SELECT MEDICAL FREETEXT PAYOR Advance Directives * Full Code (Latest Code Status on File) Date Activated Date Inactivated Comments 07/24/2023 11:45 AM 07/31/2023 7:52 PM Question Answer Comments Full Code Order Discussed With: Patient * Full Code Date Activated Date Inactivated Comments 05/14/2023 7:38 PM 06/30/2023 5:33 PM Question Answer Comments Full Code Order Discussed With: Patient Care Teams Test Center Manager Relationship Specialty Start Date End Date Afshin Chao [address] [place] [address] PCP - General Family Medicine 05/14/23 Teddy Diehl, RN Registered Nurse Transplant [facility] 06/29/23 Kimberly Madrigal, RN Registered Nurse Transplant Center 03/12/25 [facility] 06/07/23
--- OUTSIDE RECORDS SUMMARY | 2025-04-09 23:33 | XMS_ITS | Encounter Summary ---
Author Organization [employer] Address [facility] [id number] [address] [place] [address] Care Team Providers Care Farm Reporter Name Role Phone Eric Malave MD Primary Care Provider [phone] Encounter Details Date Type Department Care Team (Late st Contact Info) Description 01/23/2023 [facility] [address] [place] [phone] Isatu Garcia CMA Elevated liver enzymes Social History Tobacco Use Types Packs/Day Years [...] PHQ-2 Answer Date Recorded Total Score 8 01/22/2023 Childcare Answer Date Recorded Childcare Unknown 02/24/2019 [...] EDT Office Visit [facility] [address] [place] [phone] Eric Malave MD [address] [place] [phone] documented as of this encounter Procedures Procedure Name Priority Date/Time Associated Diagnosis Comments AMB REFERRAL TO GASTROENTEROLOGY Routine 12/18/2022 Elevated liver enzymes HM COLONOSCOPY WITH EGD Routine 10/30/2022 documented in this encounter Results * Ambulatory referral to Gastroenterology (12/18/2022) 12/18/2022 us Afshin Mclean MD OUTPATIENT REFERRAL ORDERABL ES Final Result Performing Organization Address [facility] Co de Phone Number MANUALLY TRANSCRIBED RESULTS * HM COLONOSCOPY WITH EGD (10/30/2022) 10/30/2022 Impressions MANUALLY TRANSCRIBED RESULTS - 10/30/2022 Per office repeat cscope in 3 yrs us Scanning Provider External [facility] Ed ited Result - Final Performing Organization Address City/[facility] Co de Phone Number MANUALLY TRANSCRIBED RESULTS documented in this encounter Visit Diagnoses Diagnosis Elevated liver enzymes Other nonspecific abnormal serum enzyme levels documented in this encounter Additional Health Concerns Infection Onset Date Last Indicated Resolved Time Enteric Rule-Out 09/05/2023 09/05/2023 09/12/2023 11:12 PM EST Assessment Noted Time PHQ-9 Depression Total Score: 8 01/23/20 23 7:00 AM EDT A Body Mass Index follow-up plan has been documented for the patient 12/19/2018 3:58 PM EDT documented as of this encounter Care Teams Farm Reporter Relationship Specialty Start Date End Date Eric Malave MD [address] [place] [address] PCP - General Internal Medicine 02/13/25 documented as of this encounter
--- OUTSIDE RECORDS SUMMARY | 2025-04-09 23:33 | XMS_ITS | Encounter Summary ---
Author Organization [facility] Address [id number] [address] [place] [address] Care Team Providers Care Translator Interpreter Name Role Phone Eric Malave MD Primary Care Provider [phone] Encounter Details Date Type Department Care Team (Late Contact Info) Description 11/01/2022 [facility] [address] [place] [phone] External, Scanning Provider Social History Tobacco Use [...] EDT Office Visit [facility] [address] [place] [phone] Eric Malave MD [address] [place], [place] [phone] documented as of this encounter Procedures Procedure Name Priority Date/Time Associated Diagnosis Comments EGD Routine 10/30/2022 documented in this encounter Results * EGD (10/30/2022) us Scanning Provider External GI PROCEDURE ORDERABL ES Final Result MANUALLY TRANSCRIBED RESULTS documented in this encounter Visit Diagnoses Not on filedocumented in this encounter Additional Health Concerns Infection Onset Date Last Indicated Resolved Time Enteric Rule-Out 09/05/2023 09/05/2023 09/12/2023 11:12 PM EST Assessment Noted Time PHQ-9 Depression Total Score: 8 09/15/20 22 7:00 AM EST A Body Mass Index follow-up plan has been documented for the patient 12/19/2018 3:58 PM EDT documented as of this encounter Care Teams Translator Interpreter Relationship Specialty Start Date End Date Eric Malave MD [address] [place] [address] PCP - General Internal Medicine 02/13/25 documented as of this encounter
--- OUTSIDE RECORDS SUMMARY | 2025-04-09 23:33 | XMS_ITS | Encounter Summary ---
Author Organization [employer] Address [facility] [id number] [address] [place] [address] Care Team Providers Care Carcass Trimmer Name Role Phone Eric Malave MD Primary Care Provider [phone] Reason for Visit * Reason Onset Date Comments Transition Of Care 08/17/2023 Encounter Details Date Type Department Care Team (Late st Contact Info) Description 08/17/2023 Telephone [facility] Family Medicine [address] [place] [phone] Chinyere Stevens, MINAL Transition Of Care (/) Social History Tobacco Use Types Packs/Day Years [...] got money to buy more. Never True 05/14/2023 Within the past 12 months th e food we bought just didn't last and we didn't have money to get more. Never True 05/14/2023 Purpose - Life Answer Date Recorded Purpose [...] Telephone Encounter - Chinyere Stevens RN - 08/17/2023 8:45 AM EST Transition of Care Additional Questions/Concerns Requiring PCP Follow-Up: Patient declines need for EDGAR with Dr Gonzalez at this time. This documentation is being used for Transition of Care purposes: Yes Goal: Patient will demonstrate a safe transition from facility to home. 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 Metabolic Encephalopathy HTN DM2 CHF Obesity Wxrx-ya-[id number]-bypass in 2019 Ambulatory dysfunction GERD REGINALD ADL dysfunction Debility Adjustment disorder with mixed anxiety/depression S/P Covid Discharge Specialty: Gastroenterology, Infectious Disease, Nephrology, and Other Name of Discharging Facility: [facility] Date of Facility Discharge: 08/16/23 07/21/23 - 07/31/23 [facility]- [facility] Date of Interactive Contact and Name of Sql Ssrs Ssis Developer: Medication Review Completed: Yes Medication Reconciliation Questions/Concerns: Multiple medications added to MAR from DC summary Follow Up Appointments with Providers: Primary: Afshin Gonzalez MD EDGAR needs scheduled has an established patient visit on 09/26/23. Specialty: Specialty: Specialty: Review of Pending Lab/Diagnostic Tests and Plan for Completion: Her abd wound is improving- minimal brown drainage. Wound is packed and dressing being changed every day. Assessment and Support of Treatment Regimen Adherence and Medication Management: No pain Appetite- better at home than at hospital Familiar with medicaitons Home with for support DME: hospital bed ordered at ID, bedside commode Education Provided by ACN to Support Self-Management, Independent Living and ADLs: Reviewed medications Fall safety Wound care, signs of complications Diet- small frequent meals Call MD for new or worsening symptoms Follow up with providers as scheduled CN contact information provided and can follow for minumum of 30 day's. Communication with Home Health Agencies and Other Services Utilized/Needed by the Patient: [facility] M-W-F NEXT 08/18/23 AT 645 AM DME ORDERS SENT TO SEC Watch documented in this encounter Plan of Treatment Upcoming Encounters Date Type Department Care Team (Late st Contact Info) Description 06/08/2025 9:30 AM EDT Office Visit [facility] [address] [place] [phone] Eric Malave MD [address] [place] [address] documented as of this encounter Goals Goal [...] documented as of this encounter Care Teams Carcass Trimmer Relationship Specialty Start Date End Date Eric Malave MD [address] [place] [address] PCP - General Internal Medicine 02/13/25 documented as of this encounter
--- OUTSIDE RECORDS SUMMARY | 2025-04-09 23:33 | XMS_ITS | Encounter Summary ---
Author Organization [facility] Address [address] [place] [address] Care Team Providers Care Platform Architect Name Role Phone ChaoAfshin Primary Care Provider [phone] Teddy Diehl RN Unavailable Unavailable Kimberly Madrigal RN Unavailable Unavailable Source Comments In the event this information is protected by the Federal Confidentiality of Alcohol and Drug AbusePatient Records regulations: The Federal rules restrict any use of the information to criminally investigate or prosecute any alcohol or drug abuse patient.[facility] Encounter Details Date Type Department Care Team (Late st Contact Info) Description 01/10/2024 Patient Msg Gastroenterology [address] [phone] Provider, [facility] Appointment reminder Social History Tobacco Use Types Packs/Day Years [...] is lower risk 8 05/17/2023 Data from: https://www.neighborhoodatlas.medicine.[facility].edu/. Last address used for calculation [address] [facility] 05/17/2023 Comments No Sex and Gender Information Value Date Recorded Sex Assigned at Not on file Legal Sex Female 2:40 AM EDT Gender Identity Not on file Sexual Orientation Not on file documented as of this encounter Plan of Treatment Upcoming Encounters Date Type Department Care Team (Late st Contact Info) Description 05/06/2025 11:00 AM EDT Office Visit [facility] [address] [address] Clinic, Kidney Txp [address] [place] [address] Kid Txp - follow up appointment in Transplant clinic on 05/06/2025 documented as of this encounter Visit Diagnoses Not on filedocumented in this encounter Care Teams Platform Architect Relationship Specialty Start Date End Date Afshin Chao [address] [place] [address] PCP - General Family Medicine 05/14/23 Teddy Diehl, RN Registered Nurse Transplant Center 06/29/23 Kimberly Madrigal, RN Registered Nurse Transplant Center 03/12/25 [facility] 06/07/23 documented as of this encounter
--- OUTSIDE RECORDS SUMMARY | 2025-04-09 23:33 | XMS_ITS | Encounter Summary ---
Author Organization [facility] Address [address] [place] [address] Care Team Providers Care Ict Quality Assurance Engineer Name Role Phone ChaoAfshin Primary Care Provider [phone] Teddy Diehl RN Unavailable Unavailable Kimberly Madrigal RN Unavailable Unavailable Source Comments In the event this information is protected by the Federal Confidentiality of Alcohol and Drug AbusePatient Records regulations: The Federal rules restrict any use of the information to criminally investigate or prosecute any alcohol or drug abuse patient.[facility] Encounter Details Date Type Department Care Team (Late st Contact Info) Description 07/16/2024 Get Medical Advice Transplant Center [address] [phone] Provider, [facility] Kidney Social History Tobacco Use Types Packs/Day Years [...] risk 8 05/17/2023 Data from: https://www.neighborhoodatlas.medicine.[facility].edu/. Last address used for calculation [address] [facility] 05/17/2023 Comments No Sex and Gender Information Value Date Recorded Sex Assigned at Not on file Legal Sex Female 2:40 AM EDT Gender Identity Not on file Sexual Orientation Not on file documented as of this encounter Plan of Treatment Upcoming Encounters Date Type Department Care Team (Late st Contact Info) Description 05/06/2025 11:00 AM EDT Office Visit Transplant Center [address] [address] Clinic, Kidney Txp [address] [place] [address] Kid Txp - follow up appointment in Transplant clinic on 05/06/2025 documented as of this encounter Visit Diagnoses Not on filedocumented in this encounter Care Teams Ict Quality Assurance Engineer Relationship Specialty Start Date End Date Afshin Chao [address] [place] [address] PCP - General Family Medicine 05/14/23 Teddy Diehl, RN Registered Nurse [facility] Center 06/29/23 Kimberly Madrigal, RN Registered Nurse Transplant Center 03/12/25 [facility] 06/07/23 documented as of this encounter
--- OUTSIDE RECORDS SUMMARY | 2025-04-09 23:33 | XMS_ITS | Encounter Summary ---
Author Organization [facility] Address [address] [place] [address] Care Team Providers Care Deputy Bailiff Name Role Phone ChaoAfshin Primary Care Provider [phone] Teddy Diehl RN Unavailable Unavailable Kimberly Madrigal RN Unavailable Unavailable Source Comments In the event this information is protected by the Federal Confidentiality of Alcohol and Drug AbusePatient Records regulations: The Federal rules restrict any use of the information to criminally investigate or prosecute any alcohol or drug abuse patient.[facility] Encounter Details Date Type Department Care Team (Late st Contact Info) Description 07/11/2024 Get Medical Advice Transplant Center [address] [place] [phone] Provider, [facility] Lab Social History Tobacco Use Types Packs/Day Years [...] risk 8 05/17/2023 Data from: https://www.neighborhoodatlas.medicine.[facility].edu/. Last address used for calculation [address] [facility] 05/17/2023 Comments No Sex and Gender Information Value Date Recorded Sex Assigned at Not on file Legal Sex Female 2:40 AM EDT Gender Identity Not on file Sexual Orientation Not on file documented as of this encounter Plan of Treatment Upcoming Encounters Date Type Department Care Team (Late st Contact Info) Description 05/06/2025 11:00 AM EDT Office Visit Transplant Center [address] [address] Clinic, Kidney Txp [address] [place] [address] Kid Txp - follow up appointment in Transplant clinic on 05/06/2025 documented as of this encounter Visit Diagnoses Not on filedocumented in this encounter Care Teams Deputy Bailiff Relationship Specialty Start Date End Date Afshin Chao [address] [place] [address] PCP - General Family Medicine 05/14/23 Teddy Diehl, RN Registered Nurse [facility]plant Center 06/29/23 Kimberly Madrigal, RN Registered Nurse Transplant Center 03/12/25 [facility] 06/07/23 documented as of this encounter
--- OUTSIDE RECORDS SUMMARY | 2025-04-09 23:33 | XMS_ITS | Encounter Summary ---
Author Organization [employer] Address [facility] [id number] [address] [place] [address] Care Team Providers Care Assistant Corporation Counsel Name Role Phone Eric Malave MD Primary Care Provider [phone] Encounter Details Date Type Department Care Team (Late st Contact Info) Description 01/24/2023 Orders Only [facility] [address] [place] [phone] Afshin Mclean MD [address]. Provider retired 12/16/24 [place], [place] [phone] Social History Tobacco Use Types Packs/Day Years [...] Office Visit [facility] [address] [place] [address] Eric Malave MD [address] [place] [phone] documented as of this encounter Visit Diagnoses [...] documented as of this encounter Care Teams Assistant Corporation Counsel Relationship Specialty Start Date End Date Eric Malave MD [address] [place] [phone] PCP - General Internal Medicine 02/13/25 documented as of this encounter
--- OUTSIDE RECORDS SUMMARY | 2025-04-09 23:33 | XMS_ITS | Encounter Summary ---
Author Organization [facility] Address [address] [place] [address] Care Team Providers Care Airborne Sensor Specialist Name Role Phone ChaoAfshin Primary Care Provider [phone] Teddy Diehl RN Unavailable Unavailable Kimberly Madrigal RN Unavailable Unavailable Source Comments In the event this information is protected by the Federal Confidentiality of Alcohol and Drug AbusePatient Records regulations: The Federal rules restrict any use of the information to criminally investigate or prosecute any alcohol or drug abuse patient.[facility] Encounter Details Date Type Department Care Team (Late st Contact Info) Description 03/28/2024 Patient Msg Transplant Center [address] [id number] Provider, Ccf dance director Quality Control Microbiology Supervisor contact phone number CHANGE Social History Tobacco Use Types Packs/Day Years [...] is lower risk 8 05/17/2023 Data from: https://www.neighborhoodatlas.medicine.[facility]/. Last address used for calculation [address] [...] AM EDT Office Visit Transplant Center [address] [address] Clinic, Kidney Txp [address] [place] [address] Kid Txp - follow up appointment in Transplant clinic on 05/06/2025 documented as of this encounter Visit Diagnoses Not on filedocumented in this encounter Care Teams Airborne Sensor Specialist Relationship Specialty Start Date End Date Afshin Chao [address] [place] [address] PCP - General Family Medicine 05/14/23 Teddy Diehl, RN Registered Nurse Transplant Center 06/29/23 Kimberly Madrigal, RN Registered Nurse Transplant Center 03/12/25 YAIR [facility]iz [employer] Community Resource 06/07/23 documented as of this encounter
--- OUTSIDE RECORDS SUMMARY | 2025-04-09 23:33 | XMS_ITS | Clinical Summary ---
Author Organization [facility] Address [address] [place] [address] Care Team Providers Care Accordion Tuner Name Role Phone Unavailable Primary Care Provider Unavailabl e Social History Tobacco Use Types Packs/Day Years Used Date Smoking Tobacco: Never Assessed [place] Safety & Environment Answer Date Rec orded Fear of Current or Ex-Partner Not on file Emotionally Abused Not on file 11/09/2023 Physically Abused Not on file 11/09/2023 Sexually Abused Not on file 11/09/2023 Physically or Sexually Abused Not on file Comments Unknown Sex and Gender Information Value Date Recorded Sex Assigned at Not on file Legal Sex Female 9:08 PM EST Gender Identity Not on file Sexual Orientation Not on file Plan of Treatment Health Maintenance Due Date Last Done Comments CT Colonography 1979 Colonoscopy 1979 Colorectal Cancer Screening 1979 Diabetes: Hemoglobin A1C 1979 FIT-DNA 1979 FIT 1979 FOBT 1979 Sigmoidoscopy 1979 Diabetes: Retinopathy Screening 11/27/1989 Depression Screening 1991 Diabetes: Urine Protein Screening 11/27/1998 Hepatitis B Vaccines (1 of 3 - 19+ 3-dose series) 11/27/1998 HPV/Cotest 11/27/2009 COVID-19 Vaccine (3 - Pfizer risk series) 03/31/2021 03/03/2021, 03/03/2021, 02/10/2021, Additional history exists Zoster Vaccines (2 of 2) 07/17/2023 05/22/2023 Influenza Vaccine (#1) 2025 , 06/26/2020, 07/09/2018, Additional history exists Mammogram 12/09/2025 12/10/2023 Cervical Cancer Screening 05/18/2026 Pap Smear 05/18/2026 05/18/2023 Adult Tetanus 05/19/2033 05/19/2023, 11/19/2013 Pneumococcal Vaccine: Pediatrics (0 to 5 Years) and At-Risk Patients (6 to 64 Years) Completed 05/19/2023 HIB Vaccines Aged Out No longer eligi ble based on patient's age to complete this topic HPV Vaccines Aged Out No longer eligi ble based on patient's age to complete this topic IPV Vaccines Aged Out No longer eligi ble based on patient's age to complete this topic Meningococcal B Vaccine Aged Out No l onger eligible based on patient's age to complete this topic Meningococcal Vaccine Aged Out No kathia jarod eligible based on patient's age to complete this topic Rotavirus Vaccines Aged Out No longer eligible based on patient's age to complete this topic Insurance [facility]
--- OUTSIDE RECORDS SUMMARY | 2025-04-09 23:33 | XMS_ITS | Encounter Summary ---
Author Organization [facility] Address [address] [place] [address] Care Team Providers Care Fire Technology Instructor Name Role Phone ChaoAfshin Primary Care Provider [phone] Teddy Diehl RN Unavailable Unavailable Kimberly Madrigal RN Unavailable Unavailable Source Comments In the event this information is protected by the Federal Confidentiality of Alcohol and Drug AbusePatient Records regulations: The Federal rules restrict any use of the information to criminally investigate or prosecute any alcohol or drug abuse patient.[facility] Encounter Details Date Type Department Care Team (Late st Contact Info) Description 05/22/2024 Patient Msg Transplant Center [address] [phone] Provider, Ralf Out of Office May 23, 2024- June 01, 2024 Social History Tobacco Use Types Packs/Day Years [...] is lower risk 8 05/17/2023 Data from: https://www.neighborhoodatlas.medicine.[facility].edu/. Last address used for calculation [address] 05/17/2023 Comments No Sex and Gender Information Value Date Recorded Sex Assigned at Not on file Legal Sex Female 2:40 AM EDT Gender Identity Not on file Sexual Orientation Not on file documented as of this encounter Plan of Treatment Upcoming Encounters Date Type Department Care Team (Late st Contact Info) Description 05/06/2025 11:00 AM EDT Office Visit Transplant Center [address] [address] Clinic, Kidney Txp [address] [place], [place] [phone] Kid Txp - follow up appointment in Transplant clinic on 05/06/2025 documented as of this encounter Visit Diagnoses Not on filedocumented in this encounter Care Teams Fire Technology Instructor Relationship Specialty Start Date End Date Afshin Chao [address] [place] [address] PCP - General Family Medicine 05/14/23 Teddy Diehl, RN Registered Nurse Transplant Center 06/29/23 Kimberly Madrigal, RN Registered Nurse Transplant Center 03/12/25 YAIR [employer] Community Resource 06/07/23 documented as of this encounter
--- OUTSIDE RECORDS SUMMARY | 2025-04-09 23:33 | XMS_ITS | Encounter Summary ---
Author Organization [facility] Address [address] [place] [address] Care Team Providers Care Take Down Inspector Name Role Phone arron Afshin Gavin Primary Care Provider [phone] Teddy Diehl RN Unavailable Unavailable Kimberly Madrigal RN Unavailable Unavailable Source Comments In the event this information is protected by the Federal Confidentiality of Alcohol and Drug AbusePatient Records regulations: The Federal rules restrict any use of the information to criminally investigate or prosecute any alcohol or drug abuse patient.[facility] Reason for Visit * Reason Comments Refill Request Encounter Details Date Type Department Care Team (Late st Contact Info) Description 04/30/2024 Refill Transplant Center [address] [phone] Coordinator, Liver Txp [address] [place] [address] Refill Request Social History Tobacco Use Types Packs/Day [...] lower risk 8 05/17/2023 Data from: https://www.neighborhoodatlas.medicine.[facility]/. Last address used for calculation [address] [facility] 05/17/2023 Comments No Sex and Gender Information Value Date Recorded Sex Assigned at Not on file Legal Sex Female 2:40 AM EDT Gender Identity Not on file Sexual Orientation Not on file documented as of this encounter Miscellaneous Notes * Telephone Encounter - Teddy Diehl RN - 05/01/2024 10:24 AM EDT Patient's request for medication is as follows: Requested Prescriptions Pending Prescriptions Disp Refills tacrolimus IR (PROGRAF) 1 mg capsule 420 capsule 11 Sig: Take 7 capsules by mouth two times a day. Please approve the above prescription(s) to electronically send to pharmacy. Teddy Diehl RN * Telephone Encounter - Sveta Olsen - 04/30/2024 5:41 PM EDT Patient phones requesting refills as follows: Requested Prescriptions Pending Prescriptions Disp Refills tacrolimus IR (PROGRAF) 1 mg capsule 420 capsule 11 Sig: Take 7 capsules by mouth two times a day. Please review and advise. Sveta Olsen documented in this encounter Plan of Treatment Upcoming Encounters Date Type Department Care Team (Late st Contact Info) Description 05/06/2025 11:00 AM EDT Office Visit Transplant Center [address] [address] Clinic, Kidney Txp [address] [place] [address] Kid Txp - follow up appointment in Transplant clinic on 05/06/2025 documented as of this encounter Visit Diagnoses Diagnosis Liver replaced by transplant (HCC) Liver replaced by transplant documented in this encounter Care Teams Take Down Inspector Relationship Specialty Start Date End Date Afshin Chao [address] [place] [address] PCP - General Family Medicine 05/14/23 Teddy Diehl, RN Registered Nurse Transplant Center 06/29/23 Kimberly Madrigal, RN Registered Nurse Transplant Center 03/12/25 YAIR Muniz [facility] Community Resource 06/07/23 documented as of this encounter
--- OUTSIDE RECORDS SUMMARY | 2025-04-09 23:33 | XMS_ITS | Encounter Summary ---
Author Organization [facility] Address [address] [place] [address] Care Team Providers Care Life Science Teacher Name Role Phone arron Afshin Gavin Primary Care Provider [phone] Teddy Diehl RN Unavailable Unavailable Kimberly Madrigal RN Unavailable Unavailable Source Comments In the event this information is protected by the Federal Confidentiality of Alcohol and Drug AbusePatient Records regulations: The Federal rules restrict any use of the information to criminally investigate or prosecute any alcohol or drug abuse patient.[facility] Reason for Visit * Reason Comments [employer] Encounter Details Date Type Department Care Team (Late st Contact Info) Description 08/12/2024 Patient Update Case Management [address] [phone] Jose Ryder, RN [employer] Social History Tobacco Use Types Packs/Day Years Used Date Smoking Tobacco: Former Cigarettes Smokeless Tobacco: Never Alcohol Use Standard Drinks/Week Comments Not Currently 0 (1 standard drink = 0.6 oz pur e alcohol) [facility] Utilities Answer Date Recorded In the past [...] time in the past 12 m [facility], were you homeless or living in a detention (including now)? No 08/11/2024 Area Deprivation Index Answer Date Justin rded National Score (1-100), lower number is lower ri sk 88 05/17/2023 State Score (1-10), lower number is lower risk 8 05/17/2023 Data from: https://www.neighborhoodatlas.medicine.[facility].edu/. Last address used for calculation [address] [place] [address] 05/17/2023 Comments No Sex and Gender Information [...] AM EDT Office Visit Transplant Center [address] [address] Clinic, Kidney Txp [address] [place] [address] Kid Txp - follow up appointment in Transplant clinic on 05/06/2025 documented as of this encounter Visit Diagnoses Not on filedocumented in this encounter Care Teams Life Science Teacher Relationship Specialty Start Date End Date Afshin Chao [address] [place] [address] PCP - General Family Medicine 05/14/23 Teddy Diehl, RN Registered Nurse Transplant Center 06/29/23 Kimberly Madrigal, MINAL Registered Nurse Transplant Center 03/12/25 YAIR [employer] Community Resource 06/07/23 documented as of this encounter
--- OUTSIDE RECORDS SUMMARY | 2025-04-09 23:33 | XMS_ITS | Clinical Summary ---
Author Organization [facility] Address [address] [place] [address] Care Team Providers Care Ecology Teacher Name Role Phone Unavailable Primary Care Provider Unavailabl e Social History Tobacco Use Types Packs/Day Years Used Date Smoking Tobacco: Never Assessed Comments Unknown Sex and Gender Information Value Date Recorded Sex Assigned at Not on file Legal Sex Female 11:30 AM EDT Gender Identity Not on file Sexual Orientation Not on file Plan of Treatment Health Maintenance Due Date Last Done Comments Cologuard (average risk only) 1979 Colonoscopy 1979 Colorectal Cancer Screening 1979 FIT (average risk only) 1979 Hepatitis C Screening 1979 Alternating Mammogram/MRI 1991 DTaP,Tdap,and Td Vaccines (1 - Tdap) 11/27/1998 Hepatitis B Vaccine ages 19 years and older (1 of 3 - 19+ 3-dose series) 11/27/1998 Breast Cancer Screening 1999 Mammogram 1999 Cervical Cancer Screening: Cytology 11/27/2000 COVID-19 Vaccine (2023-2 5 season) 2024 Influenza Vaccine (#1) 2025 Respiratory Syncytial Virus (RSV) or ages 60 years and older (1 - 1-dose 75+ series) 11/27/2054 Pneumococcal Combined Aged Out No kathia jarod eligible based on patient's age to complete this topic Respiratory Syncytial Virus (RSV) ages 0 thru 19 months Aged Out No longer eligible based on patient's age to complete this topic
--- OUTSIDE RECORDS SUMMARY | 2025-04-09 23:33 | XMS_ITS | Encounter Summary ---
Author Organization [facility] Address [address] [place] [address] Care Team Providers Care Computer Game Tester Name Role Phone arron Afshin Gavin Primary Care Provider [phone] Teddy Diehl RN Unavailable Unavailable Kimberly Madrigal RN Unavailable Unavailable Source Comments In the event this information is protected by the Federal Confidentiality of Alcohol and Drug AbusePatient Records regulations: The Federal rules restrict any use of the information to criminally investigate or prosecute any alcohol or drug abuse patient.[facility] Encounter Details Date Type Department Care Team (Late st Contact Info) Description 07/29/2024 Telephone Endocrinology [address] [phone] Ad Contreras APRN.PAINT FORMULATOR [address] [place], [place] [id number] Social History Tobacco Use Types Packs/Day Years Used Date Smoking Tobacco: Former Cigarettes Smokeless Tobacco: Never Alcohol Use Standard Drinks/Week Comments Not Currently 0 (1 standard drink = 0.6 oz pur e alcohol) [facility] Utilities Answer Date Recorded In the past 12 months has [employer] electric, gas, oil, or water company threatened to shut off services in your home? No 07/25/2024 PHQ-2 Answer Date Recorded PHQ-2 score 0 01/02/2024 Hunger Vital Sign Answer Date Recorded Within the past 12 months, y ou worried that your food would run out before you got the money to buy more. Never true 07/25/20 24 Within the past 12 months, t he food you bought just didn't last and you didn't have money to get more. Never true 07/25/2024 PRAPARE - Transportation Answer Date Re corded In the past 12 months, has l ack of transportation kept you from medical appointments or from getting medications? No 04/2024 In the past 12 months, has l ack of transportation kept you from meetings, work, or from getting things needed for daily living? No 07/25/2024 Housing Stability Vital Sign Answer Vinnie e Recorded In the last 12 months, was t here a time when you were not able to pay the mortgage or rent on time? No 07/25/2024 Number of Times Moved in the Last Year Not on fi le 07/25/2024 At any time in the past 12 m [facility], were you homeless or living in a intermediate (including now)? No 07/25/2024 Area Deprivation Index Answer Date Justin rded National Score (1-100), lower number is lower ri sk 88 05/17/2023 State Score (1-10), lower number is lower risk 8 05/17/2023 Data from: https://www.neighborhoodatlas.medicine.[facility].edu/. Last address used for calculation [address] [facility] 05/17/2023 Comments No Sex and Gender Information Value Date Recorded Sex Assigned at Not on file Legal Sex Female 2:40 AM EDT Gender Identity Not on file Sexual Orientation Not on file documented as of this encounter Functional Status * Are you deaf or do you have serious difficulty hearing? Answer Date of Assessment Author No 07/28/2024 1:08 PM Yaa Wright RN * Are you blind or do you have serious difficulty seeing, even when wearing glasses? Answer Date of Assessment Author No 07/28/2024 1:08 PM Yaa Wright RN * Do you have serious difficulty walking or climbing stairs? Answer Date of Assessment Author No 07/28/2024 1:08 PM Yaa Wright RN * Do you have difficulty dressing or bathing? Answer Date of Assessment Author No 07/28/2024 1:08 PM Yaa Wright RN * Because of a physical, mental, or emotional condition, do you have difficulty doing errands alone such as visiting a doctor's office or shopping? Answer Date of Assessment Author No 07/28/2024 1:08 PM Yaa Wright RN documented as of this encounter Mental Status * Because of a physical, mental, or emotional condition, do you have serious difficulty concentrating, remembering, or making decisions? Answer Entry Date Author No 07/28/2024 1:08 PM Yaa Wright RN documented in this encounter Miscellaneous Notes * Telephone Encounter - Ad Contreras APRN.PAYAM - 07/29/2024 6:17 PM EST Patient is status post kidney transplant. Called patient to follow up on blood sugars. Blood sugarsspiking with meals yesterday, but today patient had 2 hypoglycemic events after meals. Will reduce prandial insulin to 7 units tomorrow morning. Patient voiced understanding documented in this encounter Plan of Treatment Upcoming Encounters Date Type Department Care Team (Late st Contact Info) Description 05/06/2025 11:00 AM EDT Office Visit Transplant Center [address] [address] Clinic, Kidney Txp [address] [place] [address] Kid Txp - follow up appointment in Transplant clinic on 05/06/2025 documented as of this encounter Visit Diagnoses Not on filedocumented in this encounter Care Teams Computer Game Tester Relationship Specialty Start Date End Date Afshin Chao [address] [place] [address] PCP - General Family Medicine 05/14/23 Teddy Diehl, RN Registered Nurse Transplant Center 06/29/23 Kimberly Madrigal, MINAL Registered Nurse Transplant Center 03/12/25 YAIR [employer] Community Resource 06/07/23 documented as of this encounter
--- OUTSIDE RECORDS SUMMARY | 2025-04-09 23:33 | XMS_ITS | Encounter Summary ---
Author Organization [facility] [facility] Address [id number] [address] [place] [address] Care Team Providers Care Linen Supply Load Builder Name Role Phone Eric Malave MD Primary Care Provider [phone] Reason for Visit * Reason Onset Date Comments Med Refill 08/31/2021 Encounter Details Date Type Department Care Team (Late st Contact Info) Description 08/31/2021 Refill [facility] [address] [place] [phone] Kimberly Covington CMA Social History Tobacco Use Types Packs/Day Years [...] PHQ-2 Answer Date Recorded Total Score 0 06/07/2021 Childcare Answer Date Recorded Childcare Unknown 02/24/2019 [...] Miscellaneous Notes * Telephone Encounter - Kimberly Covington CMA - 08/31/2021 2:44 PM EST Requesting documented in this encounter Plan of Treatment Upcoming Encounters Date Type Department Care Team (Late st Contact Info) Description 06/08/2025 9:30 AM EDT Office Visit [facility] [address] [place] [phone] Eric Malave MD [address] [place] [address] documented as of this encounter Visit Diagnoses Not on filedocumented in this encounter Additional Health Concerns Infection Onset Date Last Indicated Resolved Time Enteric Rule-Out 09/05/2023 09/05/2023 09/12/2023 11:12 PM EST Assessment Noted Time PHQ-9 Depression Total Score: 0 06/07/20 3:00 PM EDT A Body Mass Index follow-up plan has been documented for the patient 12/19/2018 3:58 PM EDT documented as of this encounter Care Teams Linen Supply Load Builder Relationship Specialty Start Date End Date Eric Malave MD [address] [place] [address] PCP - General Internal Medicine 02/13/25 documented as of this encounter
--- OUTSIDE RECORDS SUMMARY | 2025-04-09 23:33 | XMS_ITS | Encounter Summary ---
Author Organization [facility] Address [address] [place] [address] Care Team Providers Care Bag Filler Machine Operator Name Role Phone ChaoAfshin Primary Care Provider [phone] Teddy Diehl RN Unavailable Unavailable Kimberly Madrigal RN Unavailable Unavailable Source Comments In the event this information is protected by the Federal Confidentiality of Alcohol and Drug AbusePatient Records regulations: The Federal rules restrict any use of the information to criminally investigate or prosecute any alcohol or drug abuse patient.[facility] Encounter Details Date Type Department Care Team (Late st Contact Info) Description 12/20/2023 Patient Msg Gastroenterology [address] [phone] Provider, Ccf Appointment reminder Social History Tobacco [...] [facility].edu/. Last address used for calculation [facility] 05/17/2023 Comments No Sex and Gender Information Value Date Recorded Sex Assigned at Not on file Legal Sex Female 2:40 AM EDT Gender Identity Not on file Sexual Orientation Not on file documented as of this encounter Plan of Treatment Upcoming Encounters Date Type Department Care Team (Late st Contact Info) Description 05/06/2025 11:00 AM EDT Office Visit Transplant Center [address] [address] Clinic, Kidney Txp [address] [place] [address] Kid Txp - follow up appointment in Transplant clinic on 05/06/2025 documented as of this encounter Visit Diagnoses Not on filedocumented in this encounter Care Teams Bag Filler Machine Operator Relationship Specialty Start Date End Date Afshin Chao [address] [place] [address] PCP - General Family Medicine 05/14/23 Teddy Diehl, RN Registered Nurse Transplant Center 06/29/23 Kimberly Madrigal, RN Registered Nurse Transplant Center 03/12/25 [facility] [employer] Community Resource 06/07/23 documented as of this encounter
--- OUTSIDE RECORDS SUMMARY | 2025-04-09 23:33 | XMS_ITS | Encounter Summary ---
Author Organization [facility] [facility] Address [id number] [address] [place] [address] Care Team Providers Care Avionics Mechanic Name Role Phone Eric Malave MD Primary Care Provider [phone] Reason for Visit * Reason Comments Med Refill Encounter Details Date Type Department Care Team ([facility] st Contact Info) Description 06/19/2023 Refill [facility] [address] [phone] Afshin Mclean MD [address]. Provider retired 12/16/24 [place] [address] Social History Tobacco Use Types Packs/Day Years [...] Telephone Encounter - Keysha Calderon LPN - 06/19/2023 12:26 AM EDT [facility] Valsartan documented in this encounter Plan of Treatment Upcoming Encounters Date Type Department Care Team (Late st Contact Info) Description 06/08/2025 9:30 AM EDT Office Visit [facility] [address] [place] [phone] Eric Malave MD [address] [place] [address] documented as of this encounter Goals Goal [...] documented as of this encounter Care Teams Avionics Mechanic Relationship Specialty Start Date End Date Eric Malave MD [address] [place] [address] PCP - General Internal Medicine 02/13/25 documented as of this encounter
--- NOTE | 2025-04-09 23:45 | ECG_ITS ---
[facility] Test Date: 2025-04-09 Pat Name: DONNELL MEHTA Department: Room: - Gender: Female Internship Coordinator: : 1980 Requested By: [id number] Order Number: [id number] Reading MD: CHAPARRO HEMPHILL M.D. Measurements Intervals [place] Rate: 79 P: 40 MN: 152 QRS: -22 QRSD: 106 T: 39 QT: 386 QTc: 421 Interpretive Statements 1100 Sinus rhythm 2440 Incomplete right bundle branch block 5211 Minimal voltage criteria for LVH, may be normal variant 7202 Moderate left axis deviation 9130 borderline ECG Compared to ECG 05/20/2022 23:04:09 Left ventricular hypertrophy now present Left-axis deviation now present Left anterior fascicular block no longer present Electronically Signed On 04-10-2025 6:50:44 EDT by CHAPARRO HEMPHILL M.D.
[2025-04-10] MEDS: 0.9 % SODIUM CHLORIDE 1,000 ML 1000 ML IV (00:05)
[2025-04-10 00:30] VITALS: BP 164/98
[2025-04-10 01:22] LABS: Hematocrit 40.2 % (36.0-48.0); Hemoglobin 12.9 g/dL (12.0-16.0); Immature Granulocytes Abs Auto 0.05 10^3/uL (0.00-0.03); Immature Granulocytes Pct Auto 0.8 % (0.0-0.5); Lymphocytes Absolute Auto 1.0 10^3/uL (1.2-3.8); Mean Corpuscular HGB Conc 32.1 g/dL (29.9-35.2); Mean Corpuscular Hemoglobin 29.5 pg (26.7-34.0); Mean Corpuscular Volume 91.8 fL (81.0-99.0); Platelet Count 166 10^3/uL (150-450); Red Blood Count 4.38 10^6/uL (4.20-5.40); White Blood Count 6.2 10^3/uL (4.0-11.0)
[2025-04-10 01:31] LABS: Alanine Aminotransferase 18 U/L (14-59); Albumin Globulin Ratio 1.2; Albumin Level 4.4 g/dL (3.4-5.0); Alkaline Phosphatase 103 U/L (46-116); Anion Gap 15.3; Aspartate Amino Transferase 21 U/L (15-37); Blood Urea Nitrogen 11.0 mg/dL (7.0-18.0); Calcium 8.8 mg/dL (8.5-10.1); Carbon Dioxide 25.4 mmol/L (21.0-32.0); Chloride 106 mmol/L (98-107); Estimated GFR (African America >60 (>=60 mL/min/1.73m^2); Estimated GFR (Non-African Ame >60 (>=60 mL/min/1.73m^2); Globulin 3.7 g/dL; Glucose 135 mg/dL (74-106); Potassium 3.7 mmol/L (3.5-5.1); Salicylate <2.8 mg/dL (<=19.9); Sodium 143 mmol/L (136-145); Total Protein 8.1 g/dL (6.4-8.2)
[2025-04-10 01:33] LABS: Acetaminophen <2.0 ug/mL (10.0-30.0)
--- NOTE | 2025-04-10 01:34 | ED_ITS ---
HPI - Psych General Chief Complaint: Psychiatric Symptoms Stated Complaint: SUICIDAL IDEATION Time Seen by Provider: 04/09/25 23:32 Source: Reports patient Mode of arrival: ambulance Limitations: Reports no limitations History of Present Illness HPI Narrative: This 44-year-old female who is status post kidney and liver transplant in the past is brought to the emergency department from home by EMS. She states she had a liver transplant in 2022 and a kidney transplant in 2023. She had cirrhosis apparently and after her liver transplant went into kidney failure. Apparently she has been fighting with her daughter recently. The patient states that she took several tablespoons of ZzzQuil as well as 1 Benadryl, a melatonin gummy, 1 ashwaganda and had 2 margaritas. When the bottle of ZzzQuil was discovered and empty it was thought that she was attempting to overdose. Upon arrival the patient flatly denies that this was an overdose attempt. She states she was trying to get some sleep. She states why would I go through having a kidney and liver transplant and then end my life. She does admit to being on antidepressants and anxiety medications. She is nauseated and having dry heaves which she states is from taking all of these medications. Related Data Allergies Allergy/AdvReac Type Severity Reaction Status Date / Time lisinopril Allergy Severe Anaphylaxis Verified 04/09/25 23:20 Review of Systems ROS Status of ROS 10 or more systems reviewed and unremark able except as noted in history and below PFSH PFSH Social History Little interest or pleasure in doing things: not at all Feeling down, depressed, or hopeless: not at all Exam Narrative Exam Narrative: Vital signs and Nursing Notes reviewed: Patient is afebrile with a normal pulse, blood pressure is elevated at 181/101, she is not hypoxic with pulse ox of 97% on room air General: Awake, alert, oriented, nauseated with dry heaves, no respiratory distress HEENT: Normocephalic atraumatic, mucous membranes are moist and pink, eyes are clear-pupils are 4 to 5 mm, equal and reactive Chest: Lungs are clear to auscultation with good air entry, there is no wheezing rhonchi or rales appreciated no accessory muscle use, patient is speaking in complete sentences-no chest wall tenderness to palpation CVS: Regular rate and rhythm S1-S2, no murmurs rubs or gallops, pulses are brisk and equal bilaterally ABD: Soft, nondistended, nontender, no rebound guarding or rigidity, bowel sounds are normal, no pulsatile masses appreciated Extremities: Moving all extremities, no lower extremity tenderness or swelling noted, negative Homans' sign, pulses are brisk and equal bilaterally Skin: Normal in appearance without rash,pallor, petechiae or purpura Neuro: No focal deficits Psych: Admits to history of anxiety and depression but denies suicidal or homicidal ideation Constitutional Vital Signs, click to edit/add: Last Vital Signs Temp 98 F 04/09/25 23:20 Pulse 82 04/09/25 23:20 Resp 18 04/09/25 23:20 BP 164/98 H 04/10/25 04:54 Pulse Ox 97 04/09/25 23:20 O2 Del Method Room Air 04/09/25 23:20 Course Vital Signs Vital signs: Vital Signs Temperature 98 F 04/09/25 23:20 Pulse Rate 82 04/09/25 23:20 Respiratory Rate 18 04/09/25 23:20 Blood Pressure 181/101 H 04/09/25 23:20 Pulse Oximetry 97 04/09/25 23:20 Oxygen Delivery Method Room Air 04/09/25 23:20 Temperature 98 F 04/09/25 23:20 Pulse Rate 82 04/09/25 23:20 Respiratory Rate 18 04/09/25 23:20 Blood Pressure 164/98 H 04/10/25 04:54 Pulse Oximetry 97 04/09/25 23:20 Oxygen Delivery Method Room Air 04/09/25 23:20 MDM - Psych MDM Narrative Medical decision making narrative: This 44-year-old female with a history of a kidney and liver transplant as well as depression and anxiety was brought the emergency department from home after she took melatonin, Benadryl, ZzzQuil, Ashwaganda and had 2 margaritas earlier in the evening. Apparently she has been arguing with her daughter and when the bottle of ZzzQuil was found 911 was called and she was brought to the emergency department for evaluation of a suicide attempt. She flatly denies that she is suicidal. Medical clearance workup was ordered. Her EKG is a sinus rhythm at 79 bpm. An IV is placed and she was medicated with IV fluids and Zofran for her dry heaves and nausea. She has normal white count and stable hemoglobin. Electrolytes are normal. Liver function tests are normal. Alcohol is 111. Aspirin and Tylenol levels are normal. Urine tox is positive for THC. She slept in the ED overnight and remained alert, easily arousable and stable. She is medically cleared. She will be signed out to the incoming physician at 7 AM with recommendation for evaluation by [facility]. Lab Data Attestation: I reviewed the patient's lab results. Labs: Lab Results 04/10/25 04/10/25 Range/Units 00:01 01:37 WBC 6.2 (4.0-11.0) 10^3/uL RBC 4.38 (4.20-5.40) 10^6/uL Hgb 12.9 (12.0-16.0) g/dL Hct 40.2 (36.0-48.0) % MCV 91.8 (81.0-99.0) fL MCH 29.5 (26.7-34.0) pg MCHC 32.1 (29.9-35.2) g/dL RDW 13.1 (11.0-15.0) % Plt Count 166 (150-450) 10^3/uL MPV 11.4 (9.5-13.5) fL Neut % (Auto) 72.1 (43.0-75.0) % Lymph % (Auto) 15.5 L (20.5-60.0) % [place] % (Auto) 10.3 (1.7-12.0) % Eos % (Auto) 1.0 (0.9-7.0) % Baso % (Auto) 0.3 (0.2-2.0) % Neut # (Auto) 4.5 (1.4-6.5) 10^3/uL Lymph # (Auto) 1.0 L (1.2-3.8) 10^3/uL [place] # (Auto) 0.6 (0.3-0.8) 10^3/uL Eos # (Auto) 0.1 (0.0-0.7) 10^3/uL Baso # (Auto) 0.0 (0.0-0.1) 10^3/uL Abs Immat Gran (auto) 0.05 H (0.00-0.03) 10^3/uL Imm/Tot Granulo (auto) 0.8 H (0.0-0.5) % Sodium 143 (136-145) mmol/L Potassium 3.7 (3.5-5.1) mmol/L Chloride 106 (98-107) mmol/L Carbon Dioxide 25.4 (21.0-32.0) mmol/L Anion Gap 15.3 BUN 11.0 (7.0-18.0) mg/dL Creatinine 0.84 (0.55-1.02) mg/dL Est GFR ( Amer) >60 (>=60 mL/min/1.73m^2) Est GFR (Non-Af Amer) >60 (>=60 mL/min/1.73m^2) BUN/Creatinine Ratio 13.1 Glucose 135 H (74-106) mg/dL Calcium 8.8 (8.5-10.1) mg/dL Total Bilirubin 0.5 (0.2-1.0) mg/dL AST 21 (15-37) U/L ALT 18 (14-59) U/L Alkaline Phosphatase 103 (46-116) U/L Total Protein 8.1 (6.4-8.2) g/dL Albumin 4.4 (3.4-5.0) g/dL Globulin 3.7 g/dL Albumin/Globulin Ratio 1.2 Salicylates <2.8 (<=19.9) mg/dL Urine Opiates Screen Negative (NEGATIVE) Ur Buprenorphine Scrn Negative (NEGATIVE) Ur Oxycodone Screen Negative (NEGATIVE) Urine Methadone Screen Negative (NEGATIVE) Acetaminophen <2.0 L (10.0-30.0) ug/mL Ur Barbiturates Screen Negative (NEGATIVE) U Tricyclic Antidepress Negative (NEGATIVE) Ur Phencyclidine Scrn Negative (NEGATIVE) Ur Amphetamines Screen Negative (NEGATIVE) U Methamphetamines Scrn Negative (NEGATIVE) U Benzodiazepines Scrn Negative (NEGATIVE) Urine Cocaine Screen Negative (NEGATIVE) U Cannabinoids Screen Positive A (NEGATIVE) Ethanol Quant 111 mg/dL ECG Data Attestation: I personally reviewed and interpreted this ECG as follows: (Sinus rhythm at 79 bpm, incomplete right bundle branch block, left axis deviation, minimal voltage criteria for LVH, no acute ST segment elevation or T wave inversion) Discharge Plan Discharge Patient Disposition: Still a Patient
[2025-04-10 01:54] LABS: Cannabinoid Screen Urine POSITIVE (NEGATIVE); Methamphetamines Screen Urine NEGATIVE (NEGATIVE); Tricyclic Antidepressant Urine NEGATIVE (NEGATIVE)
[2025-04-10 04:54] VITALS: BP 164/98
--- NOTE | 2025-04-10 11:24 | ED.GENADUL1 ---
HPI HPI - General Adult General Chief complaint: Psychiatric Symptoms Stated complaint: SUICIDAL IDEATION Time Seen by Provider: 04/09/25 23:32 Source: patient Mode of arrival: ambulance Limitations: no limitations History of Present Illness HPI narrative: The patient was initially seen by Dr. Arriaga and signed out to me at change of shift. Please see her full history and physical exam. Related Data Allergies Allergy/AdvReac Type Severity Reaction Status Date / Time lisinopril Allergy Severe Anaphylaxis Verified 04/09/25 23:20 Opioid HPI Opioid Management Most Recent Opioid Data: Ur Phencyclidine Scrn, (NEGATIVE) Negative Today, 01:37 PFSH PFSH Social History Little interest or pleasure in doing things: not at all Feeling down, depressed, or hopeless: not at all Exam Constitutional Vital Signs, click to edit/add: Last Vital Signs Temp 98 F 04/09/25 23:20 Pulse 82 04/09/25 23:20 Resp 18 04/09/25 23:20 BP 164/98 H 04/10/25 04:54 Pulse Ox 97 04/09/25 23:20 O2 Del Method Room Air 04/09/25 23:20 Course Vital Signs Vital signs: Vital Signs Temperature 98 F 04/09/25 23:20 Pulse Rate 82 04/09/25 23:20 Respiratory Rate 18 04/09/25 23:20 Blood Pressure 181/101 H 04/09/25 23:20 Pulse Oximetry 97 04/09/25 23:20 Oxygen Delivery Method Room Air 04/09/25 23:20 Temperature 98 F 04/09/25 23:20 Pulse Rate 82 04/09/25 23:20 Respiratory Rate 18 04/09/25 23:20 Blood Pressure 164/98 H 04/10/25 04:54 Pulse Oximetry 97 04/09/25 23:20 Oxygen Delivery Method Room Air 04/09/25 23:20 Medical Decision Making MDM Narrative Medical decision making narrative: The patient is medically cleared. She has been interviewed by mental health services and will be admitted at [facility]. She has had pink slip filled out by mental health services. Differential Diagnosis Differential Diagnosis: Depression, suicidal ideation, substance abuse Lab Data Lab results reviewed: Yes I reviewed the patient's lab results Labs: Lab Results 04/10/25 04/10/25 Range/Units 00:01 01:37 WBC 6.2 (4.0-11.0) 10^3/uL RBC 4.38 (4.20-5.40) 10^6/uL Hgb 12.9 (12.0-16.0) g/dL Hct 40.2 (36.0-48.0) % MCV 91.8 (81.0-99.0) fL MCH 29.5 (26.7-34.0) pg MCHC 32.1 (29.9-35.2) g/dL RDW 13.1 (11.0-15.0) % Plt Count 166 (150-450) 10^3/uL MPV 11.4 (9.5-13.5) fL Neut % (Auto) 72.1 (43.0-75.0) % Lymph % (Auto) 15.5 L (20.5-60.0) % [place] % (Auto) 10.3 (1.7-12.0) % Eos % (Auto) 1.0 (0.9-7.0) % Baso % (Auto) 0.3 (0.2-2.0) % Neut # (Auto) 4.5 (1.4-6.5) 10^3/uL Lymph # (Auto) 1.0 L (1.2-3.8) 10^3/uL [place] # (Auto) 0.6 (0.3-0.8) 10^3/uL Eos # (Auto) 0.1 (0.0-0.7) 10^3/uL Baso # (Auto) 0.0 (0.0-0.1) 10^3/uL Abs Immat Gran (auto) 0.05 H (0.00-0.03) 10^3/uL Imm/Tot Granulo (auto) 0.8 H (0.0-0.5) % Sodium 143 (136-145) mmol/L Potassium 3.7 (3.5-5.1) mmol/L Chloride 106 (98-107) mmol/L Carbon Dioxide 25.4 (21.0-32.0) mmol/L Anion Gap 15.3 BUN 11.0 (7.0-18.0) mg/dL Creatinine 0.84 (0.55-1.02) mg/dL Est GFR ( Amer) >60 (>=60 mL/min/1.73m^2) Est GFR (Non-Af Amer) >60 (>=60 mL/min/1.73m^2) BUN/Creatinine Ratio 13.1 Glucose 135 H (74-106) mg/dL Calcium 8.8 (8.5-10.1) mg/dL Total Bilirubin 0.5 (0.2-1.0) mg/dL AST 21 (15-37) U/L ALT 18 (14-59) U/L Alkaline Phosphatase 103 (46-116) U/L Total Protein 8.1 (6.4-8.2) g/dL Albumin 4.4 (3.4-5.0) g/dL Globulin 3.7 g/dL Albumin/Globulin Ratio 1.2 Salicylates <2.8 (<=19.9) mg/dL Urine Opiates Screen Negative (NEGATIVE) Ur Buprenorphine Scrn Negative (NEGATIVE) Ur Oxycodone Screen Negative (NEGATIVE) Urine Methadone Screen Negative (NEGATIVE) Acetaminophen <2.0 L (10.0-30.0) ug/mL Ur Barbiturates Screen Negative (NEGATIVE) U Tricyclic Antidepress Negative (NEGATIVE) Ur Phencyclidine Scrn Negative (NEGATIVE) Ur Amphetamines Screen Negative (NEGATIVE) U Methamphetamines Scrn Negative (NEGATIVE) U Benzodiazepines Scrn Negative (NEGATIVE) Urine Cocaine Screen Negative (NEGATIVE) U Cannabinoids Screen Positive A (NEGATIVE) Ethanol Quant 111 mg/dL Discharge Plan Discharge Chief Complaint: Psychiatric Symptoms Clinical Impression: Overdose, Depression Patient Disposition: [facility] Time of Disposition Decision: 11:24 Discharge Location: [facility] Condition: Fair Mode of Transportation: EMS
[2025-04-10 12:52] VITALS: O2SAT 99
[2025-04-10 12:57] VITALS: BP 160/80
[2025-04-10] MEDS: METOPROLOL TARTRATE 25 MG TABLET PO (14:17)
== END 2025-04-10 15:22 ==
PROVIDERS: Emergency Medicine; Emergency Provider Emergency Medicine; PCP Family Medicine
DX: F32.A Depression, unspecified (principal); T45.0X2A Poisoning by antiallergic and antiemetic drugs, intentional self-harm, initial encounter; Z94.0 Kidney transplant status; Z94.4 Liver transplant status; R11.0 Nausea; Z79.899 Other long term (current) drug therapy; F41.9 Anxiety disorder, unspecified
CPT/HCPCS: 36415; 80053; 80179; 80307; 80320; 80329; 85025; 93005; 96374; 96376; 99285; J2405